=== PATIENT | female | born 1940 | race African-American/Black ===

== ENCOUNTER 2016-11-30 23:53 | Inpatient (IN) | payer BC ==
[2016-12-01 00:34] VITALS: BMI 31.8
--- NOTE | 2016-12-01 01:20 | PDOC ---
History of Present Illness - General History Source: Patient, Family (Daughter), Old Records Exam Limitations: No Limitations - History of Present Illness Initial Comments: 12/01/16 01:38 The patient is a 76 year old female, with a significant past medical history of hypertension, hyperlipidemia, diabetes, rheumatoid arthritis and kidney CA s/p left nephrectomy, who presents to the emergency department with left knee pain just prior to presentation. The patient states that she was on her way out of the bathroom tonight when her left knee buckled. She called out to her daughter who was able to help her into a chair. The patients daughter is at the bedside. The patients daughter reports that her mother was wearing knee braces recently to stabilize her knees as her knee replacements needed to be redone but her mother did not want to go through another surgery. The patient denies any falls or trauma. The patient denies any numbness or tingling in the lower extremities. The patient denies any other injury. Allergies: Lisinopril; Meperidine HCl Past Surgical History: Left Nephrectomy (04/07/15) secondary to kidney cancer; Total Hysterectomy; Bilateral Knee Replacement (1992) Social History: Non-smoker. Denies alcohol or drug use. <Pili Celis - Last Filed: 12/01/16 01:47> <Vivi Law - Last Filed: 12/05/16 16:22> - General Chief Complaint: Pain, Acute Stated Complaint: KNEE PAIN Time Seen by Provider: 12/01/16 00:40 Past History <Pili Celis - Last Filed: 12/01/16 01:47> - Past Medical History Cancer: Yes (L KIDNEY) HTN: Yes - Surgical History Abdominal Surgery: Yes (L NEPHRECTOMY) - Psycho/Social/Smoking Cessation Hx Suicidal Ideation: No Smoking History: Never smoked Have you smoked in the past 12 months: No Information on smoking cessation initiated: No Hx Alcohol Use: No Drug/Substance Use Hx: No Substance Use Type: None <Vivi Law - Last Filed: 12/05/16 16:22> - Past Medical History Allergies/Adverse Reactions: Allergies Allergy/AdvReac Type Severity Reaction Status Date / Time lisinopril [From Prinivil] Allergy Vomiting Verified 12/01/16 00:07 meperidine HCl [From Demerol] Allergy Vomiting Verified 12/01/16 00:07 Home Medications: Ambulatory Orders Aspirin [ASA -] 81 mg PO HS 08/09/15 Atorvastatin Ca [Lipitor] 40 mg PO HS 08/09/15 Certolizumab Pegol [Cimzia] 400 mg SQ MONTHLY 08/09/15 Metoprolol Succinate [Toprol XL -] 100 mg PO DAILY 08/09/15 Nateglinide [Starlix (Nf) -] 120 mg PO ASDIR 08/09/15 Prednisone [Deltasone -] 5 mg PO DAILY 08/09/15 Ranitidine HCl [Zantac] 150 mg PO DAILY 08/09/15 Sitagliptin Phosphate [Januvia] 100 mg PO DAILY 08/09/15 Valsartan [Diovan] 80 mg PO HS 08/09/15 Amlodipine Besylate 10 mg PO DAILY 12/01/16 Review of Systems - Review of Systems Able to Perform ROS?: Yes Comments:: 12/01/16 01:39 CONSTITUTIONAL: Absent: fever, no chills, no fatigue EYES: Absent: visual changes ENT: Absent: ear pain, no sore throat CARDIOVASCULAR: Absent: chest pain, no palpitations RESPIRATORY: Absent: cough, no SOB GI: Absent: abdominal pain, no nausea, no vomiting, no constipation, no diarrhea GENITOURINARY: Absent: dysuria, no frequency, no hematuria MUSCULOSKELETAL: Present: +Left knee pain Absent: back pain, no myalgia SKIN: Absent: rash NEURO: Absent: headache <TarltonPili cox - Last Filed: 12/01/16 01:47> *Physical Exam - Vital Signs Last Vital Signs Temp Pulse Resp BP Pulse Ox 97.4 F L 80 14 119/72 99 12/01/16 00:08 12/01/16 00:08 12/01/16 00:08 12/01/16 00:08 12/01/16 00:08 - Physical Exam Comments: 12/01/16 01:47 GENERAL: Obese. Well-appearing, well-nourished. No apparent distress. HEENT: Normocephalic, atraumatic. PERRL, EOM intact. CARDIOVASCULAR: Normal S1, S2. Regular rate and rhythm. PULMONARY: Clear to auscultation bilaterally. ABDOMEN: Soft, non-tender. Protuberant abdomen. EXTREMITIES: Significant deformities of the digits related to rheumatoid arthritis. Obvious deformity of the left knee. 2+ dorsalis pedis pulses intact bilaterally. Bipedal edema. SKIN: Warm, dry. No rash. NEUROLOGICAL: Awake, alert and appropriate. Sensation is intact. 2+ proprioception intact. No focal neurological deficits. <Pili Celis - Last Filed: 12/01/16 01:47> - Vital Signs Last Vital Signs Temp Pulse Resp BP Pulse Ox 97.4 F L 80 14 119/72 99 12/01/16 00:08 12/01/16 00:08 12/01/16 00:08 12/01/16 00:08 12/01/16 00:08 <Vivi Law - Last Filed: 12/05/16 16:22> ED Treatment Course - LABORATORY CBC & Chemistry Diagram: 12/04/16 07:45 12/04/16 07:45 - RADIOLOGY Radiology Studies Ordered: Category Date Time Status FEMUR-LEFT [RAD] Stat Radiology 12/01/16 00:47 Taken KNEE 3 POS-LEFT [RAD] Stat Radiology 12/01/16 00:47 Taken LEG TIB/FIB-LEFT [RAD] Stat Radiology 12/01/16 00:47 Taken <Vivi Law - Last Filed: 12/05/16 16:22> *DC/Admit/Observation/Transfer - Attestations Scribe Attestion: 12/01/16 01:30 Documentation prepared by Pili Celis, acting as medical stenographer for Vivi Law MD. <Pili Celis - Last Filed: 12/01/16 01:47> <Vivi Law - Last Filed: 12/05/16 16:22> Diagnosis at time of Disposition: Fracture of distal end of left femur - Discharge Dispostion Disposition: TRANSFER ACUTE CARE/OTHER HOSP Condition at time of disposition: Improved - Referrals
[2016-12-01 02:27] LABS: BASOPHIL 0.3 % (0-2.0); EOSINOPHIL 0.9 % (0-4.5); MCH 31.6 pg (25.7-33.7); MCHC 33.9 g/dl (32.0-36.0); MEAN CELL VOLUME 93.4 fl (80-96); MEAN PLT VOLUME 7.9 fl (7.5-11.1); NEUTROPHILS 77.1 % (42.8-82.8); PLATELET COUNT 242 K/MM3 (134-434); RDW 13.5 % (11.6-15.6); WHITE BLOOD COUNT 10.3 K/mm3 (4.0-10.0)
[2016-12-01 02:45] LABS: INR 1.07 (0.82-1.09); PROTHROMBIN TIME (PATIENT) 11.8 SEC (9.98-11.88)
[2016-12-01 02:54] LABS: ALBUMIN 3.2 g/dl (3.4-5.0); ANION GAP 7 (8-16); BILIRUBIN,TOTAL 0.3 mg/dL (0.2-1.0); CALCIUM 7.5 mg/dL (8.5-10.1); CO2 29 mmol/L (21-32); CREATININE 1.8 mg/dL (0.55-1.02); GLUCOSE,RANDOM 97 mg/dL (74-106); SGOT/AST 22 U/L (15-37); SGPT/ALT 22 U/L (12-78); TOT PROT 7.4 g/dl (6.4-8.2)
[2016-12-01 02:55] LABS: ALK PHOS 50 U/L (45-117)
--- NOTE | 2016-12-01 04:13 | PDOC ---
*Physical Exam - Vital Signs Last Vital Signs Temp Pulse Resp BP Pulse Ox 97.4 F L 80 14 119/72 99 12/01/16 00:08 12/01/16 00:08 12/01/16 00:08 12/01/16 00:08 12/01/16 00:08 ED Treatment Course - LABORATORY CBC & Chemistry Diagram: 12/01/16 02:20 12/01/16 02:20 - ADDITIONAL ORDERS Additional order review: Laboratory Results 12/01/16 12/01/16 02:20 02:20 INR 1.07 Sodium 136 Potassium 4.8 D Chloride 100 Carbon Dioxide 29 Anion Gap 7 L BUN 27 H Creatinine 1.8 H Creat Clearance w eGFR 27.43 Random Glucose 97 Calcium 7.5 L Total Bilirubin 0.3 D AST 22 ALT 22 Alkaline Phosphatase 50 Total Protein 7.4 Albumin 3.2 L 12/01/16 02:20 RBC 3.31 L MCV 93.4 MCHC 33.9 RDW 13.5 MPV 7.9 D Neutrophils % 77.1 D Lymphocytes % 15.8 D Monocytes % 5.9 Eosinophils % 0.9 Basophils % 0.3 - Medications Given in the ED: ED Medications Discontinued Medications Generic Name Dose Route Start Last Admin Trade Name Freq PRN Reason Stop Dose Admin Oxycodone/Acetaminophen 1 combo 12/01/16 02:50 12/01/16 03:09 Percocet 5/325 - PO 12/01/16 02:51 1 combo ONCE ONE Administration *DC/Admit/Observation/Transfer Diagnosis at time of Disposition: Fracture of distal end of left femur Qualifiers: Encounter type: initial encounter Fracture type: closed - Discharge Dispostion Condition at time of disposition: Stable Admit: Yes - Referrals Referrals: STAFF,NOT ON [Primary Care Provider] - - Patient Instructions - Post Discharge Activity
--- NOTE | 2016-12-01 04:40 | PN ---
Teaching Attending Note Name of Resident: Oracio Mistry ATTENDING PHYSICIAN STATEMENT I saw and evaluated the patient. I reviewed the resident's note and discussed the case with the resident. I agree with the resident's findings and plan as documented. SUBJECTIVE: 76 yo F with pmhx of HTN, HLD, DM, RA, Renal Ca s/p L. nephrectomy, who presents with knee pain. States she was on her way to go to the bathroom. She felt her L. Knee give out. States she didn't fall, but sat on a chair. Notes pain in L. Knee. States she is also on chronic steriods due to her RA. OBJECTIVE: Physical: VS: Vital Signs Period Temp Pulse Resp BP Sys/Olson Pulse Ox Last 24 Hr 97.4 F 80 14 119/72 99 GEN: NAD, resting in bed HEENT: NCAT, PERRL, Throat without erythema or exudates CARD: RRR S1, S2 RESP: CTAB ABD: BS X4, - C/C/E EXT: L. knee bent and swollen, pt. unable to straighten, pulses intact bilaterally. CBCD WBC 10.3 K/mm3 (4.0-10.0) H D 12/01/16 02:20 RBC 3.31 M/mm3 (3.60-5.2) L 12/01/16 02:20 Hgb 10.5 GM/dL (10.7-15.3) L 12/01/16 02:20 Hct 30.9 % (32.4-45.2) L 12/01/16 02:20 MCV 93.4 fl (80-96) 12/01/16 02:20 MCHC 33.9 g/dl (32.0-36.0) 12/01/16 02:20 RDW 13.5 % (11.6-15.6) 12/01/16 02:20 Plt Count 242 K/MM3 (134-434) 12/01/16 02:20 MPV 7.9 fl (7.5-11.1) D 12/01/16 02:20 CMP Sodium 136 mmol/L (136-145) 12/01/16 02:20 Potassium 4.8 mmol/L (3.5-5.1) D 12/01/16 02:20 Chloride 100 mmol/L (98-107) 12/01/16 02:20 Carbon Dioxide 29 mmol/L (21-32) 12/01/16 02:20 Anion Gap 7 (8-16) L 12/01/16 02:20 BUN 27 mg/dL (7-18) H 12/01/16 02:20 Creatinine 1.8 mg/dL (0.55-1.02) H 12/01/16 02:20 Creat Clearance w eGFR 27.43 (>60) 12/01/16 02:20 Random Glucose 97 mg/dL (74-106) 12/01/16 02:20 Calcium 7.5 mg/dL (8.5-10.1) L 12/01/16 02:20 Total Bilirubin 0.3 mg/dL (0.2-1.0) D 12/01/16 02:20 AST 22 U/L (15-37) 12/01/16 02:20 ALT 22 U/L (12-78) 12/01/16 02:20 Alkaline Phosphatase 50 U/L (45-117) 12/01/16 02:20 Total Protein 7.4 g/dl (6.4-8.2) 12/01/16 02:20 Albumin 3.2 g/dl (3.4-5.0) L 12/01/16 02:20 Xray: L. Distal femoral fx, with extension to joint replacement Hepatitis Profile WBC 10.3 K/mm3 (4.0-10.0) H D 12/01/16 02:20 RBC 3.31 M/mm3 (3.60-5.2) L 12/01/16 02:20 Hgb 10.5 GM/dL (10.7-15.3) L 12/01/16 02:20 Hct 30.9 % (32.4-45.2) L 12/01/16 02:20 MCV 93.4 fl (80-96) 12/01/16 02:20 Neutrophils % 77.1 % (42.8-82.8) D 12/01/16 02:20 Lymphocytes % 15.8 % (8-40) D 12/01/16 02:20 Monocytes % 5.9 % (3.8-10.2) 12/01/16 02:20 Basophils % 0.3 % (0-2.0) 12/01/16 02:20 Home Medications Medication Instructions Recorded Aspirin [ASA -] 81 mg PO HS 08/09/15 Atorvastatin Ca [Lipitor] 40 mg PO HS 08/09/15 Certolizumab Pegol [Cimzia] 400 mg SQ MONTHLY 08/09/15 Metoprolol Succinate [Toprol Xl -] 100 mg PO DAILY 08/09/15 Nateglinide [Starlix (Nf)] 120 mg PO ASDIR 08/09/15 Prednisone [Deltasone -] 5 mg PO DAILY 08/09/15 Ranitidine HCl [Zantac] 150 mg PO DAILY 08/09/15 Sitagliptin Phosphate [Januvia] 100 mg PO DAILY 08/09/15 Valsartan [Diovan] 80 mg PO HS 08/09/15 Amlodipine Besylate 10 mg PO DAILY 12/01/16 ASSESSMENT AND PLAN: 76 F with pmhf NIDDM, HTN, RA on Cimzia (chronic sterioda), who presents s/p Knee buckeling found to have L. Distal femoral fracture 1.) L. Distal Femoral Fx - Ortho consult - Coags - Repeat CBC - NPO - TYpe and Screem 2.) NIDDM - FS - RAISS - Hold PO meds 3.) HLD - C/W Statin 4.) HTN - C/W Home meds 5.) RA - On CImzia oupt. - C/W Prednisone 6.) DVT Ppx - Mod Risk- AC per Ortho
[2016-12-01] MEDS ORDERED: HYDROmorphone HCL CARPU-JECT 1 MG/1 ML DISP.SYRIN IVPUSH PRN (05:17)
--- NOTE | 2016-12-01 05:44 | HP ---
CHIEF COMPLAINT: Left Knee Pain PCP: Dr. Jeffry Bernal in [place] [phone] HISTORY OF PRESENT ILLNESS: 76 year old F with pmh of HTN, HLD, DM, RA, Kidney CA s/p nephrectomy in 04/2015 presenting to the ED with left knee pain. Patient states her knee buckled as she was leaving the bathroom. Her daughter helped her into a chair. She states the knee pain began suddenly after it buckled and was an 8/10, radiating down her leg. Patient has a hx of bilateral knee replacement >20 yrs ago. Patient was re evaluated 4 years ago and was recommended by her orthopedist to have her knee replacement redone. Patient did not want to undergo a procedure at the time , so she was recommended to wear knee braces. Patient denies fever, chills, SOB, chest pain, numbness, tingling ER course was notable for: (1) CBC- wbc 10.3, BMP- Cr-1.8 (2) Femur X-ray- Left-- distal femur fracture Recent Travel: denies PAST MEDICAL HISTORY: As stated above PAST SURGICAL HISTORY: B/l knee replacement, total hysterectomy, and nephrectomy Social History: Smoking:denies Alcohol:denies Drugs: denies Family History: Allergies lisinopril [From Prinivil] Allergy (Verified 12/01/16 00:07) Vomiting meperidine HCl [From Demerol] Allergy (Verified 12/01/16 00:07) Vomiting HOME MEDICATIONS: Home Medications Medication Instructions Recorded Aspirin [ASA -] 81 mg PO HS 08/09/15 Atorvastatin Ca [Lipitor] 40 mg PO HS 08/09/15 Certolizumab Pegol [Cimzia] 400 mg SQ MONTHLY 08/09/15 Metoprolol Succinate [Toprol Xl -] 100 mg PO DAILY 08/09/15 Nateglinide [Starlix (Nf)] 120 mg PO ASDIR 08/09/15 Prednisone [Deltasone -] 5 mg PO DAILY 08/09/15 Ranitidine HCl [Zantac] 150 mg PO DAILY 08/09/15 Sitagliptin Phosphate [Januvia] 100 mg PO DAILY 08/09/15 Valsartan [Diovan] 80 mg PO HS 08/09/15 Amlodipine Besylate 10 mg PO DAILY 08/30/17 REVIEW OF SYSTEMS CONSTITUTIONAL: Absent: fever, chills, diaphoresis, generalized weakness, malaise, loss of appetite, weight change HEENT: Absent: rhinorrhea, nasal congestion, throat pain, throat swelling, difficulty swallowing, mouth swelling, ear pain, eye pain, visual changes CARDIOVASCULAR: Absent: chest pain, syncope, palpitations, irregular heart rate, lightheadedness , peripheral edema RESPIRATORY: Absent: cough, shortness of breath, dyspnea with exertion, orthopnea, wheezing, stridor, hemoptysis GASTROINTESTINAL: Absent: abdominal pain, abdominal distension, nausea, vomiting, diarrhea, constipation, melena, hematochezia GENITOURINARY: Absent: dysuria, frequency, urgency, hesitancy, hematuria, flank pain, genital pain MUSCULOSKELETAL: Absent: myalgia, arthralgia, joint swelling, back pain, neck pain, +knee pain SKIN: Absent: rash, itching, pallor HEMATOLOGIC/IMMUNOLOGIC: Absent: easy bleeding, easy bruising, lymphadenopathy, frequent infections ENDOCRINE: Absent: unexplained weight gain, unexplained weight loss, heat intolerance, cold intolerance NEUROLOGIC: Absent: headache, focal weakness or paresthesias, dizziness, unsteady gait, seizure, mental status changes, bladder or bowel incontinence PSYCHIATRIC: Absent: anxiety, depression, suicidal or homicidal ideation, hallucinations. PHYSICAL EXAMINATION GENERAL: Awake, alert, and fully oriented, in no acute distress. +OBESE, +SHOALWATER HEAD: Normal with no signs of trauma. EYES: Pupils equal, round and reactive to light, extraocular movements intact, sclera anicteric, conjunctiva clear. No lid lag. EARS, NOSE, THROAT: Ears normal, nares patent, oropharynx clear without exudates. Moist mucous membranes. NECK: Normal range of motion, supple without lymphadenopathy, JVD, or masses. LUNGS: Breath sounds equal, clear to auscultation bilaterally. No wheezes, and no crackles. No accessory muscle use. HEART: Regular rate and rhythm, normal S1 and S2 without murmur, rub or gallop. ABDOMEN: Soft, nontender, not distended, normoactive bowel sounds, no guarding, no rebound, no masses. No hepatomegaly or splenomegaly. MUSCULOSKELETAL: +ULNAR DEVIATION B/L, SIGNIFICANT DEFORMITIES RELATED TO RA, + LEFT KNEE DEFORMITY UPPER EXTREMITIES: 2+ RADIAL pulses, warm, well-perfused. No cyanosis. No clubbing. No peripheral edema. LOWER EXTREMITIES: 2+ DP pulses, warm, well-perfused. No calf tenderness. + BIPEDAL EDEMA NEUROLOGICAL: Cranial nerves II-XII intact. Normal speech. Normal gait. PSYCHIATRIC: Cooperative. Good eye contact. Appropriate mood and affect. SKIN: Warm, dry, normal turgor, no rashes or lesions noted, normal capillary refill. ASSESSMENT/PLAN: 76 year old F with pmh of HTN, HLD, DM, RA, Kidney CA s/p nephrectomy in 04/2015 presenting to the ED with left knee pain admitted for distal femur fracture #Left Distal Femur Fracture -Orthopedic consult, Dr. Gonzales -Type and Screen -PT/INR, PTT -AM CBC -NPO -Pain control with 0.5 mg dilaudid q4h prn -Hold aspirin 81 mg #Diabetes Mellitus, Type 2 -BGM ACHS -ISS ACHS -Hold home medications (Januvia and Nateglinide) #HLD -Continue lipitor 40 mg po hs #HTN -Continue Toporol xl 100 mg po daily -Continue Amlodipine 10 mg po daily -Continue Diovan 80 mg po hs #Rheumatoid Arthritis -Continue Prednisone 5 mg po daily -Patient takes Cimzia 400 mg sq 1x/monthly #FEN/GI -IVF @ 75 cc/hr -wnl -NPO #Ppx -DVT- Early ambulation -GI- Zantac 150 mg po daily Dispo: pending ortho recommendations Visit type - Emergency Visit Emergency Visit: Yes ED Registration Date: 12/01/16 Care time: The patient presented to the Emergency Department on the above date and was hospitalized for further evaluation of their emergent condition. - New Patient This patient is new to me today: Yes Date on this admission: 12/02/16 - Critical Care Critical Care patient: No
[2016-12-01] MEDS: SODIUM CHLORIDE 0.45% 1,000 ML IV SCH (06:00)
[2016-12-01] MEDS: INSULIN SLIDING SCALE (NOVOLOG) 1 VIAL SQ SCH ×4 (07:37→21:25)
[2016-12-01] MEDS: HYDROmorphone HCL CARPU-JECT 1 MG/1 ML DISP.SYRIN IVPB PRN ×3 (10:17→20:19)
[2016-12-01] MEDS: METOPROLOL SUCCINATE 100 MG TAB.SR.24H (FP) PO SCH ×2 (10:18→13:10)
[2016-12-01] MEDS: amLODIPine BESYLATE 10 MG TABLET (FP) PO SCH ×2 (10:18→13:11)
[2016-12-01] MEDS: RANITIDINE HCL 150 MG TABLET (FP) PO SCH ×2 (10:19→13:10)
[2016-12-01] MEDS: predniSONE 5 MG TABLET (UD) PO SCH (10:20)
--- NOTE | 2016-12-01 11:05 | PN ---
Physical Exam: SUBJECTIVE: Patient seen and examined. Patient states her pain is controlled on the medications given to her in the ED. She only has pain when moving the affected limb. Pending ortho consult. OBJECTIVE: Vital Signs Period Temp Pulse Resp BP Sys/Olson Pulse Ox Last 24 Hr 98 F-98.8 F 72-75 18-20 124-128/65-68 97-98 GENERAL: The patient is awake, alert, and fully oriented, in no acute distress. HEAD: Normal with no signs of trauma. NECK: Trachea midline, full range of motion, supple. LUNGS: Breath sounds equal, clear to auscultation bilaterally, no wheezes, no crackles, no accessory muscle use. HEART: Regular rate and rhythm, S1, S2 without murmur, rub or gallop. ABDOMEN: Soft, nontender, nondistended, normoactive bowel sounds, no guarding, no rebound. EXTREMITIES: 2+ pulses, warm, well-perfused. 2+ pitting edema over both lower extremities. Knee replacement scars on both knees. Right knee is warm and swollen. Exquisite tenderness upon extension of right knee. Left lower extremity WNL NEUROLOGICAL: Cranial nerves II through X grossly intact. Normal speech, gait not observed. PSYCH: Normal mood, normal affect. SKIN: Warm, dry, normal turgor, no rashes or lesions noted Laboratory Results - last 24 hr 12/01/16 07:36 POC Glucometer [id number] Active Medications Generic Name Dose Route Start Last Admin Trade Name Freq PRN Reason Stop Dose Admin Amlodipine Besylate 10 mg 12/01/16 10:00 Norvasc - PO DAILY [facility] Atorvastatin Calcium 40 mg 12/01/16 22:00 Lipitor - PO HS CINDY Hydromorphone HCl 0.5 mg 12/01/16 09:53 12/01/16 10:17 Dilaudid Injection - IVPB 0.5 mg Q4H PRN Administration PAIN Sodium Chloride 1,000 mls @ 75 mls/hr 12/01/16 05:30 12/01/16 06:00 1/2 Normal Saline IV 75 mls/hr ASDIR CINDY Administration Insulin Aspart 1 vial 12/01/16 07:00 12/01/16 07:37 Novolog Vial Sliding Scale - SQ Not Given ACHS [facility] Protocol Metoprolol Succinate 100 mg 12/01/16 10:00 Toprol Xl - PO DAILY CINDY Pneumococcal 13-Valent Conj Vacc 0.5 ml 12/01/16 12:00 Prevnar 13 Syringe - IM 12/01/16 12:01 .ONCE ONE Prednisone 5 mg 12/01/16 10:00 12/01/16 10:20 Deltasone - PO Not Given DAILY [facility] Ranitidine HCl 150 mg 12/01/16 10:00 Zantac - PO DAILY [facility] Valsartan 80 mg 12/01/16 22:00 Diovan - PO HS [facility] ASSESSMENT/PLAN: 76 year old F with pmh of HTN, HLD, DM, RA, Kidney CA s/p nephrectomy in 04/2015 presenting to the ED with left knee pain admitted for distal femur fracture #Left Distal Femur Fracture -Orthopedic consult, Dr. Gonzales -Type and Screen -PT/INR, PTT -AM CBC -NPO -Pain control with 0.5 mg dilaudid IVPB q4h prn -Hold aspirin 81 mg #Diabetes Mellitus, Type 2 -BGM ACHS -ISS ACHS -Hold home medications (Januvia and Nateglinide) #HLD -Continue lipitor 40 mg po hs #HTN -Continue Toporol xl 100 mg po daily -Continue Amlodipine 10 mg po daily -Continue Diovan 80 mg po hs #Rheumatoid Arthritis -Continue Prednisone 5 mg po daily -Patient takes Cimzia 400 mg sq 1x/monthly #FEN/GI -IVF @ 75 cc/hr; If patient does not urinate, consider increasing rate to 100ml/ hr -wnl -NPO #Ppx -DVT- Early ambulation -GI- Zantac 150 mg po daily Dispo: pending ortho recommendations Problem List - Problems (1) Fracture of distal end of left femur Code(s): S72.402A - UNSP FRACTURE OF LOWER END OF LEFT FEMUR, INIT FOR CLOS FX Qualifiers: Encounter type: initial encounter Fracture type: closed (2) HTN, goal below 150/90 Code(s): I10 - ESSENTIAL (PRIMARY) HYPERTENSION Visit type - Emergency Visit Emergency Visit: Yes ED Registration Date: 12/01/16 Care time: The patient presented to the Emergency Department on the above date and was hospitalized for further evaluation of their emergent condition. - New Patient This patient is new to me today: Yes Date on this admission: 12/01/16 - Critical Care Critical Care patient: No
[2016-12-01 11:18] LABS: BASOPHIL 0.2 % (0-2.0); EOSINOPHIL 1.6 % (0-4.5); MCHC 33.1 g/dl (32.0-36.0); MEAN CELL VOLUME 93.6 fl (80-96); MEAN PLT VOLUME 8.4 fl (7.5-11.1); NEUTROPHILS 69.5 % (42.8-82.8); PLATELET COUNT 200 K/MM3 (134-434); RDW 13.8 % (11.6-15.6); WHITE BLOOD COUNT 7.9 K/mm3 (4.0-10.0)
[2016-12-01 11:32] LABS: INR 1.13 (0.82-1.09); PROTHROMBIN TIME (PATIENT) 12.5 SEC (9.98-11.88)
[2016-12-01 11:35] LABS: ACTIVATED PTT 26.8 SECONDS (26.9-34.4)
--- NOTE | 2016-12-01 11:39 | EKG ---
Test Reason : Blood Pressure : / mmHG Vent. Rate : 085 BPM Atrial Rate : 085 BPM P-R Int : 180 ms QRS Dur : 086 ms QT Int : 380 ms P-R-T Axes : 042 -43 018 degrees QTc Int : 452 ms NORMAL SINUS RHYTHM LEFT AXIS DEVIATION MINIMAL VOLTAGE CRITERIA FOR LVH, MAY BE NORMAL VARIANT ABNORMAL ECG WHEN COMPARED WITH ECG OF 09-AUG-2015 18:47, NO SIGNIFICANT CHANGE WAS FOUND Confirmed by MARINO HAN, JEREMI ([id number]) on 12/01/2016 11:38:43 AM Referred By: Confirmed By:JEREMI PICHARDO MD
[2016-12-01] MEDS ORDERED: PNEUMOC 13-VAL CONJ-DIP CRM/PF 0.5 ML DISP.SYRIN IM ONE (12:00)
--- NOTE | 2016-12-01 12:21 | PN ---
Teaching Attending Note Name of Resident: Sanjay Ortega ATTENDING PHYSICIAN STATEMENT I saw and evaluated the patient. I reviewed the resident's note and discussed the case with the resident. I agree with the resident's findings and plan as documented. SUBJECTIVE: Patient complains of pain in left leg. OBJECTIVE: Vital Signs Period Temp Pulse Resp BP Sys/Olson Pulse Ox Last 24 Hr 97.4 F-98.8 F 72-80 14-20 119-128/65-72 97-99 HEART: S1S2, RRR LUNGS: Clear ABDOMEN: Soft, non-tender, non-distended, normal BS EXTREMITIES: No edema ASSESSMENT AND PLAN: This is a 76 year old woman with a history of HTN, type 2 DM, hyperlipidemia, RA , kidney cancer, nephrectomy who presented to the ER with left knee pain. 1. Distal left femur fracture - Awaiting orthopedic surgery consult - Pain control 2. Type 2 diabetes mellitus - Hold Januvia, Starlix - Fingersticks with Novolog sliding scale 3. Hyperlipidemia - Continue Lipitor 4. HTN - Continue Toprol XL, Diovan, Norvasc 5. Rheumatoid arthritis - Continue Prednisone, Cimzia 6. CKD, probable stage 4 7. History of kidney cancer, nephrectomy
[2016-12-01] MEDS ORDERED: BENZOCAINE/MENTH/CETYLPYRD CL 1 EACH LOZENGE MM PRN (13:22)
[2016-12-01] MEDS ORDERED: SODIUM CHLORIDE 100 ML IVPB ONE (14:02)
[2016-12-01] MEDS ORDERED: PANTOPRAZOLE SODIUM 40 MG VIAL ONE (14:02)
[2016-12-01] MEDS: PANTOPRAZOLE SODIUM 40 MG in SODIUM CHLORIDE 100 ML IVPB SCH (14:16)
[2016-12-01] MEDS: NYSTATIN 500,000 UNITS/5 ML SUSPENSION PO SCH (17:23)
[2016-12-01] MEDS: ATORVASTATIN CA 40 MG TABLET (FP) PO SCH (21:24)
[2016-12-01] MEDS: VALSARTAN 80 MG TABLET (UD) PO SCH (21:24)
[2016-12-02] MEDS: NYSTATIN 500,000 UNITS/5 ML SUSPENSION PO SCH ×5 (00:25→23:19)
[2016-12-02] MEDS: HYDROmorphone HCL CARPU-JECT 1 MG/1 ML DISP.SYRIN IVPB PRN ×3 (05:26→17:19)
[2016-12-02] MEDS: SODIUM CHLORIDE 0.45% 1,000 ML IV SCH (05:45)
[2016-12-02 06:59] LABS: MCHC 33.2 g/dl (32.0-36.0); MEAN CELL VOLUME 93.4 fl (80-96); MEAN PLT VOLUME 8.2 fl (7.5-11.1); PLATELET COUNT 179 K/MM3 (134-434); RDW 13.5 % (11.6-15.6); WHITE BLOOD COUNT 10.4 K/mm3 (4.0-10.0)
[2016-12-02] MEDS: INSULIN SLIDING SCALE (NOVOLOG) 1 VIAL SQ SCH ×4 (07:08→23:17)
[2016-12-02 07:12] LABS: ANION GAP 8 (8-16); CO2 25 mmol/L (21-32); CREATININE 1.5 mg/dL (0.55-1.02); GLUCOSE,RANDOM 95 mg/dL (74-106)
[2016-12-02 07:23] LABS: CALCIUM 6.6 mg/dL (8.5-10.1)
[2016-12-02] MEDS ORDERED: SODIUM CHLORIDE 0.45% 1,000 ML IV SCH (08:05)
[2016-12-02] MEDS: SODIUM CHLORIDE 1,000 ML IV SCH (08:35)
[2016-12-02] MEDS ORDERED: PANTOPRAZOLE SODIUM 40 MG VIAL ONE (10:31)
[2016-12-02 10:32] LABS: ALBUMIN 2.8 g/dl (3.4-5.0)
[2016-12-02] MEDS ORDERED: SODIUM CHLORIDE 100 ML IVPB ONE (10:32)
[2016-12-02] MEDS: amLODIPine BESYLATE 10 MG TABLET (FP) PO SCH (10:55)
[2016-12-02] MEDS: RANITIDINE HCL 150 MG TABLET (FP) PO SCH (10:55)
[2016-12-02] MEDS: METOPROLOL SUCCINATE 100 MG TAB.SR.24H (FP) PO SCH (10:55)
[2016-12-02] MEDS: predniSONE 5 MG TABLET (UD) PO SCH (10:55)
[2016-12-02] MEDS: PANTOPRAZOLE SODIUM 40 MG in SODIUM CHLORIDE 100 ML IVPB SCH (11:51)
[2016-12-02] MEDS ORDERED: ACETAMINOPHEN 325 MG TABLET (FP) PO ONE (12:12)
[2016-12-02] MEDS: ACETAMINOPHEN 325 MG TABLET (FP) PO PRN ×2 (13:40→23:20)
--- NOTE | 2016-12-02 15:05 | PN ---
Teaching Attending Note Name of Resident: Sanjay Ortega ATTENDING PHYSICIAN STATEMENT I saw and evaluated the patient. I reviewed the resident's note and discussed the case with the resident. I agree with the resident's findings and plan as documented. SUBJECTIVE: Patient has cough with yellow sputum. OBJECTIVE: Vital Signs Period Temp Pulse Resp BP Sys/Olson Pulse Ox Last 24 Hr 98.6 F-102.5 F 87-112 18-26 106-139/54-71 98 HEART: S1S2, tachycardic LUNGS: Scattered rhonchi ABDOMEN: Soft, non-tender, non-distended, normal BS EXTREMITIES: No edema ASSESSMENT AND PLAN: This is a 76 year old woman with a history of HTN, type 2 DM, hyperlipidemia, RA , kidney cancer, nephrectomy who presented to the ER with left knee pain. 1. SIRS, possible sepsis secondary to pneumonia - Chest x-ray 2. Distal left femur fracture - Awaiting orthopedic surgery consult - Pain control 3. Type 2 diabetes mellitus - Januvia, Starlix held - Continue Novolog sliding scale 4. Hyperlipidemia - Continue Lipitor 5. HTN - Continue Toprol XL, Diovan, Norvasc 6. Rheumatoid arthritis - Continue Prednisone, Cimzia 7. CKD, probable stage 4 8. History of kidney cancer, nephrectomy
[2016-12-02 15:54] LABS: URINE APPEARANCE CLEAR; URINE BILIRUBIN NEGATIVE (NEGATIVE); URINE BLOOD 1+ (NEGATIVE); URINE COLOR YELLOW; URINE GLUCOSE (UA) NEGATIVE (NEGATIVE); URINE KETONE 1+ (NEGATIVE); URINE LEUK ESTERASE NEGATIVE (NEGATIVE); URINE NITRITE NEGATIVE (NEGATIVE); URINE PROTEIN NEGATIVE (NEGATIVE); URINE UROBILINOGEN NEGATIVE mg/dL (0.2-1.0)
--- NOTE | 2016-12-02 16:14 | PN ---
Physical Exam: SUBJECTIVE: Patient seen and examined. No events overnight, no new complaints. Patient states that her pain is controlled on her current medications. OBJECTIVE: Vital Signs Period Temp Pulse Resp BP Sys/Olson Pulse Ox Last 24 Hr 98.6 F-102.5 F 87-112 18-26 106-139/54-71 98 GENERAL: The patient is awake, alert, and fully oriented, in no acute distress. HEAD: Normal with no signs of trauma. NECK: Trachea midline, full range of motion, supple. LUNGS: Breath sounds equal, clear to auscultation bilaterally, no wheezes, no crackles, no accessory muscle use. HEART: Regular rate and rhythm, S1, S2 without murmur, rub or gallop. ABDOMEN: Soft, nontender, nondistended, normoactive bowel sounds, no guarding, no rebound. EXTREMITIES: 2+ pulses, warm, well-perfused, 2+ pedal edema b/l. Left knee swollen. No tenderness to palpation. no change from yesterday. Fingers medially deviated 2/2 preexisting RA. Both ankles with eversion deformities 2/2 RA NEUROLOGICAL: Cranial nerves II through X grossly intact. Normal speech, gait not observed. PSYCH: Normal mood, normal affect. SKIN: Warm, dry, normal turgor, no rashes or lesions noted Laboratory Results - last 24 hr 12/01/16 12/01/16 12/02/16 17:17 21:24 05:55 WBC 10.4 H D RBC 2.82 L Hgb 8.7 L Hct 26.4 L MCV 93.4 MCH 31.0 MCHC 33.2 RDW 13.5 Plt Count 179 MPV 8.2 ESR Sodium Potassium Chloride Carbon Dioxide Anion Gap BUN Creatinine POC Glucometer 116 111 Random Glucose Calcium C-Reactive Protein Albumin 12/02/16 12/02/16 12/02/16 05:55 05:55 07:08 WBC RBC Hgb Hct MCV MCH MCHC RDW Plt Count MPV ESR Sodium 133 L Potassium 4.0 Chloride 100 Carbon Dioxide 25 Anion Gap 8 BUN 21 H D Creatinine 1.5 H POC Glucometer 104 Random Glucose 95 Calcium 6.6 L* C-Reactive Protein Albumin 2.8 L Cancelled 12/02/16 12/02/16 12/02/16 11:47 13:55 13:55 WBC RBC Hgb Hct MCV MCH MCHC RDW Plt Count MPV ESR 82 H Sodium Potassium Chloride Carbon Dioxide Anion Gap BUN Creatinine POC Glucometer 112 Random Glucose Calcium C-Reactive Protein 12.8 H Albumin Active Medications Generic Name Dose Route Start Last Admin Trade Name Freq PRN Reason Stop Dose Admin Acetaminophen 650 mg 12/02/16 13:07 12/02/16 13:40 Tylenol - PO 650 mg Q6H PRN Administration FEVER OR PAIN Amlodipine Besylate 10 mg 12/01/16 10:00 12/02/16 10:55 Norvasc - PO 10 mg DAILY CINDY Administration Atorvastatin Calcium 40 mg 12/01/16 22:00 12/01/16 21:24 Lipitor - PO 40 mg HS CINDY Administration Benzocaine/Menthol 1 each 12/01/16 13:22 Cepacol Lozenge - MM PRN PRN SORE THROAT Calcium Carbonate 650 mg 12/02/16 16:00 Calcium Carbonate - PO DAILY CINDY Heparin Sodium (Porcine) 5,000 unit 12/02/16 22:00 Heparin - SQ TID CINDY Hydromorphone HCl 1 mg 12/02/16 12:13 Dilaudid Injection - IVPB Q3H PRN PAIN Sodium Chloride 1,000 mls @ 100 mls/hr 12/02/16 08:15 12/02/16 08:35 Normal Saline - IV 100 mls/hr ASDIR CINDY Administration Insulin Aspart 1 vial 12/01/16 07:00 12/02/16 11:54 Novolog Vial Sliding Scale - SQ Not Given ACHS [facility] Protocol Metoprolol Succinate 100 mg 12/01/16 10:00 12/02/16 10:55 Toprol Xl - PO 100 mg DAILY CINDY Administration Nystatin 500,000 units 12/01/16 18:00 12/02/16 12:03 Nystatin Oral Suspension - PO 500,000 units Q6HPO CINDY Administration Prednisone 5 mg 12/01/16 10:00 12/02/16 10:55 Deltasone - PO 5 mg DAILY CINDY Administration Ranitidine HCl 150 mg 12/01/16 13:29 12/02/16 10:55 Zantac - PO 150 mg DAILY CINDY Administration Valsartan 80 mg 12/01/16 22:00 12/01/16 21:24 Diovan - PO 80 mg HS CINDY Administration ASSESSMENT/PLAN: 76 year old F with pmh of HTN, HLD, DM, RA, Kidney CA s/p nephrectomy in 04/2015 presenting to the ED with left knee pain admitted for distal femur fracture #Left Distal Femur Fracture -Orthopedic consult, Dr. Gonzales: Patient requires transfer to Tertiary care center for further management. -Pain control with 1 mg dilaudid IVPB q3h prn -Hold aspirin 81 mg #Fever likely 2/2 atalectasis vs PNA -starting empiric ceftriaxone and azithromycin -CXR sows atalectasis on the left and opacity on the right not present on admission -incentive spirometry -tylenol 625PO Q6H -f/u urine cx, UA -f/u blood cx -rpt cxr in AM #Diabetes Mellitus, Type 2 -BGM ACHS -ISS ACHS -Hold home medications (Januvia and Nateglinide) #HLD -Continue lipitor 40 mg po hs #HTN -Continue Toporol xl 100 mg po daily -Continue Amlodipine 10 mg po daily -Continue Diovan 80 mg po hs #Rheumatoid Arthritis -Continue Prednisone 5 mg po daily -Patient takes Cimzia 400 mg sq 1x/monthly #FEN/GI -NS @ 100 -calcium 7.2 today, repleted -diabetic diet #Ppx -DVT- Hep SQ 5Ku TID -GI- Zantac 150 mg po daily; protonix 40mg PO Dispo: pending transfer to [facility] service. Spoke with resident; they will take her tomorrow if afebrile. Problem List - Problems (1) Fracture of distal end of left femur Code(s): S72.402A - UNSP FRACTURE OF LOWER END OF LEFT FEMUR, INIT FOR CLOS FX Qualifiers: Encounter type: initial encounter Fracture type: closed (2) HTN, goal below 150/90 Code(s): I10 - ESSENTIAL (PRIMARY) HYPERTENSION Visit type - Emergency Visit Emergency Visit: Yes ED Registration Date: 12/01/16 Care time: The patient presented to the Emergency Department on the above date and was hospitalized for further evaluation of their emergent condition. - New Patient This patient is new to me today: No - Critical Care Critical Care patient: No
[2016-12-02] MEDS ORDERED: AZITHROMYCIN IVPB 500 MG in DEXTROSE 5%-WATER - 250 ML IVPB SCH (16:15)
[2016-12-02 16:35] LABS: URINE BACTERIA RARE /hpf (NONE SEEN); URINE MUCUS RARE; URINE RBC <1 /hpf (0-3); URINE WBC <1 /hpf (3-5)
[2016-12-02] MEDS ORDERED: DEXTROSE 5%-WATER - 50 ML IVPB ONE (17:10)
[2016-12-02] MEDS ORDERED: cefTRIAXone SODIUM 1 GM VIAL ONE (17:10)
[2016-12-02] MEDS: CALCIUM CARBONATE 650 MG TABLET PO SCH (17:20)
[2016-12-02] MEDS: CEFTRIAXONE 1 GM in DEXTROSE 5%-WATER - 50 ML IVPB SCH (18:08)
[2016-12-02] MEDS: AZITHROMYCIN IVPB 500 MG/250 ML D5W PRE-DOCKED IVPB SCH (18:47)
[2016-12-02] MEDS: VALSARTAN 80 MG TABLET (UD) PO SCH (23:17)
[2016-12-02] MEDS: HEPARIN NA (PORCINE) 5,000 UNITS/ML 1ML VIAL SQ SCH (23:17)
[2016-12-02] MEDS: ATORVASTATIN CA 40 MG TABLET (FP) PO SCH (23:17)
[2016-12-03] MEDS: SODIUM CHLORIDE 1,000 ML IV SCH ×3 (01:23→14:22)
[2016-12-03] MEDS: NYSTATIN 500,000 UNITS/5 ML SUSPENSION PO SCH ×4 (06:19→23:10)
[2016-12-03] MEDS: HEPARIN NA (PORCINE) 5,000 UNITS/ML 1ML VIAL SQ SCH ×3 (06:19→21:49)
[2016-12-03] MEDS: HYDROmorphone HCL CARPU-JECT 1 MG/1 ML DISP.SYRIN IVPB PRN ×3 (06:22→16:36)
[2016-12-03] MEDS: INSULIN SLIDING SCALE (NOVOLOG) 1 VIAL SQ SCH ×5 (06:28→21:45)
[2016-12-03 08:19] LABS: BASOPHIL 0.2 % (0-2.0); EOSINOPHIL 0.7 % (0-4.5); MCH 31.1 pg (25.7-33.7); MCHC 33.4 g/dl (32.0-36.0); MEAN CELL VOLUME 93.1 fl (80-96); MEAN PLT VOLUME 7.7 fl (7.5-11.1); NEUTROPHILS 82.3 % (42.8-82.8); PLATELET COUNT 180 K/MM3 (134-434); RDW 13.1 % (11.6-15.6)
[2016-12-03 08:44] LABS: ALBUMIN 2.2 g/dl (3.4-5.0); ALK PHOS 50 U/L (45-117); ANION GAP 7 (8-16); BILIRUBIN,TOTAL 0.5 mg/dL (0.2-1.0); CO2 24 mmol/L (21-32); CREATININE 1.7 mg/dL (0.55-1.02); GLUCOSE,RANDOM 130 mg/dL (74-106); SGOT/AST 25 U/L (15-37); SGPT/ALT 16 U/L (12-78); TOT PROT 5.7 g/dl (6.4-8.2)
[2016-12-03] MEDS ORDERED: cefTRIAXone SODIUM 1 GM VIAL ONE (10:06)
[2016-12-03] MEDS ORDERED: DEXTROSE 5%-WATER - 50 ML IVPB ONE (10:06)
[2016-12-03] MEDS: amLODIPine BESYLATE 10 MG TABLET (FP) PO SCH (10:15)
[2016-12-03] MEDS: predniSONE 5 MG TABLET (UD) PO SCH (10:15)
[2016-12-03] MEDS: METOPROLOL SUCCINATE 100 MG TAB.SR.24H (FP) PO SCH (10:15)
[2016-12-03] MEDS: CALCIUM CARBONATE 650 MG TABLET PO SCH (10:15)
[2016-12-03] MEDS: CEFTRIAXONE 1 GM in DEXTROSE 5%-WATER - 50 ML IVPB SCH (10:16)
[2016-12-03] MEDS: RANITIDINE HCL 150 MG TABLET (FP) PO SCH (10:16)
[2016-12-03 10:18] LABS: CALCIUM 6.5 mg/dL (8.5-10.1)
[2016-12-03] MEDS: AZITHROMYCIN IVPB 500 MG/250 ML D5W PRE-DOCKED IVPB SCH (11:30)
[2016-12-03] MEDS: CALCIUM (OYSTER SHELL) 500 MG TABLET (FP) PO SCH ×2 (14:22→21:49)
[2016-12-03] MEDS: ACETAMINOPHEN 325 MG TABLET (FP) PO PRN (17:47)
[2016-12-03] MEDS ORDERED: INSULIN (NOVOLOG) ASPART 100 UNITS/ML 10ML VIAL ONE (17:51)
--- NOTE | 2016-12-03 18:01 | PN ---
Teaching Attending Note Name of Resident: Sanjay Ortega ATTENDING PHYSICIAN STATEMENT I saw and evaluated the patient. I reviewed the resident's note and discussed the case with the resident. I agree with the resident's findings and plan as documented. SUBJECTIVE: Patient feels better. OBJECTIVE: Vital Signs Period Temp Pulse Resp BP Sys/Olson Pulse Ox Last 24 Hr 98.6 F-102.1 F 92-104 18-24 107-140/61-73 97-98 HEART: S1S2, RRR LUNGS: Clear ABDOMEN: Soft, non-tender, non-distended, normal BS EXTREMITIES: No edema Current Medications Generic Name Dose Route Start Last Admin Trade Name Freq PRN Reason Stop Dose Admin Acetaminophen 650 mg 12/02/16 13:07 12/03/16 17:47 Tylenol - PO 650 mg Q6H PRN Administration FEVER OR PAIN Amlodipine Besylate 10 mg 12/01/16 10:00 12/03/16 10:15 Norvasc - PO 10 mg DAILY CINDY Administration Atorvastatin Calcium 40 mg 12/01/16 22:00 12/02/16 23:17 Lipitor - PO 40 mg HS CINDY Administration Benzocaine/Menthol 1 each 12/01/16 13:22 Cepacol Lozenge - MM PRN PRN SORE THROAT Calcium Carbonate 500 mg 12/03/16 14:00 12/03/16 14:22 Os-Husam 500mg - PO 500 mg TID CINDY Administration Heparin Sodium (Porcine) 5,000 unit 12/02/16 22:00 12/03/16 14:21 Heparin - SQ 5,000 unit TID CINDY Administration Hydromorphone HCl 1 mg 12/02/16 12:13 12/03/16 16:36 Dilaudid Injection - IVPB 1 mg Q3H PRN Administration PAIN Sodium Chloride 1,000 mls @ 100 mls/hr 12/02/16 08:15 12/03/16 14:22 Normal Saline - IV 100 mls/hr ASDIR CINDY Administration Ceftriaxone Sodium 1 gm/ 50 mls @ 100 mls/hr 12/02/16 16:15 12/03/16 10:16 Dextrose IVPB 100 mls/hr DAILY CINDY Administration Azithromycin 500 mg/ Sodium 250 mls @ 250 mls/hr 12/04/16 10:00 Chloride IVPB 12/09/16 10:59 DAILY CINDY Insulin Aspart 1 vial 12/01/16 07:00 12/03/16 17:47 Novolog Vial Sliding Scale - SQ 2 units ACHS CINDY Administration Protocol Metoprolol Succinate 100 mg 12/01/16 10:00 12/03/16 10:15 Toprol Xl - PO 100 mg DAILY CINDY Administration Nystatin 500,000 units 12/01/16 18:00 12/03/16 17:47 Nystatin Oral Suspension - PO 500,000 units Q6HPO CINDY Administration Prednisone 5 mg 12/01/16 10:00 12/03/16 10:15 Deltasone - PO 5 mg DAILY CINDY Administration Ranitidine HCl 150 mg 12/01/16 13:29 12/03/16 10:16 Zantac - PO 150 mg DAILY CINDY Administration Valsartan 80 mg 12/01/16 22:00 12/02/16 23:17 Diovan - PO 80 mg HS CINDY Administration ASSESSMENT AND PLAN: This is a 76 year old woman with a history of HTN, type 2 DM, hyperlipidemia, RA , kidney cancer, nephrectomy who presented to the ER with left knee pain. 1. Sepsis secondary to pneumonia - Rocephin, Zithromax started 2. Distal left femur fracture - Ortho recommends transfer to tertiary care center 3. Type 2 diabetes mellitus - Januvia, Starlix held - Continue Novolog sliding scale 4. Hyperlipidemia - Continue Lipitor 5. HTN - Continue Toprol XL, Diovan, Norvasc 6. Rheumatoid arthritis - Continue Prednisone, Cimzia 7. CKD, probable stage 4 8. History of kidney cancer, nephrectomy 9. Oral candidiasis - Continue Nystatin
--- NOTE | 2016-12-03 19:08 | PN ---
Physical Exam: SUBJECTIVE: Patient seen and examined at bedside. No new complaints. Spiked a fever to 102.1 overnight. Cxr today improved. Pain controlled. OBJECTIVE: Vital Signs Period Temp Pulse Resp BP Sys/Olson Pulse Ox Last 24 Hr 98.6 F-102.1 F 94-104 18-24 107-140/61-73 97-98 GENERAL: The patient is awake, alert, and fully oriented, in no acute distress. HEAD: Normal with no signs of trauma. EYES: extraocular movements intact, sclera anicteric, conjunctiva clear. No ptosis. NECK: Trachea midline, full range of motion, supple. LUNGS: Breath sounds equal, clear to auscultation bilaterally, no wheezes, no crackles, no accessory muscle use. HEART: Regular rate and rhythm, S1, S2 without murmur, rub or gallop. ABDOMEN: Soft, nontender, nondistended, normoactive bowel sounds, no guarding, no rebound. EXTREMITIES: 2+ pulses, warm, well-perfused, no edema. NEUROLOGICAL: Cranial nerves II through X grossly intact. Normal speech, gait not observed. PSYCH: Normal mood, normal affect. SKIN: Warm, dry, normal turgor, no rashes or lesions noted Laboratory Results - last 24 hr 12/02/16 12/02/16 12/03/16 14:40 23:15 06:00 WBC 12.0 H RBC 2.55 L Hgb 7.9 L Hct 23.8 L MCV 93.1 MCH 31.1 MCHC 33.4 RDW 13.1 Plt Count 180 MPV 7.7 Neutrophils % 82.3 Lymphocytes % 9.5 D Monocytes % 7.3 Eosinophils % 0.7 Basophils % 0.2 Sodium Potassium Chloride Carbon Dioxide Anion Gap BUN Creatinine Creat Clearance w eGFR POC Glucometer 179 Random Glucose Lactic Acid Calcium Total Bilirubin AST ALT Alkaline Phosphatase Total Protein Albumin Urine Color Yellow Urine Appearance Clear Urine pH 5.0 Ur Specific [employer] 1.010 Urine Protein Negative Urine Glucose (UA) Negative Urine Ketones 1+ H Urine Blood 1+ H Urine Nitrite Negative Urine Bilirubin Negative Urine Urobilinogen Negative Ur Leukocyte Esterase Negative Urine RBC <1 Urine WBC <1 Urine Bacteria Rare Urine Mucus Rare 12/03/16 12/03/16 12/03/16 06:00 06:00 06:24 WBC RBC Hgb Hct MCV MCH MCHC RDW Plt Count MPV Neutrophils % Lymphocytes % Monocytes % Eosinophils % Basophils % Sodium 136 Potassium 4.1 Chloride 105 Carbon Dioxide 24 Anion Gap 7 L BUN 19 H Creatinine 1.7 H Creat Clearance w eGFR 29.30 POC Glucometer 130 Random Glucose 130 H D Lactic Acid 0.7 Calcium 6.5 L* Total Bilirubin 0.5 D AST 25 ALT 16 D Alkaline Phosphatase 50 Total Protein 5.7 L D Albumin 2.2 L D Urine Color Urine Appearance Urine pH Ur Specific [employer] Urine Protein Urine Glucose (UA) Urine Ketones Urine Blood Urine Nitrite Urine Bilirubin Urine Urobilinogen Ur Leukocyte Esterase Urine RBC Urine WBC Urine Bacteria Urine Mucus 12/03/16 12/03/16 11:32 16:44 WBC RBC Hgb Hct MCV MCH MCHC RDW Plt Count MPV Neutrophils % Lymphocytes % Monocytes % Eosinophils % Basophils % Sodium Potassium Chloride Carbon Dioxide Anion Gap BUN Creatinine Creat Clearance w eGFR POC Glucometer 173 209 Random Glucose Lactic Acid Calcium Total Bilirubin AST ALT Alkaline Phosphatase Total Protein Albumin Urine Color Urine Appearance Urine pH Ur Specific [employer] Urine Protein Urine Glucose (UA) Urine Ketones Urine Blood Urine Nitrite Urine Bilirubin Urine Urobilinogen Ur Leukocyte Esterase Urine RBC Urine WBC Urine Bacteria Urine Mucus Active Medications Generic Name Dose Route Start Last Admin Trade Name Freq PRN Reason Stop Dose Admin Acetaminophen 650 mg 12/02/16 13:07 12/03/16 17:47 Tylenol - PO 650 mg Q6H PRN Administration FEVER OR PAIN Amlodipine Besylate 10 mg 12/01/16 10:00 12/03/16 10:15 Norvasc - PO 10 mg DAILY CINDY Administration Atorvastatin Calcium 40 mg 12/01/16 22:00 12/02/16 23:17 Lipitor - PO 40 mg HS CINDY Administration Benzocaine/Menthol 1 each 12/01/16 13:22 Cepacol Lozenge - MM PRN PRN SORE THROAT Calcium Carbonate 500 mg 12/03/16 14:00 12/03/16 14:22 Os-Husam 500mg - PO 500 mg TID CINDY Administration Heparin Sodium (Porcine) 5,000 unit 12/02/16 22:00 12/03/16 14:21 Heparin - SQ 5,000 unit TID CINDY Administration Hydromorphone HCl 1 mg 12/02/16 12:13 12/03/16 16:36 Dilaudid Injection - IVPB 1 mg Q3H PRN Administration PAIN Sodium Chloride 1,000 mls @ 100 mls/hr 12/02/16 08:15 12/03/16 14:22 Normal Saline - IV 100 mls/hr ASDIR CINDY Administration Ceftriaxone Sodium 1 gm/ 50 mls @ 100 mls/hr 12/02/16 16:15 12/03/16 10:16 Dextrose IVPB 100 mls/hr DAILY CINDY Administration Azithromycin 500 mg/ Sodium 250 mls @ 250 mls/hr 12/04/16 10:00 Chloride IVPB 12/09/16 10:59 DAILY CINDY Insulin Aspart 1 vial 12/01/16 07:00 12/03/16 17:47 Novolog Vial Sliding Scale - SQ 2 units ACHS CINDY Administration Protocol Metoprolol Succinate 100 mg 12/01/16 10:00 12/03/16 10:15 Toprol Xl - PO 100 mg DAILY CINDY Administration Nystatin 500,000 units 12/01/16 18:00 12/03/16 17:47 Nystatin Oral Suspension - PO 500,000 units Q6HPO CINDY Administration Prednisone 5 mg 12/01/16 10:00 12/03/16 10:15 Deltasone - PO 5 mg DAILY CINDY Administration Ranitidine HCl 150 mg 12/01/16 13:29 12/03/16 10:16 Zantac - PO 150 mg DAILY CINDY Administration Valsartan 80 mg 12/01/16 22:00 12/02/16 23:17 Diovan - PO 80 mg HS CINDY Administration ASSESSMENT/PLAN: 76 year old F with pmh of HTN, HLD, DM, RA, Kidney CA s/p nephrectomy in 04/2015 presenting to the ED with left knee pain admitted for distal femur fracture #Left Distal Femur Fracture -Patient requires transfer to Tertiary care center for further management. -[facility] will accept patient once there is a bed -Pain control with 1 mg dilaudid IVPB q3h prn -Hold aspirin 81 mg #Fever likely 2/2 atalectasis vs PNA -starting empiric ceftriaxone and azithromycin -CXR improved but patient still spiking fevers this PM -incentive spirometry -tylenol 625 PO Q6H for fevers -f/u urine cx, UA -f/u blood cx #anemia likely 2/2 IVF versus occult bleed -IVF decreased to 75 -FOBT done, f/u results #Diabetes Mellitus, Type 2 -BGM ACHS -ISS ACHS -Hold home medications (Januvia and Nateglinide) #HLD -Continue lipitor 40 mg po hs #HTN -Continue Toporol xl 100 mg po daily -Continue Amlodipine 10 mg po daily -Continue Diovan 80 mg po hs #Rheumatoid Arthritis -Continue Prednisone 5 mg po daily -Patient takes Cimzia 400 mg sq 1x/monthly #FEN/GI -NS @ 75 -corrected calcium 7.9 today, calcium 500 TID -diabetic diet #Ppx -DVT- Hep SQ 5Ku TID -GI- Zantac 150 mg po daily; protonix 40mg PO Dispo: pending transfer to [facility] otheropedic service. Awaiting call back from [facility] to coordinate transfer. Problem List - Problems (1) Fracture of distal end of left femur Code(s): S72.402A - UNSP FRACTURE OF LOWER END OF LEFT FEMUR, INIT FOR CLOS FX Qualifiers: Encounter type: initial encounter Fracture type: closed (2) HTN, goal below 150/90 Code(s): I10 - ESSENTIAL (PRIMARY) HYPERTENSION Visit type - Emergency Visit Emergency Visit: Yes ED Registration Date: 12/01/16 Care time: The patient presented to the Emergency Department on the above date and was hospitalized for further evaluation of their emergent condition. - New Patient This patient is new to me today: No - Critical Care Critical Care patient: No
[2016-12-03] MEDS: ATORVASTATIN CA 40 MG TABLET (FP) PO SCH (21:49)
[2016-12-03] MEDS: VALSARTAN 80 MG TABLET (UD) PO SCH (21:49)
[2016-12-04] MEDS: ACETAMINOPHEN 325 MG TABLET (FP) PO PRN (05:21)
[2016-12-04] MEDS: CALCIUM (OYSTER SHELL) 500 MG TABLET (FP) PO SCH (05:30)
[2016-12-04] MEDS: NYSTATIN 500,000 UNITS/5 ML SUSPENSION PO SCH ×2 (05:30→11:52)
[2016-12-04] MEDS: HYDROmorphone HCL CARPU-JECT 1 MG/1 ML DISP.SYRIN IVPB PRN ×2 (05:31→12:08)
[2016-12-04] MEDS: HEPARIN NA (PORCINE) 5,000 UNITS/ML 1ML VIAL SQ SCH (05:31)
[2016-12-04] MEDS: INSULIN SLIDING SCALE (NOVOLOG) 1 VIAL SQ SCH ×2 (06:13→11:56)
[2016-12-04 08:29] LABS: BASOPHIL 0.5 % (0-2.0); EOSINOPHIL 1.7 % (0-4.5); MCH 31.6 pg (25.7-33.7); MCHC 33.7 g/dl (32.0-36.0); MEAN CELL VOLUME 93.8 fl (80-96); MEAN PLT VOLUME 7.9 fl (7.5-11.1); NEUTROPHILS 73.1 % (42.8-82.8); PLATELET COUNT 167 K/MM3 (134-434); RDW 13.4 % (11.6-15.6)
[2016-12-04] MEDS ORDERED: ALBUTEROL SO4 0.083% IH SOL 2.5 MG/3 ML VIAL.NEB. NEB PRN (09:15)
[2016-12-04 09:25] LABS: ALBUMIN 1.9 g/dl (3.4-5.0); ALK PHOS 55 U/L (45-117); ANION GAP 9 (8-16); BILIRUBIN,TOTAL 0.6 mg/dL (0.2-1.0); CO2 24 mmol/L (21-32); CREATININE 1.7 mg/dL (0.55-1.02); GLUCOSE,RANDOM 103 mg/dL (74-106); SGOT/AST 22 U/L (15-37); SGPT/ALT 15 U/L (12-78); TOT PROT 5.2 g/dl (6.4-8.2)
[2016-12-04 09:43] VITALS: TEMP 98.2
[2016-12-04 09:52] VITALS: PULSE 95
[2016-12-04 09:54] LABS: CALCIUM 6.2 mg/dL (8.5-10.1)
[2016-12-04] MEDS ORDERED: CALCIUM 500MG/VIT-D 200 UNITS COMBO TABLET (FP) PO SCH (10:00)
[2016-12-04] MEDS ORDERED: AZITHROMYCIN IVPB 500 MG in SODIUM CHLORIDE 250 ML IVPB SCH (10:00)
[2016-12-04] MEDS ORDERED: cefTRIAXone SODIUM 1 GM VIAL ONE (10:57)
[2016-12-04] MEDS ORDERED: DEXTROSE 5%-WATER - 50 ML IVPB ONE (10:58)
[2016-12-04 11:01] VITALS: BP 110/56
[2016-12-04] MEDS: CEFTRIAXONE 1 GM in DEXTROSE 5%-WATER - 50 ML IVPB SCH (11:10)
[2016-12-04] MEDS: RANITIDINE HCL 150 MG TABLET (FP) PO SCH (11:11)
[2016-12-04] MEDS: predniSONE 5 MG TABLET (UD) PO SCH (11:11)
[2016-12-04] MEDS: METOPROLOL SUCCINATE 100 MG TAB.SR.24H (FP) PO SCH ×2 (11:11→11:25)
[2016-12-04] MEDS: amLODIPine BESYLATE 10 MG TABLET (FP) PO SCH (11:12)
--- NOTE | 2016-12-04 12:07 | PN ---
Physical Exam: SUBJECTIVE: Patient seen and examined. She has pain in her left knee. Cough is better. OBJECTIVE: Vital Signs Period Temp Pulse Resp BP Sys/Olson Pulse Ox Last 24 Hr 98.2 F-101.2 F 85-97 18-22 92-143/52-69 98 GENERAL: The patient is awake, alert, and fully oriented, in no acute distress. LUNGS: Few wheezes bilaterally HEART: Regular rate and rhythm, S1, S2 without murmur, rub or gallop. ABDOMEN: Obese, soft, nontender, nondistended, normoactive bowel sounds, no guarding, no rebound, no hepatosplenomegaly, no masses. EXTREMITIES: 2+ pulses, warm, well-perfused, no edema. Laboratory Results - last 24 hr 12/03/16 12/03/16 12/03/16 11:32 16:44 18:45 WBC RBC Hgb Hct MCV MCH MCHC RDW Plt Count MPV Neutrophils % Lymphocytes % Monocytes % Eosinophils % Basophils % Sodium Potassium Chloride Carbon Dioxide Anion Gap BUN Creatinine Creat Clearance w eGFR POC Glucometer 173 209 Random Glucose Calcium Total Bilirubin AST ALT Alkaline Phosphatase Total Protein Albumin Stool Occult Blood Negative 12/03/16 12/04/16 12/04/16 21:44 06:12 07:45 WBC 9.0 RBC 2.32 L Hgb 7.3 L Hct 21.7 L MCV 93.8 MCH 31.6 MCHC 33.7 RDW 13.4 Plt Count 167 MPV 7.9 Neutrophils % 73.1 Lymphocytes % 16.3 D Monocytes % 8.4 Eosinophils % 1.7 D Basophils % 0.5 Sodium Potassium Chloride Carbon Dioxide Anion Gap BUN Creatinine Creat Clearance w eGFR POC Glucometer 117 118 Random Glucose Calcium Total Bilirubin AST ALT Alkaline Phosphatase Total Protein Albumin Stool Occult Blood 12/04/16 07:45 WBC RBC Hgb Hct MCV MCH MCHC RDW Plt Count MPV Neutrophils % Lymphocytes % Monocytes % Eosinophils % Basophils % Sodium 140 Potassium 4.2 Chloride 107 Carbon Dioxide 24 Anion Gap 9 BUN 18 Creatinine 1.7 H Creat Clearance w eGFR 29.30 POC Glucometer Random Glucose 103 D Calcium 6.2 L* Total Bilirubin 0.6 AST 22 ALT 15 Alkaline Phosphatase 55 Total Protein 5.2 L Albumin 1.9 L Stool Occult Blood Active Medications Generic Name Dose Route Start Last Admin Trade Name Freq PRN Reason Stop Dose Admin Acetaminophen 650 mg 12/02/16 13:07 12/04/16 05:21 Tylenol - PO 650 mg Q6H PRN Administration FEVER OR PAIN Albuterol Sulfate 1 amp 12/04/16 09:15 12/04/16 09:44 Ventolin 0.083% Nebulizer Soln - NEB 1 amp Q6H PRN Administration SHORT OF BREATH/WHEEZING Amlodipine Besylate 10 mg 12/01/16 10:00 12/04/16 11:12 Norvasc - PO Not Given DAILY CINDY Atorvastatin Calcium 40 mg 12/01/16 22:00 12/03/16 21:49 Lipitor - PO 40 mg HS CINDY Administration Benzocaine/Menthol 1 each 12/01/16 13:22 Cepacol Lozenge - MM PRN PRN SORE THROAT Calcium Carbonate/Cholecalciferol 2 tab 12/04/16 10:00 12/04/16 11:12 Os-Husam 500+D - PO 2 tab DAILY CINDY Administration Heparin Sodium (Porcine) 5,000 unit 12/02/16 22:00 12/04/16 05:31 Heparin - SQ 5,000 unit TID CINDY Administration Hydromorphone HCl 1 mg 12/02/16 12:13 12/04/16 05:31 Dilaudid Injection - IVPB 1 mg Q3H PRN Administration PAIN Sodium Chloride 1,000 mls @ 100 mls/hr 12/02/16 08:15 12/03/16 14:22 Normal Saline - IV 100 mls/hr ASDIR CINDY Administration Ceftriaxone Sodium 1 gm/ 50 mls @ 100 mls/hr 12/02/16 16:15 12/04/16 11:10 Dextrose IVPB 100 mls/hr DAILY CINDY Administration Azithromycin 500 mg/ Sodium 250 mls @ 250 mls/hr 12/04/16 10:00 12/04/16 11:26 Chloride IVPB 12/09/16 10:59 250 mls/hr DAILY CINDY Administration Insulin Aspart 1 vial 12/01/16 07:00 12/04/16 11:56 Novolog Vial Sliding Scale - SQ Not Given ACHS [facility] Protocol Metoprolol Succinate 100 mg 12/01/16 10:00 12/04/16 11:25 Toprol Xl - PO 100 mg DAILY CINDY Administration Nystatin 500,000 units 12/01/16 18:00 12/04/16 11:52 Nystatin Oral Suspension - PO 500,000 units Q6HPO CINDY Administration Prednisone 5 mg 12/01/16 10:00 12/04/16 11:11 Deltasone - PO 5 mg DAILY CINDY Administration Ranitidine HCl 150 mg 12/01/16 13:29 12/04/16 11:11 Zantac - PO 150 mg DAILY CINDY Administration Valsartan 80 mg 12/01/16 22:00 12/03/16 21:49 Diovan - PO 80 mg HS CINDY Administration ASSESSMENT/PLAN: This is a 76 year old woman with a history of HTN, type 2 DM, hyperlipidemia, RA , kidney cancer, nephrectomy who presented to the ER with left knee pain. 1. Sepsis secondary to pneumonia - Temp 101.2 last evening, 100.7 this morning - Blood cultures negative after 24 hrs - Sputum culture pending - Continue Rocephin, Zithromax (day 3) - Start albuterol nebs as needed 2. Distal left femur fracture - Awaiting transfer to [facility] 3. Type 2 diabetes mellitus - Januvia, Starlix held - Continue Novolog sliding scale 4. Hyperlipidemia - Continue Lipitor 5. HTN - Continue Toprol XL, Diovan, Norvasc 6. Rheumatoid arthritis - Continue Prednisone - On Cimzia at home 7. Stage 4 CKD - Creatinine stable 8. History of kidney cancer, nephrectomy 9. Oral candidiasis - Continue Nystatin 10. Hypocalcemia - Corrected calcium is 7.9 - Continue oral calcium supplementation Visit type - Emergency Visit Emergency Visit: Yes ED Registration Date: 12/01/16 Care time: The patient presented to the Emergency Department on the above date and was hospitalized for further evaluation of their emergent condition. - New Patient This patient is new to me today: No - Critical Care Critical Care patient: No - Discharge Referral Referred to [facility] Med P.C.: No
--- NOTE | 2016-12-05 19:33 | DS ---
Physical Exam: SUBJECTIVE: Patient seen and examined OBJECTIVE: PHYSICAL EXAM GENERAL: The patient is awake, alert, and fully oriented, in no acute distress LUNGS: B/L mild wheezes. HEART: Regular rate and rhythm, S1, S2 without murmur, rub or gallop. ABDOMEN: Soft, obese, nontender, nondistended, normoactive bowel sounds, no guarding, no rebound, no hepatosplenomegaly, no masses. EXTREMITIES: Pain in left leg at thigh and knee. 2+ pulses, warm, well-perfused , no edema. NEUROLOGICAL: Normal speech, gait not observed. LABS HOSPITAL COURSE: Date of Admission:12/01/16 Date of Discharge: 12/05/16 76 y/o F w/PMH of HTN, HLD, DM, RA (on prednisone 5 mg po qd), kidney ca s/p nephrectomy in 04/2015 presented to ER w/L knee pain after feeling her left knee buckle as she tried to stand. Pt did not fall. Pt came to ER immediately afterwards and was found to have distal femur fracture with possible patellar fracture on LE xrays. Pt had b/l knee replacements 20 years ago and was to get them both replaced 4 years ago but did not want to undergo the surgery. Pt's XRs were seen by ortho (Dr. Alexander) who stated that she would benefit from going to tertiary care center for the surgery due to multiple acute orthopedic complications at this time including knee revision. Pt was to be transferred [facility] but hospital course was complicated when she spiked a fever of 102.1 on day 2 of admission and CXR revealed a possible RUL pna. Pt was treated with ceftriaxone and azithromycin. WBC peaked at 12 (on day 3 of admission which came down to WBC of 9 on day 4) and fevers trended down overall after abx were started. Last CXR showed no signs of infiltrates. Pt was transferred to [facility] on day 4 of admission for further orthopedic and medical management. Minutes to complete discharge: 40 Discharge Summary Reason For Visit: FRACTURE OF DISTAL END OF LEFT FEMUR Condition: Improved - Instructions Diet, Activity, Other Instructions: You are being transferred to another facility to better manage your femoral fracture. Referrals: STAFF,NOT ON [Primary Care Provider] - Disposition: TRANSFER ACUTE CARE/OTHER HOSP - Home Medications Comprehensive Discharge Medication List: Ambulatory Orders Aspirin [ASA -] 81 mg PO HS 08/09/15 Atorvastatin Ca [Lipitor] 40 mg PO HS 08/09/15 Certolizumab Pegol [Cimzia] 400 mg SQ MONTHLY 08/09/15 Metoprolol Succinate [Toprol XL -] 100 mg PO DAILY 08/09/15 Nateglinide [Starlix (Nf) -] 120 mg PO ASDIR 08/09/15 Prednisone [Deltasone -] 5 mg PO DAILY 08/09/15 Ranitidine HCl [Zantac] 150 mg PO DAILY 08/09/15 Sitagliptin Phosphate [Januvia] 100 mg PO DAILY 08/09/15 Valsartan [Diovan] 80 mg PO HS 08/09/15 Amlodipine Besylate 10 mg PO DAILY 12/01/16 This patient is new to me today: No Emergency Visit: Yes ED Registration Date: 12/01/16 Care time: The patient presented to the Emergency Department on the above date and was hospitalized for further evaluation of their emergent condition. Critical Care patient: No - Discharge Referral Referred to [facility] Med P.C.: No
== END 2016-12-04 13:29 | disposition short-term general hospital (02) | DRG 542 ==
LOC: JER 23:53 → JERBED 12-01 04:13 → J5S 12-01 08:36
PROVIDERS: ADMIT Internal Medicine; ATTEND Internal Medicine
DX: M84.452A Pathological fracture, left femur, initial encounter for fracture (principal); A41.9 Sepsis, unspecified organism; J18.9 Pneumonia, unspecified organism; N18.4 Chronic kidney disease, stage 4 (severe); J98.11 Atelectasis; B37.0 Candidal stomatitis; M84.48XA Pathological fracture, other site, initial encounter for fracture; E78.5 Hyperlipidemia, unspecified; I12.9 Hypertensive chronic kidney disease with stage 1 through stage 4 chronic kidney disease, or unspecified chronic kidney disease; E11.22 Type 2 diabetes mellitus with diabetic chronic kidney disease; M06.80 Other specified rheumatoid arthritis, unspecified site; R50.9 Fever, unspecified; E83.51 Hypocalcemia; Z85.528 Personal history of other malignant neoplasm of kidney; Z90.5 Acquired absence of kidney; Z96.653 Presence of artificial knee joint, bilateral; Z90.710 Acquired absence of both cervix and uterus; W18.39XA Other fall on same level, initial encounter; Y92.098 Other place in other non-institutional residence as the place of occurrence of the external cause; Z79.52 Long term (current) use of systemic steroids
CPT/HCPCS: 36415; 71010-TC; 73552-TC-LT; 73562-TC-LT; 73590-TC-LT; 80048; 80053; 81003; 81015; 82040; 82272; 83605; 85025; 85027; 85610; 85651; 85730; 86140; 86850; 86900; 86901; 87040; 87070; 87086; 87205; 93005; 93010; 94010; 94640; 99285-25; J1644

== ENCOUNTER 2017-09-16 21:11 | Inpatient (IN) | payer BC, OTHER ==
[2017-09-16 21:41] VITALS: BMI 31.7
[2017-09-16] MEDS ORDERED: DIPHTH,PERTUSS(ACELL),TET 0.5 ML DISP.SYRIN IM ONE (22:30)
--- NOTE | 2017-09-16 22:44 | PDOC ---
History of Present Illness - History of Present Illness Initial Comments: 09/16/17 22:27 76 year old F with pmh of HTN, HLD, DM, RA, Kidney CA s/p nephrectomy in 04/2015 who p/w left sided lateral leg wound. Patient reports hitting her right leg on the corner of a table two weeks ago, with a resultant left leg abrasion and minimal blood loss. Wound, has progressively progressed in size, and become darker, and fluid filled. Daughter reports clear, blood tinged drainage at home today, which prompted ED visit. Nml ambulation with cane, and denies LOC, head/ neck/back trauma. Daughter reports daily at home dressing changes, and topical bacitracin with no improvmenet in symptoms. Has not received medical evaluation for wound. Denies F/C, N/V, CP, SOB, abdominal pain, diarrhea, constipation, urinary complaints, weakness, lightheadedness, sensory changes. PMHx: as noted above ROS: as noted above SHx: Denies tobacco, IVDA. Social Etoh. Does not recall last tetanus, Allergies: NKDA <Caesar Mack - Last Filed: 09/17/17 00:44> <Noemi Oconnor - Last Filed: 09/17/17 01:12> - General Chief Complaint: Wound Stated Complaint: LEG WOUND Time Seen by Provider: 09/16/17 21:39 Past History - Past Medical History Anemia: Yes Asthma: No Cancer: Yes (L KIDNEY) Cardiac Disorders: No CVA: No COPD: No CHF: No Dementia: No Diabetes: Yes GI Disorders: Yes (gerd) Disorders: Yes (h/o fibroids) HTN: Yes Hypercholesterolemia: Yes Liver Disease: No Seizures: No Thyroid Disease: No - Surgical History Abdominal Surgery: Yes (L NEPHRECTOMY) Orthopedic Surgery: Yes (b/l knee replacement 1992) - Suicide/Smoking/Psychosocial Hx Smoking History: Never smoked Have you smoked in the past 12 months: No If you are a former smoker, when did you quit?: 0 Information on smoking cessation initiated: No Hx Alcohol Use: No Drug/Substance Use Hx: No Substance Use Type: None Hx Substance Use Treatment: No <Caesar Mack - Last Filed: 09/17/17 00:44> <Noemi Oconnor - Last Filed: 06/16/18 01:12> - Past Medical History Allergies/Adverse Reactions: Allergies Allergy/AdvReac Type Severity Reaction Status Date / Time lisinopril [From Prinivil] Allergy Vomiting Verified 09/16/17 21:26 meperidine HCl [From Demerol] Allergy Vomiting Verified 09/16/17 21:26 Home Medications: Ambulatory Orders Aspirin [ASA -] 81 mg PO HS 08/09/15 Atorvastatin Ca [Lipitor] 40 mg PO HS 08/09/15 Certolizumab Pegol [Cimzia] 400 mg SQ MONTHLY 08/09/15 Metoprolol Succinate [Toprol XL -] 100 mg PO DAILY 08/09/15 Nateglinide [Starlix (Nf) -] 120 mg PO ASDIR 08/09/15 Ranitidine HCl [Zantac] 150 mg PO DAILY 08/09/15 Sitagliptin Phosphate [Januvia] 100 mg PO DAILY 08/09/15 Valsartan [Diovan] 80 mg PO HS 08/09/15 predniSONE [Deltasone -] 5 mg PO DAILY 08/09/15 Amlodipine Besylate 10 mg PO DAILY 12/01/16 Review of Systems - Review of Systems Comments:: 09/16/17 22:43 GENERAL/CONSTITUTIONAL: No fever or chills. No weakness. HEAD, EYES, EARS, NOSE AND THROAT: No change in vision. No ear pain or discharge. No sore throat. CARDIOVASCULAR: No chest pain or shortness of breath RESPIRATORY: No cough, wheezing, or hemoptysis. GASTROINTESTINAL: No nausea, vomiting, diarrhea or constipation. GENITOURINARY: No dysuria, frequency, or change in urination. MUSCULOSKELETAL: No joint or muscle swelling or pain. No neck or back pain. SKIN: + Right leg wound . NEUROLOGIC: No headache, vertigo, loss of consciousness, or change in strength/ sensation. ENDOCRINE: No increased thirst. No abnormal weight change HEMATOLOGIC/LYMPHATIC: No anemia, easy bleeding, or history of blood clots. ALLERGIC/IMMUNOLOGIC: No hives or skin allergy. <Caesar Mack - Last Filed: 09/17/17 00:44> *Physical Exam - Vital Signs Last Vital Signs Temp Pulse Resp BP Pulse Ox 98.3 F 87 19 109/78 98 09/16/17 21:21 09/16/17 21:21 09/16/17 21:21 09/16/17 21:21 09/16/17 21:21 - Physical Exam Comments: 09/16/17 22:44 GENERAL: Awake, alert, and fully oriented, in no acute distress HEAD: No signs of trauma, normocephalic, atraumatic EYES: PERRLA, EOMI, sclera anicteric, conjunctiva clear ENT: Auricles normal inspection, hearing grossly normal, nares patent, oropharynx clear without exudates. Moist mucosa NECK: Normal ROM, supple, no lymphadenopathy, JVD, or masses LUNGS: No distress, speaks full sentences, clear to auscultation bilaterally HEART: Regular rate and rhythm, normal S1 and S2, no murmurs, rubs or gallops, peripheral pulses normal and equal bilaterally. ABDOMEN: Soft, nontender, normoactive bowel sounds. No guarding, no rebound. No masses EXTREMITIES/RLE : Normal inspection, Normal range of motion, no edema. No clubbing or cyanosis. LLE: Lateral R leg, 10 x 12 cm area of black eschar/unstagable wound/ulcer , with erythematous ulcer bed at margins and area of ulceration deep to eschar. Absent drainage or discharge. DP and PT pulses intact and symmetric. Absent drainage or discharge. SKIN: Warm, Dry, normal turgor, no rashes or lesions noted <Caesar Mack - Last Filed: 09/17/17 00:44> - Vital Signs Last Vital Signs Temp Pulse Resp BP Pulse Ox 98.3 F 87 19 109/78 98 09/16/17 21:21 09/16/17 21:21 09/16/17 21:21 09/16/17 21:21 09/16/17 21:21 <Noemi Oconnor - Last Filed: 09/17/17 01:12> Procedures - Laceration/Wound Repair Left Lateral Leg Wound's Depth, Shape: superficial, linear (Partial washout to evaluate for depth , and intact fascia and soft muscle compartment visualzied. wound packed and left open per surgery reccomendation. ) <Caesar Mack - Last Filed: 09/17/17 00:44> Heart Score/ECG Review - ECG Intrepretation Rhythm: PVC(s) - [place]: Left [place] Deviation - ECG Impressions Ischemic Changes: No <Noemi Oconnor - Last Filed: 09/17/17 01:12> ED Treatment Course - LABORATORY CBC & Chemistry Diagram: 09/16/17 23:07 09/16/17 23:59 <Caesar Mack - Last Filed: 09/17/17 00:44> - LABORATORY CBC & Chemistry Diagram: 09/16/17 23:07 09/16/17 23:59 - ADDITIONAL ORDERS Additional order review: Laboratory Results 09/16/17 09/16/17 09/16/17 23:59 23:41 23:37 PT with INR 12.10 INR 1.07 Sodium 138 Cancelled Potassium 4.9 Cancelled Chloride 103 Cancelled Carbon Dioxide 30 Cancelled Anion Gap 5 L Cancelled BUN 34 H Cancelled Creatinine 1.9 H Cancelled Creat Clearance w eGFR 25.70 Cancelled Random Glucose 75 Cancelled Calcium 8.7 Cancelled Total Bilirubin 0.2 D Cancelled AST 22 Cancelled ALT 17 Cancelled Alkaline Phosphatase 47 Cancelled Total Protein 7.5 Cancelled Albumin 3.0 L Cancelled 09/16/17 23:07 PT with INR INR Sodium Cancelled Potassium Cancelled Chloride Cancelled Carbon Dioxide Cancelled Anion Gap Cancelled BUN Cancelled Creatinine Cancelled Creat Clearance w eGFR Cancelled Random Glucose Cancelled Calcium Cancelled Total Bilirubin Cancelled AST Cancelled ALT Cancelled Alkaline Phosphatase Cancelled Total Protein Cancelled Albumin Cancelled 09/16/17 23:07 RBC 2.85 L D MCV 94.5 MCHC 33.9 RDW 15.5 D MPV 7.5 Neutrophils % 67.8 Lymphocytes % 19.0 Monocytes % 11.4 H Eosinophils % 1.1 Basophils % 0.7 - Medications Given in the ED: ED Medications Discontinued Medications Generic Name Dose Route Start Last Admin Trade Name Freq PRN Reason Stop Dose Admin Diphtheria/Tetanus/Acell Pertussis 0.5 ml 09/16/17 22:30 09/16/17 23:16 Boostrix - IM 09/16/17 22:31 0.5 ml .ONCE ONE Administration Piperacillin Sod/Tazobactam 100 mls @ 200 mls/hr 09/16/17 23:45 09/17/17 00: 06 Sod 4.5 gm/ Dextrose IVPB 09/17/17 00:14 200 mls/hr ONCE ONE Administration Protocol <Noemi Oconnor - Last Filed: 09/17/17 01:12> Medical Decision Making - Medical Decision Making 09/16/17 22:53 76 year old F with pmh of HTN, HLD, DM, RA, Kidney CA s/p nephrectomy in 04/2015 who p/w right sided lateral leg wound. VSS, AF. RLE neurovasculalry intact. Physical exam notable for lateral R leg, 10 x 12 cm area of black eschar/ unestagable wound vs. ulcer , with erythematous margins and area of laceration deep to eschar. Patient with 0/4 SIRS criteria, absent systemic s/s of disseminated infection, or evidence of end organ dysfunction. Patient likely with poor wound healing response d/t underlying DM. Suspected large hematoma, with deep tissue involvement. ED Course: CBC, CMP Tdap RLE RAD 09/16/17 23:26 Dr. Reyes Mckeon Per Dr. Mckeon surgery online producer if bone exposed consult ortho. Scoop out all blood clot. Patient for possible wound vac. packing it with saline damped gauze, and Curlex wrap. Elevate leg. Hold ASA 81 mg. Check her sugar. Dr. Mckeon to see patient in AM. 09/16/17 23:46 Vanc, Zosyn started 09/17/17 00:46 BUN/Cr: 34/1.9 Wound debrided, and partial washout performed with intact fascia. Packed with sterile saline damped gauze, and xeroform placed on skin with gauze and curlex dressing. Patient signed out to night team. Imaging pending. Plan to admit to med/surg. <Caesar Mack - Last Filed: 09/17/17 00:44> *DC/Admit/Observation/Transfer <Caesar Mack - Last Filed: 09/17/17 00:44> - Discharge Dispostion Decision to Admit order: Yes <Noemi Oconnor - Last Filed: 09/17/17 01:12> Diagnosis at time of Disposition: Wound of skin - Discharge Dispostion Condition at time of disposition: Fair
[2017-09-16 23:20] LABS: BASO % 0.7 % (0-2.0); EOS % 1.1 % (0-4.5); HEMOGLOBIN 9.2 GM/dL (10.7-15.3); MCH 32.1 pg (25.7-33.7); MCHC 33.9 g/dl (32.0-36.0); MEAN CELL VOLUME 94.5 fl (80-96); MEAN PLT VOLUME 7.5 fl (7.5-11.1); MONO % 11.4 % (3.8-10.2); NEUT % 67.8 % (42.8-82.8); PLATELET COUNT 419 K/MM3 (134-434); RBC 2.85 M/mm3 (3.60-5.2); RDW 15.5 % (11.6-15.6); WHITE BLOOD COUNT 8.1 K/mm3 (4.0-10.0)
[2017-09-16] MEDS ORDERED: VANCOMYCIN 1,000 MG in DEXTROSE 5%-WATER - 250 ML IVPB ONE (23:45)
[2017-09-16] MEDS ORDERED: PIPERACILLIN/TAZOB 4.5 GM 4.5 GM in DEXTROSE 5%-WATER 100 ML IVPB ONE (23:45)
[2017-09-16 23:59] LABS: INR 1.07 (0.82-1.09); PROTHROMBIN TIME (PATIENT) 12.1 SEC (9.7-13.0)
[2017-09-17] MEDS ORDERED: PIPERACILLIN/TAZOB 4.5 GM 4.5 GM/100 ML BAG IVPB ONE (00:07)
[2017-09-17] MEDS ORDERED: BACITRACIN 0.9 GM PACKET ONE (00:21)
[2017-09-17 00:28] LABS: ALK PHOS 47 U/L (45-117); ANION GAP 5 (8-16); BILIRUBIN,TOTAL 0.2 mg/dL (0.2-1.0); BLOOD UREA NITROGEN 34 mg/dL (7-18); CALCIUM 8.7 mg/dL (8.5-10.1); CHLORIDE 103 mmol/L (98-107); CO2 30 mmol/L (21-32); CREATININE 1.9 mg/dL (0.55-1.02); GLUCOSE,RANDOM 75 mg/dL (74-106); POTASSIUM 4.9 mmol/L (3.5-5.1); SGOT/AST 22 U/L (15-37); SGPT/ALT 17 U/L (12-78); SODIUM 138 mmol/L (136-145); TOT PROT 7.5 g/dl (6.4-8.2)
--- NOTE | 2017-09-17 00:28 | PDOC ---
Attending Attestation - Resident Resident Name: Caesar Mack - ED Attending Attestation I have performed the following: I have examined & evaluated the patient, The case was reviewed & discussed with the resident, I agree w/resident's findings & plan, Exceptions are as noted - Medical Decision Making 09/17/17 00:25 77yoF hx of DM, RA on steroids presetns w/ RLE wound x 2 weeks. Has very large hematoma to R mathew wiithout e/o compartment syndrome. + large tear in tissue w/ large collection of clots underneath, washout left most clots in place and revealed apparently intact muscle fascia, muscle compartments soft. - d/w surgery, will admit for wound management by surgery - labs - xrays - ct leg - vanco/zosyn - wet-to-dry dressing as directed by surgery - admit. <Noemi Oconnor - Last Filed: 09/17/17 00:25> - HPI HPI: 09/17/17 00:31 The patient is a 76 year old female with a significant PMH of hypertension, hyperlipidemia, DM, rheumatoid arthritis, and kidney ca who presents to the emergency department with left sided lateral leg wound. The patient reports hitting her right leg on the corner of a table two weeks ago, with a resultant left leg abrasion and minimal blood loss. She states that her wound has since progressed in size and has become darker and filled with fluid. That patients daughter reports that the patient has been consistent with at home dressing ahange and topical cream with no improvement of wound site. The patient denies any other symptoms. She denies any chest pain, shortness of breath, headache and dizziness.She denies any fever, chills, nausea, vomit, diarrhea, constipation or urinary symptoms. The patient denies any other complaints. - Physicial Exam PE: 09/17/17 00:31 as per resident note. Documentation prepared by Merle Lieberman, acting as nurses medical assistants phlebotomists for Noemi Oconnor MD. <Merle Lieberman - Last Filed: 09/17/17 00:32>
[2017-09-17] MEDS ORDERED: LACTATED RINGERS SOLUTION 1,000 ML IV SCH (01:45)
[2017-09-17] MEDS ORDERED: VANCOMYCIN 1 GRAM (PRE-DOCKED) 1,000 MG/250 ML BAG IVPB ONE (02:08)
--- NOTE | 2017-09-17 02:58 | HP ---
CHIEF COMPLAINT:" I have a leg wound" PCP: none HISTORY OF PRESENT ILLNESS: This is a 76 year old F with pmh of HTN, HLD, DM, RA, Kidney CA s/p nephrectomy in 04/2015 who presents with RLE wound. Patient hit RLE on furniture 2 w ago and the anterior mathew wound never healed and progressively became indurated and necrotic. She denies pain at the wound site but does report occasional chills w/ o fever. She has never had a soft tissue infection before. She denies cp, abd pain, n/v, sob, cough, h/a. Daughter at bedside ER course was notable for: (1) labs (2)RLE ct, [place] (3)grisel ruiz Recent Travel:denies PAST MEDICAL HISTORY: as above PAST SURGICAL HISTORY: as above Social History: lives with daughter Smoking: denies Alcohol:denies Drugs: denies Family History: noncontributory Allergies lisinopril [From Prinivil] Allergy (Verified 09/16/17 21:26) Vomiting meperidine HCl [From Demerol] Allergy (Verified 09/16/17 21:26) Vomiting morphine Allergy (Severe, Uncoded 09/17/17 02:53) HOME MEDICATIONS: Home Medications Medication Instructions Recorded Aspirin [ASA -] 81 mg PO HS 08/09/15 Atorvastatin Ca [Lipitor] 40 mg PO HS 08/09/15 Certolizumab Pegol [Cimzia] 400 mg SQ MONTHLY 08/09/15 Metoprolol Succinate [Toprol XL -] 100 mg PO DAILY 08/09/15 Nateglinide [Starlix (Nf) -] 120 mg PO ASDIR 08/09/15 Ranitidine HCl [Zantac] 150 mg PO DAILY 08/09/15 Sitagliptin Phosphate [Januvia] 100 mg PO DAILY 08/09/15 Valsartan [Diovan] 80 mg PO HS 08/09/15 predniSONE [Deltasone -] 5 mg PO DAILY 08/09/15 Amlodipine Besylate 10 mg PO DAILY 12/01/16 REVIEW OF SYSTEMS CONSTITUTIONAL: Absent: fever, chills, diaphoresis, generalized weakness HEENT: Absent: rhinorrhea, nasal congestion, throat pain CARDIOVASCULAR: Absent: chest pain, syncope, palpitations RESPIRATORY: Absent: cough, shortness of breath GASTROINTESTINAL: Absent: abdominal pain, abdominal distension, nausea, vomiting, diarrhea GENITOURINARY: Absent: dysuria MUSCULOSKELETAL: Absent: back pain, neck pain SKIN: Absent: rash, itching, pallor HEMATOLOGIC/IMMUNOLOGIC: Absent: easy bleeding, easy bruising ENDOCRINE: Absent: unexplained weight gain, unexplained weight loss NEUROLOGIC: Absent: headache, focal weakness or paresthesias PSYCHIATRIC: Absent: anxiety, depression PHYSICAL EXAMINATION Vital Signs - 24 hr 09/16/17 21:21 Temperature 98.3 F Pulse Rate 87 Respiratory 19 Rate Blood Pressure 109/78 O2 Sat by Pulse 98 Oximetry (%) GENERAL: Awake, alert, and fully oriented, in no acute distress. HEAD: Normal with no signs of trauma. EYES: Pupils equal, round and reactive to light, extraocular movements intact, sclera anicteric, conjunctiva clear. EARS, NOSE, THROAT: Moist mucous membranes. NECK: supple LUNGS: Breath sounds equal, clear to auscultation bilaterally. HEART: Regular rate and rhythm, normal S1 and S2 ABDOMEN: Soft, nontender, not distended, normoactive bowel sounds, no guarding, no rebound, no masses. MUSCULOSKELETAL: No CVA tenderness. UPPER EXTREMITIES: 2+ pulses, warm, well-perfused. No peripheral edema. LOWER EXTREMITIES: 2+ pulses, warm, well-perfused. No calf tenderness. RLE anterior mathew lecrotic indurated wound with packing. No ingional adenopathy NEUROLOGICAL: Cranial nerves II-XII grossly intact. Normal speech. PSYCHIATRIC: Cooperative. Good eye contact. Appropriate mood and affect. SKIN: Warm, dry Laboratory Results - last 24 hr 09/16/17 09/16/17 09/16/17 23:07 23:07 23:18 WBC 8.1 RBC 2.85 L D Hgb 9.2 L D Hct 27.0 L D MCV 94.5 MCH 32.1 MCHC 33.9 RDW 15.5 D Plt Count 419 D MPV 7.5 Absolute Neuts (auto) 5.5 Neutrophils % 67.8 Lymphocytes % 19.0 Monocytes % 11.4 H Eosinophils % 1.1 Basophils % 0.7 Nucleated RBC % 0 ESR 114 H PT with INR INR Sodium Cancelled Potassium Cancelled Chloride Cancelled Carbon Dioxide Cancelled Anion Gap Cancelled BUN Cancelled Creatinine Cancelled Creat Clearance w eGFR Cancelled Random Glucose Cancelled Calcium Cancelled Total Bilirubin Cancelled AST Cancelled ALT Cancelled Alkaline Phosphatase Cancelled Total Protein Cancelled Albumin Cancelled 09/16/17 09/16/17 09/16/17 23:37 23:41 23:59 WBC RBC Hgb Hct MCV MCH MCHC RDW Plt Count MPV Absolute Neuts (auto) Neutrophils % Lymphocytes % Monocytes % Eosinophils % Basophils % Nucleated RBC % ESR PT with INR 12.10 INR 1.07 Sodium Cancelled 138 Potassium Cancelled 4.9 Chloride Cancelled 103 Carbon Dioxide Cancelled 30 Anion Gap Cancelled 5 L BUN Cancelled 34 H Creatinine Cancelled 1.9 H Creat Clearance w eGFR Cancelled 25.70 Random Glucose Cancelled 75 Calcium Cancelled 8.7 Total Bilirubin Cancelled 0.2 D AST Cancelled 22 ALT Cancelled 17 Alkaline Phosphatase Cancelled 47 Total Protein Cancelled 7.5 Albumin Cancelled 3.0 L ASSESSMENT/PLAN: This is a 76 year old F with pmh of HTN, HLD, DM, RA, Kidney CA s/p nephrectomy in 04/2015 who presents with RLE wound. RLE mathew necrotic wound in immunocompromised patient -hold asa for Morning OR debridement with Dr Mckeon -given vanc, zosyn in ed, next zosyn dose 2.5 renally adjusted. Does need pseudomonas but may not need MRSA coverage -ID, Gen surg consults RA -continue prednisone 5 d -tylenol PRN for pain -patient is on monthly certolizumab HTN -norvasc 10d, toprol xl 100 d, diovan 80 d HLD -lipitpr 40 HS NIDDM -ISS, BGM s/p nephrectomy -creat 1.9 from last known 1.7, GFR 25 from 27 -may be slightly elevated due to infection vs RA treatment (although certolizumab not considered nephrotoxoc) -will trend, gently IVF hydration FEN LR @ 75 (better outcomes for renal patients with balanced crystalloid (SALT-ED trial) lytes stable (watch Cl levels) NPO adm m/s Problem List - Problem (1) HTN (hypertension) Code(s): I10 - ESSENTIAL (PRIMARY) HYPERTENSION (2) HLD (hyperlipidemia) Code(s): E78.5 - HYPERLIPIDEMIA, UNSPECIFIED (3) Rheumatoid arthritis Code(s): M06.9 - RHEUMATOID ARTHRITIS, UNSPECIFIED (4) NIDDY (non-insulin dependent diabetes mellitus in young) Code(s): E13.9 - OTHER SPECIFIED DIABETES MELLITUS WITHOUT COMPLICATIONS (5) Wound of skin Code(s): R23.8 - OTHER SKIN CHANGES Visit type - Emergency Visit Emergency Visit: Yes ED Registration Date: 09/17/17 Care time: The patient presented to the Emergency Department on the above date and was hospitalized for further evaluation of their emergent condition. - New Patient This patient is new to me today: Yes Date on this admission: 09/17/17 - Critical Care Critical Care patient: No
[2017-09-17] MEDS: ACETAMINOPHEN 325 MG TABLET (FP) PO PRN ×3 (03:20→17:10)
[2017-09-17] MEDS ORDERED: PIPERACILLIN/TAZOB 2.25 GM 2.25 GM in DEXTROSE 5%-WATER - 50 ML IVPB ONE (06:00)
[2017-09-17] MEDS ORDERED: DEXTROSE 5%-WATER - 50 ML IVPB ONE ×4 (06:05→21:06)
[2017-09-17] MEDS ORDERED: PIPERACILLIN/TAZOBACTAM 2.25 GM VIAL IVPB ONE (06:05)
[2017-09-17] MEDS ORDERED: ACETAMINOPHEN 1000 MG/100 ML VIAL (NON FORMULARY) IVPB ONE (06:15)
[2017-09-17] MEDS: INSULIN SLIDING SCALE (NOVOLOG) 1 VIAL SQ SCH ×3 (06:19→17:33)
--- NOTE | 2017-09-17 06:40 | PN ---
Teaching Attending Note Name of Resident: Gabrielle Angel ATTENDING PHYSICIAN STATEMENT I saw and evaluated the patient. I reviewed the resident's note and discussed the case with the resident. I agree with the resident's findings and plan as documented. SUBJECTIVE: 76F with DM2, RA, s/p nephrectomy for Renal Ca, chrnic steroid user p/w draining Rt lower leg wound OBJECTIVE: RLE: large area necrotic wound with packing. ASSESSMENT AND PLAN: Right Lower leg necrotic wound Surgical eval for debridement continue antibiotics ID eval RA continue steroids
[2017-09-17 07:37] LABS: BASO % 0.3 % (0-2.0); EOS % 1.2 % (0-4.5); HEMATOCRIT 22.8 % (32.4-45.2); HEMOGLOBIN 7.7 GM/dL (10.7-15.3); MCH 32.1 pg (25.7-33.7); MCHC 33.7 g/dl (32.0-36.0); MEAN PLT VOLUME 7.1 fl (7.5-11.1); MONO % 9.4 % (3.8-10.2); NEUT % 69.1 % (42.8-82.8); PLATELET COUNT 301 K/MM3 (134-434); RDW 15.4 % (11.6-15.6); WHITE BLOOD COUNT 9.2 K/mm3 (4.0-10.0)
[2017-09-17 07:51] LABS: INR 1.1 (0.82-1.09); PROTHROMBIN TIME (PATIENT) 12.4 SEC (9.7-13.0)
[2017-09-17 08:06] LABS: ALBUMIN 2.6 g/dl (3.4-5.0); ANION GAP 4 (8-16); BLOOD UREA NITROGEN 30 mg/dL (7-18); CALCIUM 8.4 mg/dL (8.5-10.1); CHLORIDE 102 mmol/L (98-107); CO2 31 mmol/L (21-32); GLUCOSE,RANDOM 91 mg/dL (74-106); MAGNESIUM 2.1 mg/dL (1.8-2.4); POTASSIUM 4.1 mmol/L (3.5-5.1); SODIUM 137 mmol/L (136-145)
[2017-09-17 08:09] LABS: ALK PHOS 39 U/L (45-117); BILIRUBIN,TOTAL 0.3 mg/dL (0.2-1.0); CREATININE 1.9 mg/dL (0.55-1.02); PHOSPHOROUS 3.2 mg/dL (2.5-4.9); SGOT/AST 15 U/L (15-37); SGPT/ALT 14 U/L (12-78); TOT PROT 6.7 g/dl (6.4-8.2)
[2017-09-17] MEDS ORDERED: PT OWN MED DRAWER 7, Y5N ONE (10:43)
[2017-09-17] MEDS: RANITIDINE HCL 150 MG TABLET (FP) PO SCH (10:52)
[2017-09-17] MEDS: predniSONE 5 MG TABLET (UD) PO SCH (10:53)
[2017-09-17] MEDS: amLODIPine BESYLATE 10 MG TABLET (FP) PO SCH (10:53)
--- NOTE | 2017-09-17 12:37 | CONSULT ---
Consult Consult Specialty:: General Surgery Referred by:: Caesar Mack Reason for Consultation:: right leg wound/hematoma - History of Present Illness Chief Complaint: right lateral leg wound with bloody drainage History of Present Illness: 77yo F with HTN, HLD, DM2, GERD, RA on chronic steroids and biologic, s/p hysterectomy, L nephrectomy for cancer, bilateral knee replacements with bilateral redo's, was admitted last night through ER after presenting with a large right lateral lower leg wound with some bloody drainage. Two weeks ago today, she had an argument with daughter at home and accidentally kicked the corner of a wooden table, sustaining a small wound to her right lateral lower leg. It did not bleed much, per pt, and she did not seek medical attention. She was able to continue walking on it (with her walker), and over the last 2 weeks has treated it with cold packs, elevation, bacitracin and neosporin ointments and kept it clean. This last week, she noted some intermittent chills but no fevers. The wound kept getting bigger and darker, and this last week, started having some bloody drainage from the edge. Her daughter brought her to ER, where she was afebrile, with normal wbc and glucose. XR showed old, healed fracture of distal fibula with callus present (per brief discussion with ortho, could not be as recent as 2 weeks), negative DVT, and CT shows presence of extensive hematoma in subcutaneous tissues. ER evacuated a small amount of clot from the anterior edge and packed with some saline-damp gauze, covered with ABD and Kerlix. She has been given tetanus shot and antibiotics. Surgery is asked to evaluate for wound management. It does not hurt much. She is seen and examined in her bed with daughter at bedside. - History Source History Provided By: Patient Limitations to Obtaining History: No Limitations - Past Medical History Cardio/Vascular: Yes: HTN, Hyperlipdemia Gastrointestinal: Yes: GERD Renal/: Yes: Renal Inusuff, Cancer (left kidney s/p nephrectomy 04/19) Reproductive: Yes: Fibroids Heme/Onc: Yes: Anemia Musculoskeletal: Yes: Osteoarthritis Rheumatology: Yes: Rheumatoid Arthritis ENT: Yes: Other (tinnitus and hearing loss R ear) Endocrine: Yes: Diabetes Mellitus - Past Surgical History Past Surgical History: Yes: Hysterectomy, Joint Replacement (bilateral knees and bilateral redo replacements), Nephrectomy (left for cancer) Additional Surgical History: lipoma off back - Alcohol/Substance Use Hx Alcohol Use: Yes (wine occasionally) History of Substance Use: reports: None - Smoking History Smoking history: Never smoked Have you smoked in the past 12 months: No - Social History Usual Living Arrangement: With Child Home Medications - Allergies Allergies/Adverse Reactions: Allergies Allergy/AdvReac Type Severity Reaction Status Date / Time lisinopril [From Prinivil] Allergy Vomiting Verified 09/16/17 21:26 meperidine HCl [From Demerol] Allergy Vomiting Verified 09/16/17 21:26 morphine Allergy Severe Uncoded 09/17/17 02:53 - Home Medications Home Medications: Ambulatory Orders Aspirin [ASA -] 81 mg PO HS 08/09/15 Atorvastatin Ca [Lipitor] 40 mg PO HS 08/09/15 Certolizumab Pegol [Cimzia] 400 mg SQ MONTHLY 08/09/15 Metoprolol Succinate [Toprol XL -] 100 mg PO DAILY 08/09/15 Nateglinide [Starlix (Nf) -] 120 mg PO ASDIR 08/09/15 Ranitidine HCl [Zantac] 150 mg PO DAILY 08/09/15 Sitagliptin Phosphate [Januvia] 100 mg PO DAILY 08/09/15 Valsartan [Diovan] 80 mg PO HS 08/09/15 predniSONE [Deltasone -] 5 mg PO DAILY 08/09/15 Amlodipine Besylate 10 mg PO DAILY 12/01/16 Family Disease History - Family Disease History Family History: Unremarkable (noncontributory) Review of Systems - Review of Systems Constitutional: reports: Chills. denies: Fever Eyes: reports: Other (uses reading glasses). denies: Recent Change in Vision HENT: reports: Hearing Loss (right side), Ringing in Ears (right side). denies : Difficult Swallowing, Throat Pain Neck: denies: Swollen Glands, Tenderness Cardiovascular: denies: Chest Pain, Palpitations Respiratory: denies: Cough, SOB Gastrointestinal: denies: Abdominal Pain, Constipation, Diarrhea, Nausea, Vomiting Genitourinary: denies: Burning, Dysuria Musculoskeletal: reports: Extremity Pain (right leg with hpi, some), Other ( uses walker for ambulation). denies: Back Pain, Joint Pain Integumentary: reports: Change in Color (right leg, blackened skin), Wound ( right lower leg) Neurological: denies: Dizziness, Headache Physical Exam Vital Signs: Vital Signs Temperature 98.7 F 09/17/17 09:00 Pulse Rate 75 09/17/17 09:00 Respiratory Rate 16 09/17/17 09:00 Blood Pressure 132/66 09/17/17 09:00 O2 Sat by Pulse Oximetry (%) 95 09/17/17 00:57 Constitutional: Yes: No Distress, Calm, Obese Eyes: Yes: Conjunctiva Clear, EOM Intact HENT: Yes: Atraumatic, Normocephalic Neck: Yes: Supple, Trachea Midline Cardiovascular: Yes: Regular Rate and Rhythm. No: Murmur Respiratory: Yes: Regular, CTA Bilaterally Gastrointestinal: Yes: Normal Bowel Sounds, Soft, Abdomen, Obese, Other (healed lower midline and left paramedian scars). No: Tenderness ...Rectal Exam: Yes: Deferred Renal/: No: CVA Tenderness - Left, CVA Tenderness - Right Musculoskeletal: No: Joint Stiffness, Joint Swelling Extremities: Yes: Other (well-healed bilateral knee scars; tender over upper fibula only, not tibia, not really at/around wound except for superior aspect). No: Cool, Cyanosis Edema: Yes Edema: LLE: 1+, RLE: 1+ Peripheral Pulses WNL: Yes Integumentary: Yes: Other (right lateral lower leg with large area of black, leathery eschar overlying hematoma, open a little at anteromedial edge with gauze packing; superior aspect with some reddened/raw, abraded skin, also overlying hematoma/clot extending superiorly under this area). No: Rash Wound/Incision: Yes: Dressing Dry and Intact, Dressing Removed (seen with Dr. Altamirano of ID), Unapproximated, Other (eschar removed with scissors ( selective debridement) and underlying clot mostly evacuated down to clean- appearing wound base, red tissue without active bleeding, open defect measures ~ 16 x 13 x 2cm, elliptical, no purulence or s/s infection; some clot remains under superior tissues and possibly along edges laterally and inferiorly - packed with saline-damp Kerlix, covered with ABD and Kerlix wrap to hold) Neurological: Yes: Alert, Oriented Psychiatric: Yes: Alert, Oriented Labs: CBC, BMP 09/17/17 06:15 09/17/17 06:15 CMP Sodium 137 mmol/L (136-145) 09/17/17 06:15 Potassium 4.1 mmol/L (3.5-5.1) 09/17/17 06:15 Chloride 102 mmol/L (98-107) 09/17/17 06:15 Carbon Dioxide 31 mmol/L (21-32) 09/17/17 06:15 Anion Gap 4 (8-16) L 09/17/17 06:15 BUN 30 mg/dL (7-18) H 09/17/17 06:15 Creatinine 1.9 mg/dL (0.55-1.02) H 09/17/17 06:15 Creat Clearance w eGFR 25.70 (>60) 09/17/17 06:15 POC Glucometer 109 UNITS (80-120) 09/17/17 11:48 Random Glucose 91 mg/dL (74-106) 09/17/17 06:15 Calcium 8.4 mg/dL (8.5-10.1) L 09/17/17 06:15 Phosphorus 3.2 mg/dL (2.5-4.9) 09/17/17 06:15 Magnesium 2.1 mg/dL (1.8-2.4) 09/17/17 06:15 Total Bilirubin 0.3 mg/dL (0.2-1.0) D 09/17/17 06:15 AST 15 U/L (15-37) 09/17/17 06:15 ALT 14 U/L (12-78) 09/17/17 06:15 Alkaline Phosphatase 39 U/L (45-117) L 09/17/17 06:15 Total Protein 6.7 g/dl (6.4-8.2) 09/17/17 06:15 Albumin 2.6 g/dl (3.4-5.0) L 09/17/17 06:15 INR, PTT INR 1.10 (0.82-1.09) 09/17/17 06:15 Imaging - Results X-ray: Report Reviewed, Image Reviewed (images personally reviewed - large soft tissue injury right lateral calf with underlying healed fibular fracture ( callus present - per ortho, could not be 2 wks old)) Cat Scan: Image Reviewed (images personally reviewed, report pending, large hematoma in right lateral lower leg with callus on underlying fibula, presence of knee replacement) Ultrasound: Report Reviewed (no DVT left leg, no Carter's cyst) Problem List - Problems (1) Traumatic hematoma of right lower leg Assessment/Plan: s/p traumatic wound to right lateral lower leg 2 wks ago in patient on baby aspirin daily, now with large hematoma much of clot evacuated and wound dressed will reevaluate and continue to evacuate clot as able over next 1-2 days anticipate VAC dressing soon and need for VNS on discharge may need to complete local debridement in OR depending on wound appearance by Tuesday hold aspirin for now pain meds prn consider tramadol breakthrough, if tylenol is not enough avoid NSAIDs, given renal and bleeding issues cover with antibiotics - ID following Code(s): S80.11XA - CONTUSION OF RIGHT LOWER LEG, INITIAL ENCOUNTER Qualifiers: Encounter type: sequela Qualified Code(s): S80.11XS - Contusion of right lower leg, sequela (2) S/p total knee replacement, bilateral Code(s): Z96.653 - PRESENCE OF ARTIFICIAL KNEE JOINT, BILATERAL (3) Rheumatoid arthritis Assessment/Plan: on chronic low-dose prednisone and biologic agent monthly consider vitamin A supplementation (50K units daily) Code(s): M06.9 - RHEUMATOID ARTHRITIS, UNSPECIFIED Qualifiers: Rheumatoid arthritis location: multiple sites Rheumatoid factor presence: unspecified presence Qualified Code(s): M06.9 - Rheumatoid arthritis, unspecified (4) Diabetes mellitus type 2 in obese Assessment/Plan: ok for diet this weekend maintain glucose control consider checking A1C Code(s): E11.69 - TYPE 2 DIABETES MELLITUS WITH OTHER SPECIFIED COMPLICATION; E66.9 - OBESITY, UNSPECIFIED (5) HLD (hyperlipidemia) Code(s): E78.5 - HYPERLIPIDEMIA, UNSPECIFIED Qualifiers: Hyperlipidemia type: unspecified Qualified Code(s): E78.5 - Hyperlipidemia , unspecified (6) HTN (hypertension) Assessment/Plan: continue home meds Code(s): I10 - ESSENTIAL (PRIMARY) HYPERTENSION Qualifiers: Hypertension type: essential hypertension Qualified Code(s): I10 - Essential (primary) hypertension (7) H/O malignant neoplasm of kidney Code(s): Z85.528 - PERSONAL HISTORY OF OTHER MALIGNANT NEOPLASM OF KIDNEY
--- NOTE | 2017-09-17 13:07 | PN ---
Progress Note (short form) - Note Progress Note: ID consult dictated 77 year old female with RA - on cimzia and prednisone, history on NIDDM, bilateral TKRs with redos bilaterally banged her right leg on a table 2 weeks ago now admitted with large hematoma at the site no fevers or chills didnot seek medical eval until yesterday has been using topical bacitracin cultures sent vanco/zosyn given in ED no pus from wound hematoma in patient with RA and DM no signs of infection at this time there is a question of whether there was a recent fracture of the leg no recent admissions no history of MRSA will treat with ancef while awaiting workup Problem List - Problems (1) Hematoma Code(s): T14.8XXA - OTHER INJURY OF UNSPECIFIED BODY REGION, INITIAL ENCOUNTER (2) Rheumatoid arthritis Code(s): M06.9 - RHEUMATOID ARTHRITIS, UNSPECIFIED Qualifiers: Rheumatoid arthritis location: multiple sites Rheumatoid factor presence: unspecified presence Qualified Code(s): M06.9 - Rheumatoid arthritis, unspecified (3) Diabetes mellitus type 2 in obese Code(s): E11.69 - TYPE 2 DIABETES MELLITUS WITH OTHER SPECIFIED COMPLICATION; E66.9 - OBESITY, UNSPECIFIED
[2017-09-17 14:07] LABS: HEMATOCRIT 24.2 % (32.4-45.2); MCH 31.7 pg (25.7-33.7); MCHC 33.3 g/dl (32.0-36.0); MEAN CELL VOLUME 95.2 fl (80-96); MEAN PLT VOLUME 7.2 fl (7.5-11.1); PLATELET COUNT 329 K/MM3 (134-434); RBC 2.54 M/mm3 (3.60-5.2); RDW 15.8 % (11.6-15.6); WHITE BLOOD COUNT 8.9 K/mm3 (4.0-10.0)
[2017-09-17] MEDS ORDERED: ceFAZolin SODIUM 1 GM VIAL ONE ×3 (14:12→21:05)
[2017-09-17] MEDS: CEFAZOLIN 1 GM in DEXTROSE 5%-WATER - 50 ML IVPB SCH ×2 (14:36→17:21)
[2017-09-17] MEDS ORDERED: INSULIN (NOVOLOG) ASPART 100 UNITS/ML 10ML VIAL ONE (17:32)
--- NOTE | 2017-09-17 17:48 | EKG ---
Test Reason : Blood Pressure : / mmHG Vent. Rate : 077 BPM Atrial Rate : 077 BPM P-R Int : 190 ms QRS Dur : 086 ms QT Int : 386 ms P-R-T Axes : 043 -44 013 degrees QTc Int : 436 ms SINUS RHYTHM WITH OCCASIONAL PREMATURE VENTRICULAR COMPLEXES LEFT AXIS DEVIATION MINIMAL VOLTAGE CRITERIA FOR LVH, MAY BE NORMAL VARIANT ABNORMAL ECG WHEN COMPARED WITH ECG OF 01-DEC-2016 01:57, PREMATURE VENTRICULAR COMPLEXES ARE NOW PRESENT Confirmed by MARINO HAN, JEREMI ([id number]) on 09/17/2017 5:48:11 PM Referred By: Confirmed By:JEREMI PICHARDO MD
[2017-09-17] MEDS ORDERED: traMADol HCL 50 MG TABLET PO ONE (18:07)
[2017-09-17] MEDS: ATORVASTATIN CA 40 MG TABLET (FP) PO SCH (22:17)
[2017-09-17] MEDS: VALSARTAN 80 MG TABLET (UD) PO SCH (22:18)
[2017-09-18] MEDS: CEFAZOLIN 1 GM in DEXTROSE 5%-WATER - 50 ML IVPB SCH ×3 (02:17→17:31)
[2017-09-18] MEDS: INSULIN SLIDING SCALE (NOVOLOG) 1 VIAL SQ SCH ×3 (06:11→17:30)
[2017-09-18] MEDS ORDERED: INSULIN (NOVOLOG) ASPART 100 UNITS/ML 10ML VIAL ONE ×2 (06:39→17:12)
[2017-09-18 08:15] LABS: BASO % 0.6 % (0-2.0); EOS % 2.2 % (0-4.5); HEMATOCRIT 23.8 % (32.4-45.2); HEMOGLOBIN 8.1 GM/dL (10.7-15.3); LYMPH % 25.4 % (8-40); MCH 32.4 pg (25.7-33.7); MEAN CELL VOLUME 95.4 fl (80-96); MEAN PLT VOLUME 7.1 fl (7.5-11.1); MONO % 9.2 % (3.8-10.2); NEUT % 62.6 % (42.8-82.8); PLATELET COUNT 309 K/MM3 (134-434); RBC 2.49 M/mm3 (3.60-5.2); RDW 15.7 % (11.6-15.6); WHITE BLOOD COUNT 6.6 K/mm3 (4.0-10.0)
[2017-09-18 08:39] LABS: CHLORIDE 105 mmol/L (98-107); SODIUM 141 mmol/L (136-145)
[2017-09-18 08:50] LABS: ANION GAP 4 (8-16); BLOOD UREA NITROGEN 26 mg/dL (7-18); CALCIUM 8.6 mg/dL (8.5-10.1); CO2 32 mmol/L (21-32); CREATININE 1.8 mg/dL (0.55-1.02); GLUCOSE,RANDOM 90 mg/dL (74-106)
[2017-09-18] MEDS ORDERED: DEXTROSE 5%-WATER - 50 ML IVPB ONE ×2 (09:07→17:12)
[2017-09-18] MEDS ORDERED: ceFAZolin SODIUM 1 GM VIAL ONE ×2 (09:07→17:12)
[2017-09-18] MEDS: amLODIPine BESYLATE 10 MG TABLET (FP) PO SCH (09:39)
[2017-09-18] MEDS: predniSONE 5 MG TABLET (UD) PO SCH (09:39)
[2017-09-18] MEDS: RANITIDINE HCL 150 MG TABLET (FP) PO SCH (09:39)
[2017-09-18] MEDS: ACETAMINOPHEN 325 MG TABLET (FP) PO PRN ×2 (09:40→17:25)
--- NOTE | 2017-09-18 09:56 | PN ---
Physical Exam: SUBJECTIVE: Patient seen and examined at bedside. No complaint. Pain controlled with PO tylenol. Aware that she can ask for treamadol if pain exceeds her tolerance. OBJECTIVE: Vital Signs Period Temp Pulse Resp BP Sys/Olson Pulse Ox Last 24 Hr 97.8 F-98.3 F 71-82 16-20 113-130/57-70 95-95 GENERAL: AAOx3, in no acute distress. EYES: PERRL, extraocular movements intact, sclera anicteric, conjunctiva clear. LUNGS: CTAB HEART:RRR, S1, S2 without murmur, rub or gallop. ABDOMEN: Soft, nontender, nondistended, normoactive bowel sounds, no guarding, no rebound EXTREMITIES: 2+ pulses, warm, well-perfused, no edema. CBCD WBC 6.6 K/mm3 (4.0-10.0) 09/18/17 07:45 RBC 2.49 M/mm3 (3.60-5.2) L 09/18/17 07:45 Hgb 8.1 GM/dL (10.7-15.3) L 09/18/17 07:45 Hct 23.8 % (32.4-45.2) L 09/18/17 07:45 MCV 95.4 fl (80-96) 09/18/17 07:45 MCHC 34.0 g/dl (32.0-36.0) 09/18/17 07:45 RDW 15.7 % (11.6-15.6) H 09/18/17 07:45 Plt Count 309 K/MM3 (134-434) 09/18/17 07:45 MPV 7.1 fl (7.5-11.1) L 09/18/17 07:45 CMP Sodium 141 mmol/L (136-145) 09/18/17 07:45 Potassium 4.0 mmol/L (3.5-5.1) 09/18/17 07:45 Chloride 105 mmol/L (98-107) 09/18/17 07:45 Carbon Dioxide 32 mmol/L (21-32) 09/18/17 07:45 Anion Gap 4 (8-16) L 09/18/17 07:45 BUN 26 mg/dL (7-18) H 09/18/17 07:45 Creatinine 1.8 mg/dL (0.55-1.02) H 09/18/17 07:45 Creat Clearance w eGFR 27.36 (>60) 09/18/17 07:45 Calcium 8.6 mg/dL (8.5-10.1) 09/18/17 07:45 Total Bilirubin 0.3 mg/dL (0.2-1.0) D 09/17/17 06:15 AST 15 U/L (15-37) 09/17/17 06:15 ALT 14 U/L (12-78) 09/17/17 06:15 Alkaline Phosphatase 39 U/L (45-117) L 09/17/17 06:15 Total Protein 6.7 g/dl (6.4-8.2) 09/17/17 06:15 Albumin 2.6 g/dl (3.4-5.0) L 09/17/17 06:15 ASSESSMENT/PLAN: 76 yo F h/o HTN, HLD, DM, RA, kidney CA s/p nephrectomy admitted for non- healing RLE wound 2/2 trauma. Non-healing traumatic wound - Complicated by large hematoma s/p blood clot evaucation - For OR on Tuesday for further debridement - Cont. Cefzolin day 2 - Would culture pending - Cont to hold asa - Tylenol for pain scale 1-5, tramadol 6-10 - Avoid NSAID HTN - Stable on norvasc, topolol, diovan HLD - Cont. home med Reumatoid arthritis - Cont. predisone DM - BGM and SSI CKD - Likely 2/2 kidney CA - At baseline Anemia - HGB at baseline FEN - Lytes normal - Na+ and DM diet DVT ppx - Early ambulation Dispo - Will need wound vac and VNS on discharge Levy Garcia PGY2 [phone] Visit type - Emergency Visit Emergency Visit: No - New Patient This patient is new to me today: Yes Date on this admission: 09/18/17 - Critical Care Critical Care patient: No
--- NOTE | 2017-09-18 11:52 | CONS ---
DATE OF CONSULTATION: DATE OF DICTATION: 09/18/2017 This is a 77-year-old woman who hit her right lower extremity on the edge of a wooden table 2 weeks ago. She was trying to kick something and she kicked the table instead. She has been getting it cared for at home with some bacitracin locally. She presented to the emergency room with a very large area of hematoma and induration. There were no associated fevers, chills, nausea, vomiting, diarrhea, or dysuria. She received vancomycin and Zosyn in the emergency room on the and I was asked to see her, which I did at the same time the surgeon saw her. Her history, of note, is that she has rheumatoid arthritis and takes 5 mg of prednisone daily as well as monthly Cimzia. Also of note, she has bilateral total knee replacements that were done in the and replaced subsequently. FAMILY HISTORY: Noncontributory. She is allergic to LISINOPRIL and DEMEROL as well as MORPHINE. She has no antibiotic allergies. MEDICATIONS AT HOME: Aspirin; Lipitor; Cimzia; Toprol-XL; Starlix; Zantac; Januvia; Diovan; 5 mg of prednisone; and amlodipine. PAST MEDICAL HISTORY: Notable for hypertension, hyperlipidemia, diabetes, rheumatoid arthritis, kidney cancer. She is status post nephrectomy. SOCIAL HISTORY: She lives with her daughter. There is no history of any cigarette, alcohol, or substance use. The daughter is currently present. REVIEW OF SYSTEMS: There is no change in appetite. No nausea, vomiting, diarrhea, dysuria, fevers, or chills. PHYSICAL EXAMINATION: General: She is a pleasant woman in no acute distress. Vital Signs: She has been afebrile since admission. Musculoskeletal: She has multiple joint changes, consistent with severe rheumatoid arthritis. She as 2 well-healed total knee replacement scars. HEENT: She is normocephalic. Her eyes are anicteric. Neck: Supple. Lungs: Clear to auscultation. Heart: Regular rate and rhythm. Abdomen: Soft, nontender. Extremities: I saw her in conjunction with the surgeon, who opened the dressing and debrided the hematoma. There was underlying clot; 16 x 13 x 2 was the size of the wound. There was no purulence noted and it was packed by the surgeon. LABORATORIES: Notable for a white count of 8.9, hemoglobin 8, platelets were 329. BUN 30 and creatinine 1.9. Cultures from the emergency room were sent of the area as well as blood cultures. She had a duplex of her leg that was negative and she had a tibia/fibula x-ray of the leg that showed a healed fracture deformity of the distal fibula. SUMMARY: This is a 77-year-old woman with what appears to be a hematoma secondary to injury from the leg. She received a tetanus shot in the emergency room, cultures are pending. There are no signs of infections. There is a question of whether there was a recent fracture. Dr. Mckeon spoke with Orthopedics, who felt that if she had callus formation this was definitely an old process. She has had no recent admissions, no history of methicillin-resistant Staphylococcus aureus. I would treat her with Ancef while awaiting cultures and further workup with the thought that, probably, her antibiotics can be discontinued in the next 24 to 48 hours. DIANNA GIVENS M.D. [id number]
--- NOTE | 2017-09-18 11:55 | PN ---
Progress Note, Physician History of Present Illness: Pt with large traumatic hematoma right lateral lower leg. Seen and examined in bed, outer dressing has been changed 1-2 times since yesterday. Pain minimal, got Tylenol this am. Daughter is bringing her walker today. No fevers, wbc still normal. On Ancef per ID. Wound is being dressed with saline-damp Kerlix. - Current Medication List Current Medications: Active Medications Acetaminophen (Tylenol -) 650 mg PO Q4H PRN PRN Reason: PAIN LEVEL 1-5 Last Admin: 09/18/17 09:40 Dose: 650 mg Amlodipine Besylate (Norvasc -) 10 mg PO DAILY [facility] Last Admin: 09/18/17 09:39 Dose: 10 mg Atorvastatin Calcium (Lipitor -) 40 mg PO HS [facility] Last Admin: 09/17/17 22:17 Dose: 40 mg Cefazolin Sodium 1 gm/ (Dextrose) 50 mls @ 100 mls/hr IVPB Q8H-IV [facility] Last Admin: 09/18/17 09:38 Dose: 100 mls/hr Insulin Aspart (Novolog Vial Sliding Scale -) 1 vial SQ TIDAC [facility]; Protocol Last Admin: 09/18/17 06:11 Dose: Not Given Metoprolol Succinate (Toprol Xl -) 100 mg PO DAILY [facility] Last Admin: 09/18/17 09:39 Dose: 100 mg Prednisone (Deltasone -) 5 mg PO DAILY [facility] Last Admin: 09/18/17 09:39 Dose: 5 mg Ranitidine HCl (Zantac -) 150 mg PO DAILY [facility] Last Admin: 09/18/17 09:39 Dose: 150 mg Valsartan (Diovan -) 80 mg PO [facility] Last Admin: 09/17/17 22:18 Dose: 80 mg - Objective Vital Signs: Vital Signs Temperature 98.1 F 09/18/17 05:00 Pulse Rate 79 09/18/17 05:00 Respiratory Rate 18 09/18/17 05:00 Blood Pressure 117/57 09/18/17 05:00 O2 Sat by Pulse Oximetry (%) 95 09/18/17 09:00 Constitutional: Yes: No Distress, Calm, Obese Eyes: Yes: Conjunctiva Clear, EOM Intact HENT: Yes: Atraumatic, Normocephalic Musculoskeletal: No: Joint Stiffness, Joint Swelling Extremities: Yes: Deformity (angulation of fingers/wrists/ankles from RA). No: Cool, Cyanosis Edema: Yes Edema: LLE: 1+, RLE: 1+ Peripheral Pulses WNL: Yes Integumentary: Yes: Other (large open wound right lower lateral leg with some residual hematoma/clot in superior aspect under loose skin). No: Rash Wound/Incision: Yes: Dressing Removed (and replaced - saline-damp Kerlix against all wound surfaces, covered with ABDs and Kerlix wrap to hold), Bleeding (small oozing at one skin edge, stopped with local pressure), Unapproximated (skin edges with some residual black eschar at rim in places, few spots removed with scissors; residual clot extruded from under superior flap of skin, wound base cleansed with gauze as possible; dressing tucked under skin flap superiorly to contact all wound surfaces), Other (most of residual clot came off with dressing, scattered islands of superficial adherent clot on wound base, which is clean and red-based). No: Dressing Dry and Intact (intact with bloody strikethrough ABD's, Kerlix wrap fairly clean), Draining, Reddened Neurological: Yes: Alert, Oriented Labs: CBC, BMP 09/18/17 07:45 09/18/17 07:45 Problem List - Problems (1) Traumatic hematoma of right lower leg Assessment/Plan: s/p traumatic wound to right lateral lower leg 2 wks ago in patient on baby aspirin daily, now with large hematoma almost all of clot now evacuated and wound redressed nurse assisted with dressing change will continue dressings through tomorrow may need to complete local debridement in OR Tuesday depending on wound appearance Tuesday anticipate VAC dressing soon and need for VNS on discharge discussed with Drs. Servin and Adarsh hold aspirin for now pain meds prn consider tramadol breakthrough, if tylenol is not enough - tylenol was sufficient for dressing change today avoid NSAIDs, given renal and bleeding issues cover with antibiotics - ID following Code(s): S80.11XA - CONTUSION OF RIGHT LOWER LEG, INITIAL ENCOUNTER Qualifiers: Encounter type: sequela Qualified Code(s): S80.11XS - Contusion of right lower leg, sequela (2) S/p total knee replacement, bilateral Code(s): Z96.653 - PRESENCE OF ARTIFICIAL KNEE JOINT, BILATERAL (3) Rheumatoid arthritis Assessment/Plan: on chronic low-dose prednisone and biologic agent monthly consider vitamin A supplementation (50K units daily) Code(s): M06.9 - RHEUMATOID ARTHRITIS, UNSPECIFIED Qualifiers: Rheumatoid arthritis location: multiple sites Rheumatoid factor presence: unspecified presence Qualified Code(s): M06.9 - Rheumatoid arthritis, unspecified (4) Diabetes mellitus type 2 in obese Assessment/Plan: ok for diet this weekend maintain glucose control consider checking A1C Code(s): E11.69 - TYPE 2 DIABETES MELLITUS WITH OTHER SPECIFIED COMPLICATION; E66.9 - OBESITY, UNSPECIFIED (5) HLD (hyperlipidemia) Code(s): E78.5 - HYPERLIPIDEMIA, UNSPECIFIED Qualifiers: Hyperlipidemia type: unspecified Qualified Code(s): E78.5 - Hyperlipidemia , unspecified (6) HTN (hypertension) Assessment/Plan: continue home meds Code(s): I10 - ESSENTIAL (PRIMARY) HYPERTENSION Qualifiers: Hypertension type: essential hypertension Qualified Code(s): I10 - Essential (primary) hypertension (7) H/O malignant neoplasm of kidney Code(s): Z85.528 - PERSONAL HISTORY OF OTHER MALIGNANT NEOPLASM OF KIDNEY
--- NOTE | 2017-09-18 13:26 | PN ---
Teaching Attending Note Name of Resident: Levy Garcia ATTENDING PHYSICIAN STATEMENT I saw and evaluated the patient. I reviewed the resident's note and discussed the case with the resident. I agree with the resident's findings and plan as documented. SUBJECTIVE:states she has a constant 2 out of 10 pain in her leg. tylenol does help but does not take the pain away. denies Cp, SOB, fever, chills, N/V/c/D. had colonoscopy 5 years ago had polyps and scheduled for another one in a few weeks. last BM yesterday OBJECTIVE: Last Vital Signs Temp Pulse Resp BP Pulse Ox 98.1 F 79 18 117/57 95 09/18/17 05:00 09/18/17 05:00 09/18/17 05:00 09/18/17 05:00 09/18/17 09:00 General NAD CV S1 S2 RRR no murmur/rub/gallop Lungs CTA B/L no wheezing/rales/rhonchi Abdomen soft NT/Nd obese Extremities RLE wrapped in jerry c/d/i. deformity of the R ankle with non pitting edema. Pulse 2+. LLE no edema ASSESSMENT AND PLAN: 76F with DM2, RA on chronic steroids, RCCC s/p nephrectomy, dyslipidema and HTN presented to the ER with RLE wound after trauma and found to have a large hematoma. 1. RLE hematoma- s/p trauma now with clot evacuated here by surgery. only mild improvement. requesting something more for pain but only reports pain level 2 out of 10. informed can not have NSAIDS due to bleeding risk and due to allergies makes it difficult to prescribe anything stronger. has nausea with demerol and morphine. explained to her can offer tramadol which can cause nausea as well but that its not considered a "true allergy" stated she will "bear with the pain". informed her tylenol is available to her. and that our goal is to make pain bearable and not completely take the pain away. Hgb been stable. will be re-evaluated tomorrow and determine if needs further evacuation. on empiric Cefazolin day 2. hold asa. ID and surgery on board. F/u Cx 2. Acute on CKD- baseline Cr 1.7. likely dehydration. slowly trending down. will cont medications for now. if starts to trend up will consider holding arb. 3. Acute blood loss anemia with iron def anemia- due to hematoma now evacuated. is on iron at home. will re-start. no indication for txn at this time. scheduled colonoscopy this summer. 4. DM- controlled. hold oral agents. cont iss 5. RA- on pred 5mg. continue 6. HTN- controlled. cont home course 7. dyslipidemia- statin 8, DVT ppx- EAM. would hold pharmacolgic anticoagulation in setting of hematoma 9. spoke with daughter present at bedside. all questions answered. verbalized understanding and agreement with plan
[2017-09-18] MEDS ORDERED: PT OWN MED DRAWER 7, Y5N ONE (17:11)
[2017-09-18] MEDS: ATORVASTATIN CA 40 MG TABLET (FP) PO SCH (21:11)
[2017-09-18] MEDS: VALSARTAN 80 MG TABLET (UD) PO SCH (21:11)
[2017-09-19] MEDS ORDERED: ceFAZolin SODIUM 1 GM VIAL ONE ×3 (01:01→18:34)
[2017-09-19] MEDS ORDERED: DEXTROSE 5%-WATER - 50 ML IVPB ONE ×3 (01:01→18:34)
[2017-09-19] MEDS: CEFAZOLIN 1 GM in DEXTROSE 5%-WATER - 50 ML IVPB SCH ×3 (01:19→18:38)
[2017-09-19] MEDS: INSULIN SLIDING SCALE (NOVOLOG) 1 VIAL SQ SCH ×3 (06:03→16:38)
[2017-09-19 07:53] LABS: HEMATOCRIT 25.6 % (32.4-45.2); HEMOGLOBIN 8.6 GM/dL (10.7-15.3); MCH 32.1 pg (25.7-33.7); MCHC 33.5 g/dl (32.0-36.0); MEAN CELL VOLUME 95.9 fl (80-96); MEAN PLT VOLUME 8.1 fl (7.5-11.1); PLATELET COUNT 330 K/MM3 (134-434); RBC 2.67 M/mm3 (3.60-5.2); RDW 15.7 % (11.6-15.6); WHITE BLOOD COUNT 7.9 K/mm3 (4.0-10.0)
[2017-09-19 08:19] LABS: ANION GAP 7 (8-16); BLOOD UREA NITROGEN 26 mg/dL (7-18); CALCIUM 8.7 mg/dL (8.5-10.1); CHLORIDE 105 mmol/L (98-107); CO2 28 mmol/L (21-32); CREATININE 1.5 mg/dL (0.55-1.02); GLUCOSE,RANDOM 88 mg/dL (74-106); SODIUM 140 mmol/L (136-145)
--- NOTE | 2017-09-19 09:00 | PN ---
Progress Note (short form) - Note Progress Note: feels well no fevers Vital Signs Period Temp Pulse Resp BP Sys/Olson Pulse Ox Last 24 Hr 97.7 F-98.3 F 75-85 18-18 116-130/63-71 95-96 cor-rrr lungs clear abd soft,nt ext trace edema dressing intact CBC, BMP 09/19/17 06:20 09/19/17 06:20 Microbiology 09/16/17 23:33 Blood - Peripheral Venous Blood Culture - Preliminary NO GROWTH OBTAINED AFTER 48 HOURS, INCUBATION TO CONTINUE FOR 3 DAYS. 09/16/17 23:33 Blood - Peripheral Venous Blood Culture - Preliminary NO GROWTH OBTAINED AFTER 48 HOURS, INCUBATION TO CONTINUE FOR 3 DAYS. 09/16/17 22:49 Leg - Right Lower Gram Stain - Final 09/16/17 22:49 Leg - Right Lower Wound Culture - Preliminary Lactose Fermenting Neg Bacilli Lactose Fermenting Neg Bacilli#2 Corynebacterium Species a/p hematoma f/u cultures per surgery note wound is clean possible OR debridement in am continue ancef
[2017-09-19] MEDS: amLODIPine BESYLATE 10 MG TABLET (FP) PO SCH (09:43)
[2017-09-19] MEDS: predniSONE 5 MG TABLET (UD) PO SCH (09:43)
[2017-09-19] MEDS: FERROUS SO4 325 MG TABLET (FP) PO SCH ×2 (09:43→16:34)
[2017-09-19] MEDS: RANITIDINE HCL 150 MG TABLET (FP) PO SCH (09:43)
[2017-09-19] MEDS: ACETAMINOPHEN 325 MG TABLET (FP) PO PRN (15:59)
--- NOTE | 2017-09-19 16:54 | PN ---
Teaching Attending Note Name of Resident: Polly Larsen ATTENDING PHYSICIAN STATEMENT I saw and evaluated the patient. I reviewed the resident's note and discussed the case with the resident. I agree with the resident's findings and plan as documented. SUBJECTIVE:asymptomatic. states pain is controlled. denies CP, SOB, fever, chills, N/V/C/D OBJECTIVE: Last Vital Signs Temp Pulse Resp BP Pulse Ox 97.9 F 79 18 124/71 97 09/19/17 09:00 09/19/17 09:00 09/19/17 09:00 09/19/17 09:00 09/19/17 09:00 General NAD CV S1 S2 RRR no murmur/rub/gallop Lungs CTA B/L no wheezing/rales/rhonchi Extremities RLE wrapped in jerry c/d/i. deformity of the R ankle with non pitting edema. Pulse 2+. LLE no edema ASSESSMENT AND PLAN: 76F with DM2, RA on chronic steroids, RCCC s/p nephrectomy, dyslipidema and HTN presented to the ER with RLE wound after trauma and found to have a large hematoma. 1. RLE hematoma- s/p trauma now with clot evacuated here by surgery. possible OR tomorrow for further clot excavation. cont with pain control. on empiric Cefazolin day 3. hold asa. ID and surgery on board. F/u Cx 2. Acute on CKD- baseline Cr 1.7. likely dehydration. slowly trending down. will cont medications for now. 3. Acute blood loss anemia with iron def anemia- due to hematoma now evacuated. iron supplements. no indication for txn at this time. scheduled colonoscopy this summer. 4. DM- controlled. hold oral agents. cont iss 5. RA- on pred 5mg. continue 6. HTN- controlled. cont home course 7. dyslipidemia- statin 8, DVT ppx- EAM. would hold pharmacolgic anticoagulation in setting of hematoma
--- NOTE | 2017-09-19 18:07 | PN ---
Physical Exam: SUBJECTIVE: Patient seen and examined. No fevers overnight. Wound guaze packing dressing done by Dr Mckeon and superficial dressing change by nurse yesterday. Pt not in pain. OBJECTIVE: Vital Signs Period Temp Pulse Resp BP Sys/Olson Pulse Ox Last 24 Hr 97.7 F-98.3 F 78-85 18-18 117-130/65-71 96-97 Vital Signs Temp 98.2 F 09/19/17 18:00 Pulse 79 09/19/17 18:00 Resp 18 09/19/17 18:00 BP 126/73 09/19/17 18:00 Pulse Ox 97 09/19/17 09:00 Intake & Output 09/18/17 09/19/17 09/19/17 23:59 11:59 23:59 Intake Total 550 50 Balance 550 50 Intake: IVPB 100 50 Oral 450 Other: Voiding Method Bedpan Bedpan Bedpan # Unmeasured Voids Void 1 Bowel Movement No GENERAL: The patient is awake, alert, and fully oriented, in no acute painful distress. Sitting up in bed for breakfast LUNGS: Breath sounds equal, clear to auscultation bilaterally, no wheezes, no crackles HEART: Regular rate and rhythm, S1, S2 without murmur. ABDOMEN: Soft, nontender, nondistended, normoactive bowel sounds EXTREMITIES: R medial mathew with 10cm x 5cm packed traumatic ulcer, soaked gauze with serosanguinous fluid. Depth could not be appreciated due to packing NEUROLOGICAL: AAOx3. Normal speech. Able to move all limbs CBC, BMP 09/19/17 06:20 09/19/17 06:20 Laboratory Results - last 24 hr 09/19/17 09/19/17 09/19/17 06:02 06:20 06:20 WBC 7.9 RBC 2.67 L Hgb 8.6 L Hct 25.6 L MCV 95.9 MCH 32.1 MCHC 33.5 RDW 15.7 H Plt Count 330 MPV 8.1 D Sodium 140 Potassium 4.0 Chloride 105 Carbon Dioxide 28 Anion Gap 7 L BUN 26 H Creatinine 1.5 H Creat Clearance w eGFR 33.76 POC Glucometer 106 Random Glucose 88 Calcium 8.7 Magnesium 2.0 09/19/17 09/19/17 11:06 16:36 WBC RBC Hgb Hct MCV MCH MCHC RDW Plt Count MPV Sodium Potassium Chloride Carbon Dioxide Anion Gap BUN Creatinine Creat Clearance w eGFR POC Glucometer 120 155 Random Glucose Calcium Magnesium Active Medications Current Medications Acetaminophen (Tylenol -) 650 mg PO Q4H PRN PRN Reason: PAIN LEVEL 1-5 Last Admin: 09/19/17 15:59 Dose: 650 mg Amlodipine Besylate (Norvasc -) 10 mg PO DAILY [facility] Last Admin: 09/19/17 09:43 Dose: 10 mg Atorvastatin Calcium (Lipitor -) 40 mg PO [facility] Last Admin: 09/18/17 21:11 Dose: 40 mg Ferrous Sulfate (Feosol -) 325 mg PO BIDWM [facility] Last Admin: 09/19/17 16:34 Dose: 325 mg Cefazolin Sodium 1 gm/ (Dextrose) 50 mls @ 100 mls/hr IVPB Q8H-IV [facility] Last Admin: 09/19/17 18:38 Dose: 100 mls/hr Insulin Aspart (Novolog Vial Sliding Scale -) 1 vial SQ TIDAC [facility]; Protocol Last Admin: 09/19/17 16:38 Dose: Not Given Metoprolol Succinate (Toprol Xl -) 100 mg PO DAILY [facility] Last Admin: 09/19/17 09:43 Dose: 100 mg Prednisone (Deltasone -) 5 mg PO DAILY [facility] Last Admin: 09/19/17 09:43 Dose: 5 mg Ranitidine HCl (Zantac -) 150 mg PO DAILY [facility] Last Admin: 09/19/17 09:43 Dose: 150 mg Valsartan (Diovan -) 80 mg PO [facility] Last Admin: 09/18/17 21:11 Dose: 80 mg Microbiology 09/16/17 22:49 Leg - Right Lower Gram Stain - Final 09/16/17 22:49 Leg - Right Lower Wound Culture - Preliminary Enterobacter Cloacae Klebsiella Pneumoniae Corynebacterium Species Pending Organism 09/16/17 23:33 Blood - Peripheral Venous Blood Culture - Preliminary NO GROWTH OBTAINED AFTER 48 HOURS, INCUBATION TO CONTINUE FOR 3 DAYS. 09/16/17 23:33 Blood - Peripheral Venous Blood Culture - Preliminary NO GROWTH OBTAINED AFTER 48 HOURS, INCUBATION TO CONTINUE FOR 3 DAYS. ASSESSMENT/PLAN: 76 yo F h/o HTN, HLD, DM, RA, kidney CA s/p nephrectomy admitted for non- healing RLE wound 2/2 trauma. Non-healing traumatic wound - with large hematoma now s/p blood clot evacuation - For OR on Tuesday for further debridement - Cont. Cefzolin day 3 - Would culture as above - Cont to hold asa - Tylenol for pain scale 1-5, tramadol 6-10 - Avoid NSAID HTN - Stable on norvasc, topolol, diovan HLD - Cont. home med Reumatoid arthritis - Cont. predisone DM - BGM and SSI CKD - Likely 2/2 kidney CA - At baseline Anemia - Iron def at baseline -cont iron supplement FEN - Lytes normal - Na+ and DM diet - NPO after midnight DVT ppx - Early ambulation Dispo - Will need wound vac and VNS on discharge For OR tomorrow Visit type - Emergency Visit Emergency Visit: Yes ED Registration Date: 09/17/17 Care time: The patient presented to the Emergency Department on the above date and was hospitalized for further evaluation of their emergent condition. - New Patient This patient is new to me today: Yes Date on this admission: 09/19/17 - Critical Care Critical Care patient: No - Discharge Referral Referred to [facility] Med P.C.: No
--- NOTE | 2017-09-19 18:37 | PN ---
Progress Note, Physician History of Present Illness: Pt with large traumatic hematoma right lateral lower leg. Seen and examined in bed, outer dressing with serosang strikethrough but intact. Pain minimal. Pt has been OOB with walker today. On Ancef per ID. Wound is being dressed with saline-damp Kerlix. - Current Medication List Current Medications: Active Medications Acetaminophen (Tylenol -) 650 mg PO Q4H PRN PRN Reason: PAIN LEVEL 1-5 Last Admin: 09/19/17 15:59 Dose: 650 mg Amlodipine Besylate (Norvasc -) 10 mg PO DAILY [facility] Last Admin: 09/19/17 09:43 Dose: 10 mg Atorvastatin Calcium (Lipitor -) 40 mg PO HS [facility] Last Admin: 09/18/17 21:11 Dose: 40 mg Ferrous Sulfate (Feosol -) 325 mg PO BIDWM [facility] Last Admin: 09/19/17 16:34 Dose: 325 mg Cefazolin Sodium 1 gm/ (Dextrose) 50 mls @ 100 mls/hr IVPB Q8H-IV [facility] Last Admin: 09/19/17 09:43 Dose: 100 mls/hr Insulin Aspart (Novolog Vial Sliding Scale -) 1 vial SQ TIDAC [facility]; Protocol Last Admin: 09/19/17 16:38 Dose: Not Given Metoprolol Succinate (Toprol Xl -) 100 mg PO DAILY [facility] Last Admin: 09/19/17 09:43 Dose: 100 mg Prednisone (Deltasone -) 5 mg PO DAILY [facility] Last Admin: 09/19/17 09:43 Dose: 5 mg Ranitidine HCl (Zantac -) 150 mg PO DAILY [facility] Last Admin: 09/19/17 09:43 Dose: 150 mg Valsartan (Diovan -) 80 mg PO HS [facility] Last Admin: 09/18/17 21:11 Dose: 80 mg - Objective Vital Signs: Vital Signs Temperature 97.9 F 09/19/17 09:00 Pulse Rate 79 09/19/17 09:00 Respiratory Rate 18 09/19/17 09:00 Blood Pressure 124/71 09/19/17 09:00 O2 Sat by Pulse Oximetry (%) 97 09/19/17 09:00 Constitutional: Yes: No Distress, Calm, Obese Eyes: Yes: Conjunctiva Clear, EOM Intact HENT: Yes: Atraumatic, Normocephalic Extremities: Yes: Deformity (rheumatoid deformities), Other (RLL wound). No: Cool, Cyanosis Integumentary: Yes: Other (RLL wound dressed). No: Erythema, Rash Wound/Incision: Yes: Dressing Dry and Intact (with strikethrough), Dressing Removed (and changed with nurse, daughter at bedside), Draining (serous to serosang on dressings), Bleeding (minimal oozing from small raw skin surface superiorly only), Unapproximated (granulating, dark red wound bed, few areas of black/necrotic skin at outer rim, close to skin level posterolaterally, superiorly has area of undermining with overlying flap of thin, raw skin; overall clean and with no obvious residual clot remaining) Neurological: Yes: Alert, Oriented Labs: CBC, BMP 09/19/17 06:20 09/19/17 06:20 Microbiology 09/16/17 22:49 Gram Stain - Final Leg - Right Lower Wound Culture - Preliminary Enterobacter Cloacae Klebsiella Pneumoniae Corynebacterium Species Pending Organism 09/16/17 23:33 Blood Culture - Preliminary Blood - Peripheral Venous NO GROWTH OBTAINED AFTER 48 HOURS, INCUBATION TO CONTINUE FOR 3 DAYS. 09/16/17 23:33 Blood Culture - Preliminary Blood - Peripheral Venous NO GROWTH OBTAINED AFTER 48 HOURS, INCUBATION TO CONTINUE FOR 3 DAYS. wound culture was from ER, prior to clot evacuation and likely contaminated from wound/skin edges Problem List - Problems (1) Traumatic hematoma of right lower leg Assessment/Plan: s/p traumatic wound to right lateral lower leg 2 wks ago in patient on baby aspirin daily, now with large hematoma all of clot now evacuated and wound redressed nurse assisted with dressing change will complete local debridement in OR Tuesday and apply VAC dressing will need VNS on discharge to continue MWF VAC changes will complete forms tomorrow once final measurements available Discussed with patient risks, benefits and alternatives of right lower leg wound debridement and VAC application, including but not limited to bleeding, infection, and need for further procedures; alternatives include antibiotics, delayed or no surgery - risks of this include delayed wound healing, increased tissue loss, need for later procedures. Patient desires to proceed with operation - will take to OR for above tomorrow. Informed consent signed for same. NPO after midnight, but will be able to eat again postop. Also discussed possibility that skin graft may be considered at some point in future, depending on how wound closure progresses. May request rheumatology input as relates to wound healing and whether medication adjustments might be entertained to maximize wound healing potential. holding aspirin for now pain meds prn consider tramadol breakthrough, if tylenol is not enough avoid NSAIDs, given renal and bleeding issues continue antibiotics - ID following culture was from prior to clot evacuation - wound appears clean at this time Ancef is likely reasonable coverage given knee hardware and immunocompromise Code(s): S80.11XA - CONTUSION OF RIGHT LOWER LEG, INITIAL ENCOUNTER Qualifiers: Encounter type: sequela Qualified Code(s): S80.11XS - Contusion of right lower leg, sequela (2) S/p total knee replacement, bilateral Code(s): Z96.653 - PRESENCE OF ARTIFICIAL KNEE JOINT, BILATERAL (3) Rheumatoid arthritis Code(s): M06.9 - RHEUMATOID ARTHRITIS, UNSPECIFIED Qualifiers: Rheumatoid arthritis location: multiple sites Rheumatoid factor presence: unspecified presence Qualified Code(s): M06.9 - Rheumatoid arthritis, unspecified (4) Diabetes mellitus type 2 in obese Code(s): E11.69 - TYPE 2 DIABETES MELLITUS WITH OTHER SPECIFIED COMPLICATION; E66.9 - OBESITY, UNSPECIFIED (5) HLD (hyperlipidemia) Code(s): E78.5 - HYPERLIPIDEMIA, UNSPECIFIED Qualifiers: Hyperlipidemia type: unspecified Qualified Code(s): E78.5 - Hyperlipidemia , unspecified (6) HTN (hypertension) Code(s): I10 - ESSENTIAL (PRIMARY) HYPERTENSION Qualifiers: Hypertension type: essential hypertension Qualified Code(s): I10 - Essential (primary) hypertension (7) H/O malignant neoplasm of kidney Code(s): Z85.528 - PERSONAL HISTORY OF OTHER MALIGNANT NEOPLASM OF KIDNEY
[2017-09-19] MEDS: VALSARTAN 80 MG TABLET (UD) PO SCH (23:27)
[2017-09-19] MEDS: ATORVASTATIN CA 40 MG TABLET (FP) PO SCH (23:27)
[2017-09-20] MEDS ORDERED: ceFAZolin SODIUM 1 GM VIAL ONE ×3 (00:54→15:39)
[2017-09-20] MEDS ORDERED: DEXTROSE 5%-WATER - 50 ML IVPB ONE ×2 (00:54→08:46)
[2017-09-20] MEDS: CEFAZOLIN 1 GM in DEXTROSE 5%-WATER - 50 ML IVPB SCH ×3 (03:00→18:22)
[2017-09-20] MEDS: INSULIN SLIDING SCALE (NOVOLOG) 1 VIAL SQ SCH ×3 (06:43→17:33)
[2017-09-20 07:33] LABS: BASO % 0.7 % (0-2.0); EOS % 2.1 % (0-4.5); HEMATOCRIT 24.3 % (32.4-45.2); HEMOGLOBIN 8.2 GM/dL (10.7-15.3); LYMPH % 32.4 % (8-40); MCHC 33.6 g/dl (32.0-36.0); MEAN CELL VOLUME 95.3 fl (80-96); MEAN PLT VOLUME 7.5 fl (7.5-11.1); MONO % 12.3 % (3.8-10.2); NEUT % 52.5 % (42.8-82.8); PLATELET COUNT 283 K/MM3 (134-434); RBC 2.55 M/mm3 (3.60-5.2); RDW 15.2 % (11.6-15.6); WHITE BLOOD COUNT 4.8 K/mm3 (4.0-10.0)
[2017-09-20 08:16] LABS: ALBUMIN 2.6 g/dl (3.4-5.0); ALK PHOS 39 U/L (45-117); ANION GAP 6 (8-16); BILIRUBIN,TOTAL 0.3 mg/dL (0.2-1.0); BLOOD UREA NITROGEN 26 mg/dL (7-18); CALCIUM 8.4 mg/dL (8.5-10.1); CHLORIDE 106 mmol/L (98-107); CO2 29 mmol/L (21-32); CREATININE 1.5 mg/dL (0.55-1.02); GLUCOSE,RANDOM 86 mg/dL (74-106); PHOSPHOROUS 3.3 mg/dL (2.5-4.9); POTASSIUM 3.9 mmol/L (3.5-5.1); SGOT/AST 16 U/L (15-37); SGPT/ALT 10 U/L (12-78); SODIUM 141 mmol/L (136-145); TOT PROT 6.8 g/dl (6.4-8.2)
[2017-09-20] MEDS: amLODIPine BESYLATE 10 MG TABLET (FP) PO SCH (10:09)
[2017-09-20] MEDS: predniSONE 5 MG TABLET (UD) PO SCH (10:09)
[2017-09-20] MEDS: FERROUS SO4 325 MG TABLET (FP) PO SCH ×2 (10:09→17:33)
[2017-09-20] MEDS: RANITIDINE HCL 150 MG TABLET (FP) PO SCH (10:10)
[2017-09-20] MEDS ORDERED: PROPOFOL 20 ML ONE ×2 (14:37→15:59)
--- NOTE | 2017-09-20 15:15 | PN ---
Teaching Attending Note Name of Resident: Polly Larsen ATTENDING PHYSICIAN STATEMENT I saw and evaluated the patient. I reviewed the resident's note and discussed the case with the resident. I agree with the resident's findings and plan as documented with exceptions below. SUBJECTIVE: patient seen and examined, denies leg pain currently, no dizziness or new complaints. OBJECTIVE: Vital Signs Period Temp Pulse Resp BP Sys/Olson Pulse Ox Last 24 Hr 98 F-98.5 F 77-83 18-18 112-142/61-81 95 Intake & Output 09/17/17 09/18/17 09/19/17 09/20/17 23:59 23:59 23:59 23:59 Intake Total 1275 800 50 50 Output Total 400 Balance 1275 800 -350 50 Weight 215 lb General: sitting in bed in no acute distress Extremities: RLE wound dressing open, elongated wound with packing involving almost whole length of right leg along lateral surface, no surrounding erythema/ warmth or discharge, packing present, positive DP pulses Home Medication List Medication Instructions Recorded Confirmed Type Aspirin [ASA -] 81 mg PO HS 08/09/15 09/17/17 History Atorvastatin Ca [Lipitor] 40 mg PO HS 08/09/15 09/17/17 History Certolizumab Pegol [Cimzia] 400 mg SQ MONTHLY 08/09/15 09/16/17 History Metoprolol Succinate [Toprol XL -] 100 mg PO DAILY 08/09/15 09/17/17 History Nateglinide [Starlix (Nf) -] 120 mg PO ASDIR 08/09/15 09/16/17 History Ranitidine HCl [Zantac] 150 mg PO DAILY 08/09/15 09/17/17 History Sitagliptin Phosphate [Januvia] 100 mg PO DAILY 08/09/15 09/17/17 History Valsartan [Diovan] 80 mg PO HS 08/09/15 09/17/17 History predniSONE [Deltasone -] 5 mg PO DAILY 08/09/15 09/17/17 History Amlodipine Besylate 10 mg PO DAILY 12/01/16 09/17/17 History Active Medications Generic Name Dose Route Start Last Admin Trade Name Freq PRN Reason Stop Dose Admin Acetaminophen 650 mg 09/17/17 01:35 09/19/17 15:59 Tylenol - PO 650 mg Q4H PRN Administration PAIN LEVEL 1-5 Amlodipine Besylate 10 mg 09/17/17 10:00 09/20/17 10:09 Norvasc - PO 10 mg DAILY CINDY Administration Atorvastatin Calcium 40 mg 09/17/17 22:00 09/19/17 23:27 Lipitor - PO 40 mg HS CINDY Administration Ferrous Sulfate 325 mg 09/19/17 08:00 09/20/17 10:09 Feosol - PO Not Given BIDWM [facility] Cefazolin Sodium 1 gm/ 50 mls @ 100 mls/hr 09/17/17 13:15 09/20/17 09:44 Dextrose IVPB 100 mls/hr Q8H-IV CINDY Administration Insulin Aspart 1 vial 09/17/17 07:00 09/20/17 11:31 Novolog Vial Sliding Scale - SQ Not Given TIDAC [facility] Protocol Metoprolol Succinate 100 mg 09/17/17 10:00 09/20/17 10:09 Toprol Xl - PO 100 mg DAILY CINDY Administration Prednisone 5 mg 09/17/17 10:00 09/20/17 10:09 Deltasone - PO Not Given DAILY [facility] Ranitidine HCl 150 mg 09/17/17 10:00 09/20/17 10:10 Zantac - PO Not Given DAILY [facility] Valsartan 80 mg 09/17/17 22:00 09/19/17 23:27 Diovan - PO 80 mg HS CINDY Administration Laboratory Results - last 24 hr 09/19/17 09/20/17 09/20/17 16:36 06:00 06:00 WBC 4.8 D RBC 2.55 L Hgb 8.2 L Hct 24.3 L MCV 95.3 MCH 32.0 MCHC 33.6 RDW 15.2 Plt Count 283 MPV 7.5 Absolute Neuts (auto) 2.5 Neutrophils % 52.5 Lymphocytes % 32.4 D Monocytes % 12.3 H Eosinophils % 2.1 Basophils % 0.7 Nucleated RBC % 0 Sodium 141 Potassium 3.9 Chloride 106 Carbon Dioxide 29 Anion Gap 6 L BUN 26 H Creatinine 1.5 H Creat Clearance w eGFR 33.76 POC Glucometer 155 Random Glucose 86 Calcium 8.4 L Phosphorus 3.3 Magnesium 2.0 Total Bilirubin 0.3 AST 16 ALT 10 L Alkaline Phosphatase 39 L Total Protein 6.8 Albumin 2.6 L 09/20/17 09/20/17 06:42 11:54 WBC RBC Hgb Hct MCV MCH MCHC RDW Plt Count MPV Absolute Neuts (auto) Neutrophils % Lymphocytes % Monocytes % Eosinophils % Basophils % Nucleated RBC % Sodium Potassium Chloride Carbon Dioxide Anion Gap BUN Creatinine Creat Clearance w eGFR POC Glucometer 98 98 Random Glucose Calcium Phosphorus Magnesium Total Bilirubin AST ALT Alkaline Phosphatase Total Protein Albumin ASSESSMENT AND PLAN: 76F with DM2, RA on chronic steroids, RCCC s/p nephrectomy, dyslipidema and HTN presented to the ER with RLE wound after trauma and found to have a large hematoma. -RLE hematoma s/p trauma -BRENNEN on CKD stage III (baseline Cr 1.7) -Acute blood loss anemia with iron deficiency -NIDDM -RA -HTN -HLD plan: Surgery input noted. s/p bedside clot evaluation. For OR debridement and wound vac today. PT eval and anticipate VNS in 24 hours if no new concerns. Cefazolin day 4, discuss with based on wound concerns. Wound cx noted. ID input noted. Cr around baseline. Fe suppl, colonoscopy scheduled this summer. Statin Amlodipine/metoprolol/valsartan. Continue prednisone. DVTPPX with SCDs dispo planning home with VNS in 24 hours if no new concerns. plan discussed with patient in detail, all questions answered.
[2017-09-20] MEDS ORDERED: LIDOCAINE HCL 1%, 10 MG/ML (20ML VIAL) ONE (15:40)
[2017-09-20] MEDS ORDERED: BUPIVACAINE HCL/PF 0.5% (5MG/ML) 10 ML VIAL ONE (15:40)
[2017-09-20] MEDS ORDERED: ceFAZolin SODIUM 1 GM VIAL IVPB ONE (15:40)
[2017-09-20] MEDS ORDERED: BUPIVACAINE HCL/PF (5 MG/ML) 30 ML VIAL IJ ONE (16:33)
[2017-09-20] MEDS ORDERED: LIDOCAINE HCL 1%, 10 MG/ML (20ML VIAL) INF ONE ×2 (16:33)
[2017-09-20] MEDS ORDERED: BENZOIN/ALOE VERA/STORAX/TOLU 58 ML BOTTLE ONE (16:41)
[2017-09-20] MEDS ORDERED: ONDANSETRON 4 MG/2 ML VIAL IVPUSH PRN (17:07)
--- NOTE | 2017-09-20 17:22 | OP ---
Operative Note - Note: Operative Date: 09/20/17 Pre-Operative Diagnosis: right lower leg traumatic wound Operation: debridement of skin and subcutaneous tissue ~30cm2; application of VAC to right lower leg wound, >50cm2 Findings: clean, granulating wound bed wound measures 18.5 x 12 cm elliptical, 0.5cm depth at superior end undermining present superiorly ranging 2-3.5cm between 11 and 1:00 also inferiorly 1cm at bottom edge only half-thickness black granufoam used for VAC dressing, one large piece and one small additional piece superiorly good seal obtained at -125mm continuous pressure Post-Operative Diagnosis: Same as Pre-op Surgeon: Reyes Mckeon Ic Designer Gate Arrays: Kecia Olson Anesthesiologist/PUNCHER AND FASTENER: John Hilton Anesthesia: General (without artificial airway), Local (20ml 1% lidocaine + 0.5 % marcaine) Specimens Removed: skin and subcu tissue not sent to pathology Estimated Blood Loss (mls): 5 Instrument used (Debridements only): electrocautery and forceps Drains & Tubes with Location: VAC to negative 125mm continuous pressure, right lateral lower leg Fluid Volume Replaced (mls): 600 (crystalloid) Operative Report Dictated: Yes
[2017-09-20] MEDS ORDERED: traMADol HCL 50 MG TABLET PO PRN ×2 (17:35→17:42)
[2017-09-20] MEDS ORDERED: ACETAMINOPHEN 325 MG TABLET (FP) PO PRN (17:38)
[2017-09-20] MEDS ORDERED: CEFAZOLIN 1 GM/D5W 1 GM/50 ML BAG IVPB SCH (18:00)
[2017-09-20] MEDS ORDERED: CEFAZOLIN 1 GM in DEXTROSE 5%-WATER - 50 ML IVPB SCH (18:00)
[2017-09-20] MEDS: ACETAMINOPHEN 325 MG TABLET (FP) PO PRN (19:00)
[2017-09-20 21:08] LABS: HEMATOCRIT 26.5 % (32.4-45.2); HEMOGLOBIN 8.7 GM/dL (10.7-15.3); MCH 31.4 pg (25.7-33.7); MCHC 32.8 g/dl (32.0-36.0); MEAN CELL VOLUME 95.6 fl (80-96); MEAN PLT VOLUME 7.4 fl (7.5-11.1); PLATELET COUNT 333 K/MM3 (134-434); RBC 2.77 M/mm3 (3.60-5.2); RDW 15.3 % (11.6-15.6); WHITE BLOOD COUNT 7.6 K/mm3 (4.0-10.0)
[2017-09-20] MEDS: VALSARTAN 80 MG TABLET (UD) PO SCH (22:43)
[2017-09-20] MEDS: ATORVASTATIN CA 40 MG TABLET (FP) PO SCH (22:43)
--- NOTE | 2017-09-20 23:07 | PN ---
Physical Exam: SUBJECTIVE: Patient seen and examined. Slept all night with no complaint. No fever, no leg pain. Expecting debridement in the OR later in the day. OBJECTIVE: Vital Signs Period Temp Pulse Resp BP Sys/Olson Pulse Ox Last 24 Hr 97.9 F-98.6 F 68-83 12-18 110-142/60-81 94-98 Vital Signs Temp 98.6 F 09/20/17 18:42 Pulse 72 09/20/17 18:42 Resp 18 09/20/17 18:42 BP 127/76 09/20/17 18:42 Pulse Ox 98 09/20/17 18:42 Intake & Output 09/19/17 09/20/17 09/20/17 23:59 11:59 23:59 Intake Total 50 150 Output Total 400 5 200 Balance -400 45 -50 Intake: IV 0 150 IVPB 50 Output: Urine 400 200 Void 400 200 Estimated Blood Loss 5 Other: Voiding Method Bedpan Bedpan Bedpan # Unmeasured Voids Void 2 Bowel Movement No Intake & Output 09/17/17 09/18/17 09/19/17 09/20/17 23:59 23:59 23:59 23:59 Intake Total 1275 800 50 200 Output Total 400 205 Balance 1275 800 -350 -5 Weight 97.522 kg GENERAL: The patient is awake, alert, and fully oriented, in no acute distress. LUNGS: Breath sounds equal, clear to auscultation bilaterally, no wheezes, no crackles HEART: Regular rate and rhythm, S1, S2 ABDOMEN: Soft, nontender, nondistended, normoactive bowel sounds EXTREMITIES: 2+ pulses, warm bilaterally. R leg traumatic wound. Serosanguinous stain on NEUROLOGICAL: AAOx3. Able to move all limbs, normal speech. CBC, BMP 09/20/17 20:30 09/20/17 06:00 Laboratory Results - last 24 hr 09/20/17 09/20/17 09/20/17 06:00 06:00 06:42 WBC 4.8 D RBC 2.55 L Hgb 8.2 L Hct 24.3 L MCV 95.3 MCH 32.0 MCHC 33.6 RDW 15.2 Plt Count 283 MPV 7.5 Absolute Neuts (auto) 2.5 Neutrophils % 52.5 Lymphocytes % 32.4 D Monocytes % 12.3 H Eosinophils % 2.1 Basophils % 0.7 Nucleated RBC % 0 Sodium 141 Potassium 3.9 Chloride 106 Carbon Dioxide 29 Anion Gap 6 L BUN 26 H Creatinine 1.5 H Creat Clearance w eGFR 33.76 POC Glucometer 98 Random Glucose 86 Calcium 8.4 L Phosphorus 3.3 Magnesium 2.0 Total Bilirubin 0.3 AST 16 ALT 10 L Alkaline Phosphatase 39 L Total Protein 6.8 Albumin 2.6 L 09/20/17 09/20/17 11:54 20:30 WBC 7.6 D RBC 2.77 L Hgb 8.7 L Hct 26.5 L MCV 95.6 MCH 31.4 MCHC 32.8 RDW 15.3 Plt Count 333 MPV 7.4 L Absolute Neuts (auto) Neutrophils % Lymphocytes % Monocytes % Eosinophils % Basophils % Nucleated RBC % Sodium Potassium Chloride Carbon Dioxide Anion Gap BUN Creatinine Creat Clearance w eGFR POC Glucometer 98 Random Glucose Calcium Phosphorus Magnesium Total Bilirubin AST ALT Alkaline Phosphatase Total Protein Albumin Current Medications Acetaminophen (Tylenol -) 650 mg PO Q6H PRN PRN Reason: Pain Level 4-10 Last Admin: 09/20/17 19:00 Dose: 650 mg Amlodipine Besylate (Norvasc -) 10 mg PO DAILY [facility] Atorvastatin Calcium (Lipitor -) 40 mg PO [facility] Last Admin: 09/20/17 22:43 Dose: 40 mg Ferrous Sulfate (Feosol -) 325 mg PO BIDWM [facility] Cefazolin Sodium 1 gm/ (Dextrose) 50 mls @ 100 mls/hr IVPB Q8H-IV CINDY Last Admin: 09/20/17 18:22 Dose: Not Given Insulin Aspart (Novolog Vial Sliding Scale -) 1 vial SQ TIDAC [facility]; Protocol Metoprolol Succinate (Toprol Xl -) 100 mg PO DAILY [facility] Prednisone (Deltasone -) 5 mg PO DAILY [facility] Ranitidine HCl (Zantac -) 150 mg PO DAILY [facility] Tramadol HCl (Ultram -) 50 mg PO Q8H PRN PRN Reason: Pain Level 8-10 BREAKTHROUGH Last Admin: 09/20/17 20:04 Dose: 50 mg Valsartan (Diovan -) 80 mg PO HS [facility] Last Admin: 09/20/17 22:43 Dose: 80 mg Ambulatory Orders Aspirin [ASA -] 81 mg PO HS 08/09/15 Atorvastatin Ca [Lipitor] 40 mg PO HS 08/09/15 Certolizumab Pegol [Cimzia] 400 mg SQ MONTHLY 08/09/15 Metoprolol Succinate [Toprol XL -] 100 mg PO DAILY 08/09/15 Nateglinide [Starlix (Nf) -] 120 mg PO ASDIR 08/09/15 Ranitidine HCl [Zantac] 150 mg PO DAILY 08/09/15 Sitagliptin Phosphate [Januvia] 100 mg PO DAILY 08/09/15 Valsartan [Diovan] 80 mg PO HS 08/09/15 predniSONE [Deltasone -] 5 mg PO DAILY 08/09/15 Amlodipine Besylate 10 mg PO DAILY 12/01/16 Microbiology 09/16/17 22:49 Leg - Right Lower Gram Stain - Final 09/16/17 22:49 Leg - Right Lower Wound Culture - Final Enterobacter Cloacae Klebsiella Pneumoniae Corynebacterium Species Staphylococcus Coagulase Neg 09/16/17 23:33 Blood - Peripheral Venous Blood Culture - Preliminary NO GROWTH OBTAINED AFTER 72 HOURS, INCUBATION TO CONTINUE FOR 2 DAYS. 09/16/17 23:33 Blood - Peripheral Venous Blood Culture - Preliminary NO GROWTH OBTAINED AFTER 72 HOURS, INCUBATION TO CONTINUE FOR 2 DAYS. ASSESSMENT/PLAN: 76 yo F h/o HTN, HLD, DM, RA, kidney CA s/p nephrectomy admitted for non- healing RLE wound 2/2 trauma. Non-healing traumatic wound - with large hematoma now s/p blood clot evacuation - OR today for further debridement-wound vac applied, follow recs per surgery - Dr Mckeon - Cont. Cefazolin (started 09/17/17) day 4- ID on board - Wound culture as above - Cont to hold asa - Tylenol for pain scale 1-5, tramadol 6-10 - Avoid NSAID HTN - Stable on norvasc, topolol, diovan HLD - Cont. home med Reumatoid arthritis - Cont. predisone, certolizumab DM - BGM and ISS CKD -S/p nephrectomy - Likely 2/2 kidney CA - At baseline Anemia - Iron def at baseline -cont iron supplement FEN - Lytes normal - Na+ and DM diet - NPO after midnight DVT ppx - Early ambulation Dispo - Will need wound vac and VNS on discharge Visit type - Emergency Visit Emergency Visit: Yes ED Registration Date: 09/17/17 Care time: The patient presented to the Emergency Department on the above date and was hospitalized for further evaluation of their emergent condition. - New Patient This patient is new to me today: No - Critical Care Critical Care patient: No - Discharge Referral Referred to [facility] Med P.C.: No
[2017-09-21] MEDS ORDERED: ceFAZolin SODIUM 1 GM VIAL ONE ×2 (02:55→09:02)
[2017-09-21] MEDS ORDERED: DEXTROSE 5%-WATER - 50 ML IVPB ONE ×2 (02:55→09:02)
[2017-09-21] MEDS: CEFAZOLIN 1 GM in DEXTROSE 5%-WATER - 50 ML IVPB SCH ×2 (03:03→10:48)
[2017-09-21] MEDS: ACETAMINOPHEN 325 MG TABLET (FP) PO PRN (06:34)
[2017-09-21] MEDS: INSULIN SLIDING SCALE (NOVOLOG) 1 VIAL SQ SCH ×3 (06:39→17:11)
[2017-09-21 08:11] LABS: CHLORIDE 105 mmol/L (98-107); POTASSIUM 4.1 mmol/L (3.5-5.1); SODIUM 140 mmol/L (136-145)
--- NOTE | 2017-09-21 08:11 | PN ---
Progress Note (short form) - Note Progress Note: ID Debridement of LE wound yesterday Still on Cefazolin Selected Entries 09/21/17 09/21/17 01:30 06:00 Temperature 99 F 99.9 F H Pulse Rate 84 Respiratory 18 Rate Blood Pressure 130/66 Lung Clear ausc Cor S1 S2 RR no murmur Abd Soft nontender Ext RLE VAC Microbiology 09/16/17 22:49 Leg - Right Lower Gram Stain - Final 09/16/17 22:49 Leg - Right Lower Wound Culture - Final Enterobacter Cloacae Klebsiella Pneumoniae Corynebacterium Species Staphylococcus Coagulase Neg 09/16/17 23:33 Blood - Peripheral Venous Blood Culture - Preliminary NO GROWTH OBTAINED AFTER 96 HOURS, INCUBATION TO CONTINUE FOR 1 DAYS. 09/16/17 23:33 Blood - Peripheral Venous Blood Culture - Preliminary NO GROWTH OBTAINED AFTER 96 HOURS, INCUBATION TO CONTINUE FOR 1 DAYS. Laboratory Tests 09/20/17 09/20/17 06:00 20:30 WBC 7.6 D Hgb 8.7 L Hct 26.5 L Plt Count 333 BUN 26 H Creatinine 1.5 H Assessment Debridement of LE wound Plan Consider change to oral quinolone for few more days Lokesh HAN
[2017-09-21 08:18] LABS: ALBUMIN 2.5 g/dl (3.4-5.0); ALK PHOS 39 U/L (45-117); ANION GAP 7 (8-16); BILIRUBIN,TOTAL 0.3 mg/dL (0.2-1.0); BLOOD UREA NITROGEN 23 mg/dL (7-18); CALCIUM 8.1 mg/dL (8.5-10.1); CO2 28 mmol/L (21-32); CREATININE 1.5 mg/dL (0.55-1.02); GLUCOSE,RANDOM 89 mg/dL (74-106); MAGNESIUM 1.7 mg/dL (1.8-2.4); SGOT/AST 17 U/L (15-37); SGPT/ALT 9 U/L (12-78); TOT PROT 6.5 g/dl (6.4-8.2)
[2017-09-21 08:27] LABS: BASO % 0.5 % (0-2.0); EOS % 1.9 % (0-4.5); HEMATOCRIT 23.7 % (32.4-45.2); LYMPH % 24.2 % (8-40); MCH 32.2 pg (25.7-33.7); MCHC 33.7 g/dl (32.0-36.0); MEAN CELL VOLUME 95.5 fl (80-96); MEAN PLT VOLUME 7.7 fl (7.5-11.1); MONO % 10.5 % (3.8-10.2); NEUT % 62.9 % (42.8-82.8); PLATELET COUNT 281 K/MM3 (134-434); RBC 2.49 M/mm3 (3.60-5.2); RDW 14.9 % (11.6-15.6); WHITE BLOOD COUNT 6.7 K/mm3 (4.0-10.0)
--- NOTE | 2017-09-21 09:43 | PN ---
Progress Note, Physician Chief Complaint: day #1 s/p RLE debridement - Current Medication List Current Medications: Active Medications Acetaminophen (Tylenol -) 650 mg PO Q6H PRN PRN Reason: Pain Level 4-10 Last Admin: 09/21/17 06:34 Dose: 650 mg Amlodipine Besylate (Norvasc -) 10 mg PO DAILY [facility] Atorvastatin Calcium (Lipitor -) 40 mg PO HS [facility] Last Admin: 09/20/17 22:43 Dose: 40 mg Ferrous Sulfate (Feosol -) 325 mg PO BIDWM [facility] Cefazolin Sodium 1 gm/ (Dextrose) 50 mls @ 100 mls/hr IVPB Q8H-IV CINDY Last Admin: 09/21/17 03:03 Dose: 100 mls/hr Insulin Aspart (Novolog Vial Sliding Scale -) 1 vial SQ TIDAC [facility]; Protocol Last Admin: 09/21/17 06:39 Dose: Not Given Metoprolol Succinate (Toprol Xl -) 100 mg PO DAILY [facility] Prednisone (Deltasone -) 5 mg PO DAILY [facility] Ranitidine HCl (Zantac -) 150 mg PO DAILY [facility] Tramadol HCl (Ultram -) 50 mg PO Q8H PRN PRN Reason: Pain Level 8-10 BREAKTHROUGH Last Admin: 09/20/17 20:04 Dose: 50 mg Valsartan (Diovan -) 80 mg PO HS [facility] Last Admin: 09/20/17 22:43 Dose: 80 mg - Objective Vital Signs: Vital Signs Temperature 99.9 F H 09/21/17 06:00 Pulse Rate 84 09/21/17 06:00 Respiratory Rate 18 09/21/17 06:00 Blood Pressure 130/66 09/21/17 06:00 O2 Sat by Pulse Oximetry (%) 96 09/20/17 21:00 Labs: CBC, BMP 09/21/17 06:45 09/21/17 06:45 INR, PTT INR 1.10 (0.82-1.09) 09/17/17 06:15 Assessment/Plan Doing well after GA; no anesthetic issues/complications
[2017-09-21] MEDS: predniSONE 5 MG TABLET (UD) PO SCH (09:47)
[2017-09-21] MEDS: RANITIDINE HCL 150 MG TABLET (FP) PO SCH (09:47)
[2017-09-21] MEDS: FERROUS SO4 325 MG TABLET (FP) PO SCH ×2 (09:47→17:11)
[2017-09-21] MEDS: amLODIPine BESYLATE 10 MG TABLET (FP) PO SCH (10:49)
[2017-09-21] MEDS ORDERED: PT OWN MED DRAWER 7, Y5N ONE (11:31)
[2017-09-21] MEDS ORDERED: levoFLOXacin 750 MG TABLET PO SCH (12:00)
--- NOTE | 2017-09-21 17:18 | PN ---
Physical Exam: SUBJECTIVE: Patient seen and examined. Was in the OR yesterday, got debridement and now on wound vac. No fevers, pain controlled. OBJECTIVE: Vital Signs Period Temp Pulse Resp BP Sys/Olson Pulse Ox Last 24 Hr 98.2 F-99.9 F 68-88 16-18 100-130/51-76 94-98 Vital Signs Temp 98.5 F 09/21/17 20:29 Pulse 90 09/21/17 20:29 Resp 20 09/21/17 20:29 BP 105/59 09/21/17 20:29 Pulse Ox 96 09/21/17 20:29 Intake & Output 09/20/17 09/21/17 09/21/17 23:59 11:59 23:59 Intake Total 150 50 170 Output Total 400 200 Balance -250 50 -30 Intake: IV 150 IVPB 50 50 Oral 120 Output: Urine 400 200 Void 400 200 Other: Voiding Method Bedpan Bedpan Bedpan Bowel Movement No # Bowel Movements 1 GENERAL: The patient is awake, alert, and fully oriented, in no acute distress. LUNGS: Breath sounds equal, clear to auscultation bilaterally HEART: Regular rate and rhythm, S1, S2 ABDOMEN: Soft, nontender, nondistended, normoactive bowel sounds EXTREMITIES: Rt Mathew with wound up to 20cm by about 15cm with wound vac applied. L mathew normal. 2+ pulses bilat. NEUROLOGICAL: AAOx3. Normal speech CBC, BMP 09/21/17 06:45 09/21/17 06:45 Laboratory Results - last 24 hr 09/20/17 09/21/17 09/21/17 20:30 06:33 06:45 WBC 7.6 D RBC 2.77 L Hgb 8.7 L Hct 26.5 L MCV 95.6 MCH 31.4 MCHC 32.8 RDW 15.3 Plt Count 333 MPV 7.4 L Absolute Neuts (auto) Neutrophils % Lymphocytes % Monocytes % Eosinophils % Basophils % Nucleated RBC % Sodium 140 Potassium 4.1 Chloride 105 Carbon Dioxide 28 Anion Gap 7 L BUN 23 H Creatinine 1.5 H Creat Clearance w eGFR 33.76 POC Glucometer 105 Random Glucose 89 Calcium 8.1 L Phosphorus 3.0 Magnesium 1.7 L Total Bilirubin 0.3 AST 17 ALT 9 L Alkaline Phosphatase 39 L Total Protein 6.5 Albumin 2.5 L 09/21/17 09/21/17 09/21/17 06:45 11:35 16:28 WBC 6.7 RBC 2.49 L Hgb 8.0 L Hct 23.7 L MCV 95.5 MCH 32.2 MCHC 33.7 RDW 14.9 Plt Count 281 MPV 7.7 Absolute Neuts (auto) 4.2 Neutrophils % 62.9 Lymphocytes % 24.2 D Monocytes % 10.5 H Eosinophils % 1.9 Basophils % 0.5 Nucleated RBC % 0 Sodium Potassium Chloride Carbon Dioxide Anion Gap BUN Creatinine Creat Clearance w eGFR POC Glucometer 111 192 Random Glucose Calcium Phosphorus Magnesium Total Bilirubin AST ALT Alkaline Phosphatase Total Protein Albumin Active Medications Generic Name Dose Route Start Last Admin Trade Name Freq PRN Reason Stop Dose Admin Acetaminophen 650 mg 09/20/17 17:42 09/21/17 06:34 Tylenol - PO 650 mg Q6H PRN Administration Pain Level 4-10 Amlodipine Besylate 10 mg 09/21/17 10:00 09/21/17 10:49 Norvasc - PO Not Given DAILY [facility] Atorvastatin Calcium 40 mg 09/20/17 22:00 09/20/17 22:43 Lipitor - PO 40 mg HS CINDY Administration Ferrous Sulfate 325 mg 09/21/17 08:00 09/21/17 17:11 Feosol - PO 325 mg BIDWM CINDY Administration Levofloxacin 250 mg in 50 mls @ 50 mls/hr 09/21/17 11:30 09/21/17 11:34 Levaquin 250 Mg Premixed Ivpb - IVPB 50 mls/hr DAILY CINDY Administration Insulin Aspart 1 vial 09/21/17 07:00 09/21/17 17:11 Novolog Vial Sliding Scale - SQ Not Given TIDAC [facility] Protocol Metoprolol Succinate 100 mg 09/21/17 10:00 09/21/17 10:49 Toprol Xl - PO Not Given DAILY [facility] Prednisone 5 mg 09/21/17 10:00 09/21/17 09:47 Deltasone - PO 5 mg DAILY CINDY Administration Ranitidine HCl 150 mg 09/21/17 10:00 09/21/17 09:47 Zantac - PO 150 mg DAILY CINDY Administration Tramadol HCl 50 mg 09/20/17 17:42 09/20/17 20:04 Ultram - PO 50 mg Q8H PRN Administration Pain Level 8-10 BREAKTHROUGH Valsartan 80 mg 09/20/17 22:00 09/20/17 22:43 Diovan - PO 80 mg HS CINDY Administration Microbiology 09/16/17 23:33 Blood - Peripheral Venous Blood Culture - Final NO GROWTH AFTER 5 DAYS INCUBATION 09/16/17 23:33 Blood - Peripheral Venous Blood Culture - Final NO GROWTH AFTER 5 DAYS INCUBATION 09/16/17 22:49 Leg - Right Lower Gram Stain - Final 09/16/17 22:49 Leg - Right Lower Wound Culture - Final Enterobacter Cloacae Klebsiella Pneumoniae Corynebacterium Species Staphylococcus Coagulase Neg ASSESSMENT/PLAN: 76 yo F h/o HTN, HLD, DM, RA, kidney CA s/p nephrectomy admitted for non- healing RLE wound 2/2 trauma. Non-healing traumatic wound - with large hematoma now s/p blood clot evacuation and debridement - Now on wound vac - For dressing change by Dr Mckeon in 72hrs and then dc planning - Cefazolin (started 09/17/17) day 5- ID on board- changed to levaquin - Wound culture and sensitivity resistant to cefazolin, orgs pansensitive to quinolones - Cont to hold asa - Tylenol for pain scale 1-5, tramadol 6-10 - Avoid NSAID HTN - meds held with low BP today - home norvasc, topolol, HLD - Cont. home med Reumatoid arthritis - Cont. predisone, -certolizumab on hold DM - BGM and ISS CKD -S/p nephrectomy - Likely 2/2 kidney CA - At baseline Anemia - Iron def at baseline -cont iron supplement FEN - Lytes normal - Na+ and DM diet - NPO after midnight DVT ppx - Early ambulation Dispo - Will need wound vac and VNS on discharge Visit type - Emergency Visit Emergency Visit: Yes ED Registration Date: 09/17/17 Care time: The patient presented to the Emergency Department on the above date and was hospitalized for further evaluation of their emergent condition. - New Patient This patient is new to me today: No - Critical Care Critical Care patient: No - Discharge Referral Referred to [facility] Med P.C.: No
--- NOTE | 2017-09-21 17:42 | PN ---
Teaching Attending Note Name of Resident: Polly Larsen ATTENDING PHYSICIAN STATEMENT I saw and evaluated the patient. I reviewed the resident's note and discussed the case with the resident. I agree with the resident's findings and plan as documented with exceptions below. SUBJECTIVE: patient seen and examined. no new pain or complaints. OBJECTIVE: Vital Signs Period Temp Pulse Resp BP Sys/Olson Pulse Ox Last 24 Hr 98.2 F-99.9 F 68-88 16-18 100-130/51-76 95-98 Intake & Output 09/18/17 09/19/17 09/20/17 09/21/17 23:59 23:59 23:59 23:59 Intake Total 800 50 200 50 Output Total 400 405 Balance 800 -350 -205 50 General: sitting in bed in no acute distress Extremities: RLE wound vac with no surrounding erythema/swelling or tenderness, positive pulses Home Medications Medication Instructions Recorded Aspirin [ASA -] 81 mg PO HS 08/09/15 Atorvastatin Ca [Lipitor] 40 mg PO HS 08/09/15 Certolizumab Pegol [Cimzia] 400 mg SQ MONTHLY 08/09/15 Metoprolol Succinate [Toprol XL -] 100 mg PO DAILY 08/09/15 Nateglinide [Starlix (Nf) -] 120 mg PO ASDIR 08/09/15 Ranitidine HCl [Zantac] 150 mg PO DAILY 08/09/15 Sitagliptin Phosphate [Januvia] 100 mg PO DAILY 08/09/15 Valsartan [Diovan] 80 mg PO HS 08/09/15 predniSONE [Deltasone -] 5 mg PO DAILY 08/09/15 Amlodipine Besylate 10 mg PO DAILY 12/01/16 Active Medications Acetaminophen (Tylenol -) 650 mg PO Q6H PRN PRN Reason: Pain Level 4-10 Last Admin: 09/21/17 06:34 Dose: 650 mg Amlodipine Besylate (Norvasc -) 10 mg PO DAILY [facility] Last Admin: 09/21/17 10:49 Dose: Not Given Atorvastatin Calcium (Lipitor -) 40 mg PO [facility] Last Admin: 09/20/17 22:43 Dose: 40 mg Ferrous Sulfate (Feosol -) 325 mg PO BIDWM [facility] Last Admin: 09/21/17 17:11 Dose: 325 mg Levofloxacin (Levaquin 250 Mg Premixed Ivpb -) 250 mg in 50 mls @ 50 mls/hr IVPB DAILY [facility] Last Admin: 09/21/17 11:34 Dose: 50 mls/hr Insulin Aspart (Novolog Vial Sliding Scale -) 1 vial SQ TIDAC [facility]; Protocol Last Admin: 09/21/17 17:11 Dose: Not Given Metoprolol Succinate (Toprol Xl -) 100 mg PO DAILY [facility] Last Admin: 09/21/17 10:49 Dose: Not Given Prednisone (Deltasone -) 5 mg PO DAILY [facility] Last Admin: 09/21/17 09:47 Dose: 5 mg Ranitidine HCl (Zantac -) 150 mg PO DAILY [facility] Last Admin: 09/21/17 09:47 Dose: 150 mg Tramadol HCl (Ultram -) 50 mg PO Q8H PRN PRN Reason: Pain Level 8-10 BREAKTHROUGH Last Admin: 09/20/17 20:04 Dose: 50 mg Valsartan (Diovan -) 80 mg PO [facility] Last Admin: 09/20/17 22:43 Dose: 80 mg Laboratory Results - last 24 hr 09/20/17 09/21/17 09/21/17 20:30 06:33 06:45 WBC 7.6 D RBC 2.77 L Hgb 8.7 L Hct 26.5 L MCV 95.6 MCH 31.4 MCHC 32.8 RDW 15.3 Plt Count 333 MPV 7.4 L Absolute Neuts (auto) Neutrophils % Lymphocytes % Monocytes % Eosinophils % Basophils % Nucleated RBC % Sodium 140 Potassium 4.1 Chloride 105 Carbon Dioxide 28 Anion Gap 7 L BUN 23 H Creatinine 1.5 H Creat Clearance w eGFR 33.76 POC Glucometer 105 Random Glucose 89 Calcium 8.1 L Phosphorus 3.0 Magnesium 1.7 L Total Bilirubin 0.3 AST 17 ALT 9 L Alkaline Phosphatase 39 L Total Protein 6.5 Albumin 2.5 L 09/21/17 09/21/17 09/21/17 06:45 11:35 16:28 WBC 6.7 RBC 2.49 L Hgb 8.0 L Hct 23.7 L MCV 95.5 MCH 32.2 MCHC 33.7 RDW 14.9 Plt Count 281 MPV 7.7 Absolute Neuts (auto) 4.2 Neutrophils % 62.9 Lymphocytes % 24.2 D Monocytes % 10.5 H Eosinophils % 1.9 Basophils % 0.5 Nucleated RBC % 0 Sodium Potassium Chloride Carbon Dioxide Anion Gap BUN Creatinine Creat Clearance w eGFR POC Glucometer 111 192 Random Glucose Calcium Phosphorus Magnesium Total Bilirubin AST ALT Alkaline Phosphatase Total Protein Albumin ASSESSMENT AND PLAN: 76F with DM2, RA on chronic steroids, RCCC s/p nephrectomy, dyslipidema and HTN presented to the ER with RLE wound after trauma and found to have a large hematoma. -RLE hematoma s/p trauma s/p bedside clot evaluation and OR debridement with wound vac (09/20) -BRENNEN on CKD stage III (baseline Cr 1.7) -Acute blood loss anemia with iron deficiency -NIDDM -RA -HTN -HLD plan: Doing well, d/c with VNS with wound vac and outpatient follow up. ID input noted. levaquin with PO transition on d/c per ID. Fe suppl, colonoscopy scheduled this summer. Statin Amlodipine/metoprolol/valsartan. Continue prednisone. DVTPPX with SCDs dispo planning home with VNS in 24 hours if no new concerns. plan discussed with patient in detail, all questions answered.
--- NOTE | 2017-09-21 19:26 | PN ---
Progress Note, Physician History of Present Illness: Pt with large traumatic hematoma right lateral lower leg, s/p OR debridement and VAC application. Pain minimal. Pt has been OOB and ambulated. On Ancef per ID. Wound is clean and granulating. VAC intact with 250ml serosang drainage in canister. Daughter at bedside. - Current Medication List Current Medications: Active Medications Acetaminophen (Tylenol -) 650 mg PO Q6H PRN PRN Reason: Pain Level 4-10 Last Admin: 09/21/17 06:34 Dose: 650 mg Amlodipine Besylate (Norvasc -) 10 mg PO DAILY [facility] Last Admin: 09/21/17 10:49 Dose: Not Given Atorvastatin Calcium (Lipitor -) 40 mg PO HS [facility] Last Admin: 09/20/17 22:43 Dose: 40 mg Ferrous Sulfate (Feosol -) 325 mg PO BIDWM [facility] Last Admin: 09/21/17 17:11 Dose: 325 mg Levofloxacin (Levaquin 250 Mg Premixed Ivpb -) 250 mg in 50 mls @ 50 mls/hr IVPB DAILY [facility] Last Admin: 09/21/17 11:34 Dose: 50 mls/hr Insulin Aspart (Novolog Vial Sliding Scale -) 1 vial SQ TIDAC [facility]; Protocol Last Admin: 09/21/17 17:11 Dose: Not Given Metoprolol Succinate (Toprol Xl -) 100 mg PO DAILY [facility] Last Admin: 09/21/17 10:49 Dose: Not Given Prednisone (Deltasone -) 5 mg PO DAILY [facility] Last Admin: 09/21/17 09:47 Dose: 5 mg Ranitidine HCl (Zantac -) 150 mg PO DAILY [facility] Last Admin: 09/21/17 09:47 Dose: 150 mg Tramadol HCl (Ultram -) 50 mg PO Q8H PRN PRN Reason: Pain Level 8-10 BREAKTHROUGH Last Admin: 09/20/17 20:04 Dose: 50 mg Valsartan (Diovan -) 80 mg PO [facility] Last Admin: 09/20/17 22:43 Dose: 80 mg - Objective Vital Signs: Vital Signs Temperature 98.2 F 09/21/17 18:00 Pulse Rate 87 09/21/17 18:00 Respiratory Rate 18 09/21/17 18:00 Blood Pressure 107/62 09/21/17 18:00 O2 Sat by Pulse Oximetry (%) 97 09/21/17 09:00 Constitutional: Yes: Well Nourished, No Distress, Calm Eyes: Yes: Conjunctiva Clear, EOM Intact HENT: Yes: Atraumatic, Normocephalic Extremities: Yes: Deformity (rheumatoid joints), Other (right lateral lower leg with VAC, sealed at -125mm cont pressure; hyperpigmentation around wound edges) . No: Cool, Cyanosis Integumentary: Yes: Other (RLL wound with VAC). No: Rash Wound/Incision: Yes: Dressing Dry and Intact (VAC - see above), Draining ( serosang in canister). No: Dressing Removed Neurological: Yes: Alert, Oriented Labs: CBC, BMP 09/21/17 06:45 09/21/17 06:45 Problem List - Problems (1) Traumatic hematoma of right lower leg Assessment/Plan: s/p traumatic wound to right lateral lower leg 2 wks ago in diabetic patient on baby aspirin and steroid/biologic for RA, developed large hematoma with full- thickness skin necrosis POD1 s/p OR debridement of wound edges, application of VAC dressing VAC intact with good seal, serosang drainage pain minimal ambulating with assistance, PT plan to change VAC Tuesday will be able to d/c home when home supplies arrive, with VNS to continue VAC changes MWF at home Also discussed possibility that skin graft may be considered at some point in future, depending on how wound closure progresses. Will contact pt's engine wiper (Jin Palmer) tomorrow to discuss holding Cimzia this week and whether medication adjustments might be entertained to maximize wound healing potential. holding aspirin for now Tylenol prn consider tramadol breakthrough, if tylenol is not enough avoid NSAIDs, given renal and bleeding issues ID following culture was from prior to clot evacuation - wound very clean at OR could probably d/c abx by Tuesday Code(s): S80.11XA - CONTUSION OF RIGHT LOWER LEG, INITIAL ENCOUNTER Qualifiers: Encounter type: sequela Qualified Code(s): S80.11XS - Contusion of right lower leg, sequela (2) S/p total knee replacement, bilateral Code(s): Z96.653 - PRESENCE OF ARTIFICIAL KNEE JOINT, BILATERAL (3) Rheumatoid arthritis Assessment/Plan: on chronic low-dose prednisone and biologic agent monthly consider vitamin A supplementation (50K units daily) Code(s): M06.9 - RHEUMATOID ARTHRITIS, UNSPECIFIED Qualifiers: Rheumatoid arthritis location: multiple sites Rheumatoid factor presence: unspecified presence Qualified Code(s): M06.9 - Rheumatoid arthritis, unspecified (4) Diabetes mellitus type 2 in obese Assessment/Plan: maintain glucose control consider checking A1C Code(s): E11.69 - TYPE 2 DIABETES MELLITUS WITH OTHER SPECIFIED COMPLICATION; E66.9 - OBESITY, UNSPECIFIED (5) HLD (hyperlipidemia) Code(s): E78.5 - HYPERLIPIDEMIA, UNSPECIFIED Qualifiers: Hyperlipidemia type: unspecified Qualified Code(s): E78.5 - Hyperlipidemia , unspecified (6) HTN (hypertension) Assessment/Plan: continue home meds Code(s): I10 - ESSENTIAL (PRIMARY) HYPERTENSION Qualifiers: Hypertension type: essential hypertension Qualified Code(s): I10 - Essential (primary) hypertension (7) H/O malignant neoplasm of kidney Code(s): Z85.528 - PERSONAL HISTORY OF OTHER MALIGNANT NEOPLASM OF KIDNEY
[2017-09-21] MEDS: VALSARTAN 80 MG TABLET (UD) PO SCH (21:15)
[2017-09-21] MEDS: ATORVASTATIN CA 40 MG TABLET (FP) PO SCH (21:15)
[2017-09-22] MEDS ORDERED: MAGNESIUM OXIDE 400 MG TABLET (FP) PO ONE (05:13)
[2017-09-22] MEDS: INSULIN SLIDING SCALE (NOVOLOG) 1 VIAL SQ SCH ×3 (06:40→17:17)
[2017-09-22 07:15] LABS: BASO % 0.5 % (0-2.0); EOS % 2.5 % (0-4.5); HEMATOCRIT 22.4 % (32.4-45.2); HEMOGLOBIN 7.5 GM/dL (10.7-15.3); LYMPH % 26.7 % (8-40); MCH 32.1 pg (25.7-33.7); MCHC 33.7 g/dl (32.0-36.0); MEAN CELL VOLUME 95.1 fl (80-96); MEAN PLT VOLUME 7.3 fl (7.5-11.1); MONO % 11.6 % (3.8-10.2); NEUT % 58.7 % (42.8-82.8); PLATELET COUNT 279 K/MM3 (134-434); RBC 2.35 M/mm3 (3.60-5.2); RDW 14.6 % (11.6-15.6); WHITE BLOOD COUNT 5.3 K/mm3 (4.0-10.0)
[2017-09-22 08:43] LABS: CHLORIDE 104 mmol/L (98-107); SODIUM 140 mmol/L (136-145)
[2017-09-22] MEDS: FERROUS SO4 325 MG TABLET (FP) PO SCH ×2 (08:52→17:26)
[2017-09-22 09:07] LABS: ALBUMIN 2.5 g/dl (3.4-5.0); ALK PHOS 38 U/L (45-117); ANION GAP 9 (8-16); BILIRUBIN,TOTAL 0.4 mg/dL (0.2-1.0); BLOOD UREA NITROGEN 27 mg/dL (7-18); CALCIUM 8.1 mg/dL (8.5-10.1); CO2 27 mmol/L (21-32); CREATININE 1.6 mg/dL (0.55-1.02); GLUCOSE,RANDOM 89 mg/dL (74-106); MAGNESIUM 1.8 mg/dL (1.8-2.4); SGOT/AST 14 U/L (15-37); SGPT/ALT 9 U/L (12-78); TOT PROT 6.6 g/dl (6.4-8.2)
[2017-09-22] MEDS: RANITIDINE HCL 150 MG TABLET (FP) PO SCH (09:28)
[2017-09-22] MEDS: predniSONE 5 MG TABLET (UD) PO SCH (09:28)
[2017-09-22] MEDS: amLODIPine BESYLATE 10 MG TABLET (FP) PO SCH (09:28)
--- NOTE | 2017-09-22 13:54 | PN ---
Teaching Attending Note Name of Resident: Polly Larsen ATTENDING PHYSICIAN STATEMENT I saw and evaluated the patient. I reviewed the resident's note and discussed the case with the resident. I agree with the resident's findings and plan as documented with exceptions below. SUBJECTIVE: Patient seen and examined. No pain or complaints. OBJECTIVE: Vital Signs Period Temp Pulse Resp BP Sys/Olson Pulse Ox Last 24 Hr 98.2 F-98.5 F 86-92 18-20 105-116/59-65 96-98 Intake & Output 09/19/17 09/20/17 09/21/17 09/22/17 23:59 23:59 23:59 23:59 Intake Total 50 200 220 Output Total 400 405 400 Balance -350 -205 -180 General: sitting in bed in no acute distress Extremities: right leg wound with wound vac in place, exam unchanged Home Medications Medication Instructions Recorded Aspirin [ASA -] 81 mg PO HS 08/09/15 Atorvastatin Ca [Lipitor] 40 mg PO HS 08/09/15 Certolizumab Pegol [Cimzia] 400 mg SQ MONTHLY 08/09/15 Metoprolol Succinate [Toprol XL -] 100 mg PO DAILY 08/09/15 Nateglinide [Starlix (Nf) -] 120 mg PO ASDIR 08/09/15 Ranitidine HCl [Zantac] 150 mg PO DAILY 08/09/15 Sitagliptin Phosphate [Januvia] 100 mg PO DAILY 08/09/15 Valsartan [Diovan] 80 mg PO HS 08/09/15 predniSONE [Deltasone -] 5 mg PO DAILY 08/09/15 Amlodipine Besylate 10 mg PO DAILY 12/01/16 Active Medications Acetaminophen (Tylenol -) 650 mg PO Q6H PRN PRN Reason: Pain Level 4-10 Last Admin: 09/21/17 06:34 Dose: 650 mg Amlodipine Besylate (Norvasc -) 10 mg PO DAILY [facility] Last Admin: 09/22/17 09:28 Dose: 10 mg Atorvastatin Calcium (Lipitor -) 40 mg PO [facility] Last Admin: 09/21/17 21:15 Dose: 40 mg Ferrous Sulfate (Feosol -) 325 mg PO BIDWM [facility] Last Admin: 09/22/17 08:52 Dose: 325 mg Levofloxacin (Levaquin 250 Mg Premixed Ivpb -) 250 mg in 50 mls @ 50 mls/hr IVPB DAILY [facility] Last Admin: 09/22/17 09:28 Dose: 50 mls/hr Insulin Aspart (Novolog Vial Sliding Scale -) 1 vial SQ TIDAC [facility]; Protocol Last Admin: 09/22/17 11:45 Dose: Not Given Metoprolol Succinate (Toprol Xl -) 100 mg PO DAILY [facility] Last Admin: 09/22/17 09:28 Dose: 100 mg Prednisone (Deltasone -) 5 mg PO DAILY [facility] Last Admin: 09/22/17 09:28 Dose: 5 mg Ranitidine HCl (Zantac -) 150 mg PO DAILY [facility] Last Admin: 09/22/17 09:28 Dose: 150 mg Tramadol HCl (Ultram -) 50 mg PO Q8H PRN PRN Reason: Pain Level 8-10 BREAKTHROUGH Last Admin: 09/20/17 20:04 Dose: 50 mg Valsartan (Diovan -) 80 mg PO [facility] Last Admin: 09/21/17 21:15 Dose: Not Given Laboratory Results - last 24 hr 09/21/17 09/22/1718 16:28 06:00 06:00 WBC 5.3 RBC 2.35 L Hgb 7.5 L Hct 22.4 L MCV 95.1 MCH 32.1 MCHC 33.7 RDW 14.6 Plt Count 279 MPV 7.3 L Absolute Neuts (auto) 3.1 Neutrophils % 58.7 Lymphocytes % 26.7 Monocytes % 11.6 H Eosinophils % 2.5 Basophils % 0.5 Nucleated RBC % 0 Sodium 140 Potassium 4.0 Chloride 104 Carbon Dioxide 27 Anion Gap 9 BUN 27 H Creatinine 1.6 H Creat Clearance w eGFR 31.34 POC Glucometer 192 Random Glucose 89 Calcium 8.1 L Phosphorus 3.0 Magnesium 1.8 Total Bilirubin 0.4 D AST 14 L ALT 9 L Alkaline Phosphatase 38 L Total Protein 6.6 Albumin 2.5 L Blood Type Antibody Screen Crossmatch 09/22/17 09/22/17 09/22/17 06:38 09:35 11:32 WBC RBC Hgb Hct MCV MCH MCHC RDW Plt Count MPV Absolute Neuts (auto) Neutrophils % Lymphocytes % Monocytes % Eosinophils % Basophils % Nucleated RBC % Sodium Potassium Chloride Carbon Dioxide Anion Gap BUN Creatinine Creat Clearance w eGFR POC Glucometer 111 110 Random Glucose Calcium Phosphorus Magnesium Total Bilirubin AST ALT Alkaline Phosphatase Total Protein Albumin Blood Type A POSITIVE Antibody Screen Negative Crossmatch See Detail ASSESSMENT AND PLAN: 76F with DM2, RA on chronic steroids, RCCC s/p nephrectomy, dyslipidema and HTN presented to the ER with RLE wound after trauma and found to have a large hematoma. -RLE hematoma s/p trauma s/p bedside clot evaluation and OR debridement with wound vac (09/20) -BRENNEN on CKD stage III (baseline Cr 1.7) -Acute blood loss anemia from blood loss in leg, suspect now equilibrating, also with iron deficiency -NIDDM -RA -HTN -HLD plan: Transfuse 1 unit pRBC, Monitor CBC, suspect is equilibrating. Discussed with Dr. Mckeon, ordered for home wound vac supplies, planfor d/c home with VNS when available . ID input noted. levaquin with PO transition on d/c per ID. Fe suppl, colonoscopy scheduled this summer. Statin Amlodipine/metoprolol/valsartan. Continue prednisone. DVTPPX with SCDs dispo home with VNS when wound vac arrangements made. plan discussed with patient in detail, all questions answered.
--- NOTE | 2017-09-22 14:53 | PN ---
Physical Exam: SUBJECTIVE: Patient seen and examined. No fevers, overnight, tolerating PO. Pain managed with medications. OBJECTIVE: Vital Signs Period Temp Pulse Resp BP Sys/Olson Pulse Ox Last 24 Hr 98.2 F-98.5 F 86-92 18-20 105-116/59-65 96-98 Vital Signs Temp 98.3 F 09/22/17 10:00 Pulse 92 H 09/22/17 10:00 Resp 18 09/22/17 10:00 BP 116/64 09/22/17 10:00 Pulse Ox 98 09/22/17 09:00 Intake & Output 09/21/17 09/22/17 09/22/17 23:59 11:59 23:59 Intake Total 170 Output Total 400 Balance -230 Intake: IVPB 50 Oral 120 Output: Urine 400 Void 400 Other: Voiding Method Bedpan Bedpan # Unmeasured Voids Void 1 Bowel Movement No # Bowel Movements 1 Intake & Output 09/19/17 09/20/17 09/21/17 09/22/17 23:59 23:59 23:59 23:59 Intake Total 50 200 220 Output Total 400 405 400 Balance -350 -205 -180 GENERAL: The patient is awake, alert, and fully oriented, in no acute distress. LUNGS: Breath sounds equal, clear to auscultation bilaterally HEART: Regular rate and rhythm, S1, S2 without murmur ABDOMEN: obese, Soft, nontender, nondistended, normoactive bowel sounds EXTREMITIES:R mathew wound dressed and to wound vac NEUROLOGICAL: AAOx3, normal tone and strength globally. No facial droop. Normal speech. Reduced hearing. CBC, BMP 09/22/17 06:00 09/22/17 06:00 Laboratory Results - last 24 hr 09/21/17 09/22/17 09/22/17 16:28 06:00 06:00 WBC 5.3 RBC 2.35 L Hgb 7.5 L Hct 22.4 L MCV 95.1 MCH 32.1 MCHC 33.7 RDW 14.6 Plt Count 279 MPV 7.3 L Absolute Neuts (auto) 3.1 Neutrophils % 58.7 Lymphocytes % 26.7 Monocytes % 11.6 H Eosinophils % 2.5 Basophils % 0.5 Nucleated RBC % 0 Sodium 140 Potassium 4.0 Chloride 104 Carbon Dioxide 27 Anion Gap 9 BUN 27 H Creatinine 1.6 H Creat Clearance w eGFR 31.34 POC Glucometer 192 Random Glucose 89 Calcium 8.1 L Phosphorus 3.0 Magnesium 1.8 Total Bilirubin 0.4 D AST 14 L ALT 9 L Alkaline Phosphatase 38 L Total Protein 6.6 Albumin 2.5 L Blood Type Antibody Screen Crossmatch 09/22/17 09/22/17 09/22/17 06:38 09:35 11:32 WBC RBC Hgb Hct MCV MCH MCHC RDW Plt Count MPV Absolute Neuts (auto) Neutrophils % Lymphocytes % Monocytes % Eosinophils % Basophils % Nucleated RBC % Sodium Potassium Chloride Carbon Dioxide Anion Gap BUN Creatinine Creat Clearance w eGFR POC Glucometer 111 110 Random Glucose Calcium Phosphorus Magnesium Total Bilirubin AST ALT Alkaline Phosphatase Total Protein Albumin Blood Type A POSITIVE Antibody Screen Negative Crossmatch See Detail Current Medications Acetaminophen (Tylenol -) 650 mg PO Q6H PRN PRN Reason: Pain Level 4-10 Last Admin: 09/21/17 06:34 Dose: 650 mg Amlodipine Besylate (Norvasc -) 10 mg PO DAILY [facility] Last Admin: 09/22/17 09:28 Dose: 10 mg Atorvastatin Calcium (Lipitor -) 40 mg PO HS [facility] Last Admin: 09/21/17 21:15 Dose: 40 mg Ferrous Sulfate (Feosol -) 325 mg PO BIDWM [facility] Last Admin: 09/22/17 08:52 Dose: 325 mg Levofloxacin (Levaquin 250 Mg Premixed Ivpb -) 250 mg in 50 mls @ 50 mls/hr IVPB DAILY [facility] Last Admin: 09/22/17 09:28 Dose: 50 mls/hr Insulin Aspart (Novolog Vial Sliding Scale -) 1 vial SQ TIDAC [facility]; Protocol Last Admin: 09/22/17 11:45 Dose: Not Given Metoprolol Succinate (Toprol Xl -) 100 mg PO DAILY [facility] Last Admin: 09/22/17 09:28 Dose: 100 mg Prednisone (Deltasone -) 5 mg PO DAILY [facility] Last Admin: 09/22/17 09:28 Dose: 5 mg Ranitidine HCl (Zantac -) 150 mg PO DAILY [facility] Last Admin: 09/22/17 09:28 Dose: 150 mg Tramadol HCl (Ultram -) 50 mg PO Q8H PRN PRN Reason: Pain Level 8-10 BREAKTHROUGH Last Admin: 09/20/17 20:04 Dose: 50 mg Valsartan (Diovan -) 80 mg PO HS [facility] Last Admin: 09/21/17 21:15 Dose: Not Given Ambulatory Orders Aspirin [ASA -] 81 mg PO HS 08/09/15 Atorvastatin Ca [Lipitor] 40 mg PO HS 08/09/15 Certolizumab Pegol [Cimzia] 400 mg SQ MONTHLY 08/09/15 Metoprolol Succinate [Toprol XL -] 100 mg PO DAILY 08/09/15 Nateglinide [Starlix (Nf) -] 120 mg PO ASDIR 08/09/15 Ranitidine HCl [Zantac] 150 mg PO DAILY 08/09/15 Sitagliptin Phosphate [Januvia] 100 mg PO DAILY 08/09/15 Valsartan [Diovan] 80 mg PO HS 08/09/15 predniSONE [Deltasone -] 5 mg PO DAILY 08/09/15 Amlodipine Besylate 10 mg PO DAILY 12/01/16 Microbiology 09/16/17 23:33 Blood - Peripheral Venous Blood Culture - Final NO GROWTH AFTER 5 DAYS INCUBATION 09/16/17 23:33 Blood - Peripheral Venous Blood Culture - Final NO GROWTH AFTER 5 DAYS INCUBATION ASSESSMENT/PLAN: 76 yo F h/o HTN, HLD, DM, RA, kidney CA s/p nephrectomy admitted for non- healing RLE wound 2/2 trauma. R mathew traumatic wound with hematoma - large hematoma now s/p blood clot evacuation and debridement (09/20/17) - Now on wound vac - For vac change by Dr Mckeon on Tuesday and then dc planning - Cefazolin (started 09/17/17) day 5- ID on board- changed to levaquin - Superficial Wound culture and sensitivity resistant to cefazolin, orgs pansensitive to quinolones (per Dr Mckeon- ID following, culture was from prior to clot evacuation - wound very clean at OR could probably d/c abx by Tuesday) - Cont to hold asa - Tylenol for pain scale 1-5, tramadol 6-10 - Avoid NSAID -Per Dr Mckeon-Home vac to be delivered to bedside and applied here by Dr Mckeon prior to discharge -Pt to be discharged with VNS to continue VAC changes MWF at home -Dr Mckeon- discussed possibility that skin graft may be considered at some point in future, depending on how wound closure progresses. HTN - meds held with low BP yesterday - cont home norvasc, topolol, HLD - Cont. home med Reumatoid arthritis - Cont. predisone, -certolizumab on hold pt's security system administrator ([facility]) to be contacted about medication adjustments to maximize wound healing DM - BGM and ISS CKD -S/p nephrectomy - Likely 2/2 kidney CA - At baseline Anemia - Iron def at baseline -cont iron supplement FEN - Lytes normal - Na+ and DM diet - NPO after midnight DVT ppx - Early ambulation Dispo - Will need wound vac and VNS on discharge -Likely Dc Tuesday Visit type - Emergency Visit Emergency Visit: Yes ED Registration Date: 09/17/17 Care time: The patient presented to the Emergency Department on the above date and was hospitalized for further evaluation of their emergent condition. - New Patient This patient is new to me today: No - Critical Care Critical Care patient: No - Discharge Referral Referred to [facility] No
--- NOTE | 2017-09-22 18:13 | PN ---
Progress Note, Physician History of Present Illness: Pt with large traumatic hematoma right lateral lower leg, s/p OR debridement and VAC application. Pain minimal. Pt has been OOB and ambulated. On Ancef per ID. Wound is clean and granulating. VAC has been showing blockage in tubing, canister replaced by nursing without complete resolution. I was able to manipulate trac-pad at the sponge and clear the path with resumption of full suction, but it started alarming again per nurse. Pt has no complaints. - Current Medication List Current Medications: Active Medications Acetaminophen (Tylenol -) 650 mg PO Q6H PRN PRN Reason: Pain Level 4-10 Last Admin: 09/21/17 06:34 Dose: 650 mg Amlodipine Besylate (Norvasc -) 10 mg PO DAILY [facility] Last Admin: 09/22/17 09:28 Dose: 10 mg Atorvastatin Calcium (Lipitor -) 40 mg PO HS [facility] Last Admin: 09/21/17 21:15 Dose: 40 mg Ferrous Sulfate (Feosol -) 325 mg PO BIDWM [facility] Last Admin: 09/22/17 17:26 Dose: 325 mg Levofloxacin (Levaquin 250 Mg Premixed Ivpb -) 250 mg in 50 mls @ 50 mls/hr IVPB DAILY [facility] Last Admin: 09/22/17 09:28 Dose: 50 mls/hr Insulin Aspart (Novolog Vial Sliding Scale -) 1 vial SQ TIDAC [facility]; Protocol Last Admin: 09/22/17 17:17 Dose: Not Given Metoprolol Succinate (Toprol Xl -) 100 mg PO DAILY [facility] Last Admin: 09/22/17 09:28 Dose: 100 mg Prednisone (Deltasone -) 5 mg PO DAILY [facility] Last Admin: 09/22/17 09:28 Dose: 5 mg Ranitidine HCl (Zantac -) 150 mg PO DAILY [facility] Last Admin: 09/22/17 09:28 Dose: 150 mg Tramadol HCl (Ultram -) 50 mg PO Q8H PRN PRN Reason: Pain Level 8-10 BREAKTHROUGH Last Admin: 09/20/17 20:04 Dose: 50 mg Valsartan (Diovan -) 80 mg PO [facility] Last Admin: 09/21/17 21:15 Dose: Not Given - Objective Vital Signs: Vital Signs Temperature 98.0 F 09/22/17 15:21 Pulse Rate 87 09/22/17 15:21 Respiratory Rate 18 09/22/17 15:21 Blood Pressure 133/82 09/22/17 15:21 O2 Sat by Pulse Oximetry (%) 98 09/22/17 09:00 Constitutional: Yes: No Distress, Calm, Obese Eyes: Yes: Conjunctiva Clear, EOM Intact HENT: Yes: Atraumatic, Normocephalic Extremities: Yes: Deformity (rheumatoid joints), Other (RLL with VAC). No: Cool , Cyanosis Integumentary: Yes: Other (VAC on RLL, dressing intact with good seal but intermittent blockage of tubing, serosang drainage in canister). No: Erythema, Rash Wound/Incision: Yes: Dressing Dry and Intact (VAC RLL) Neurological: Yes: Alert, Oriented Labs: CBC, BMP 09/22/17 06:00 09/22/17 06:00 Problem List - Problems (1) Traumatic hematoma of right lower leg Assessment/Plan: s/p traumatic wound to right lateral lower leg 2 wks ago in diabetic patient on baby aspirin and steroid/biologic for RA, developed large hematoma with full- thickness skin necrosis POD2 s/p OR debridement of wound edges, application of VAC dressing VAC intact with good seal, serosang drainage replaced trac-pad at bedside and reinforced drape with stable suction at -125mm pressure no pain ambulating with assistance, PT plan to change VAC tomorrow with home supplies will be able to d/c home when home supplies arrive, with VNS to continue VAC changes MWF at home Also discussed possibility that skin graft may be considered at some point in future, depending on how wound closure progresses. Will contact pt's car worker helper (Jin Palmer) to discuss holding Cimzia this week and whether medication adjustments might be entertained to maximize wound healing potential. holding aspirin for now Tylenol prn avoid NSAIDs, given renal and bleeding issues ID following culture was from prior to clot evacuation - wound very clean at OR could probably d/c abx by Tuesday Code(s): S80.11XA - CONTUSION OF RIGHT LOWER LEG, INITIAL ENCOUNTER Qualifiers: Encounter type: sequela Qualified Code(s): S80.11XS - Contusion of right lower leg, sequela (2) S/p total knee replacement, bilateral Code(s): Z96.653 - PRESENCE OF ARTIFICIAL KNEE JOINT, BILATERAL (3) Rheumatoid arthritis Code(s): M06.9 - RHEUMATOID ARTHRITIS, UNSPECIFIED Qualifiers: Rheumatoid arthritis location: multiple sites Rheumatoid factor presence: unspecified presence Qualified Code(s): M06.9 - Rheumatoid arthritis, unspecified (4) Diabetes mellitus type 2 in obese Code(s): E11.69 - TYPE 2 DIABETES MELLITUS WITH OTHER SPECIFIED COMPLICATION; E66.9 - OBESITY, UNSPECIFIED (5) HLD (hyperlipidemia) Code(s): E78.5 - HYPERLIPIDEMIA, UNSPECIFIED Qualifiers: Hyperlipidemia type: unspecified Qualified Code(s): E78.5 - Hyperlipidemia , unspecified (6) HTN (hypertension) Code(s): I10 - ESSENTIAL (PRIMARY) HYPERTENSION Qualifiers: Hypertension type: essential hypertension Qualified Code(s): I10 - Essential (primary) hypertension (7) H/O malignant neoplasm of kidney Code(s): Z85.528 - PERSONAL HISTORY OF OTHER MALIGNANT NEOPLASM OF KIDNEY
[2017-09-22 18:20] LABS: HEMATOCRIT 26.4 % (32.4-45.2); HEMOGLOBIN 8.8 GM/dL (10.7-15.3); MCH 31.6 pg (25.7-33.7); MCHC 33.5 g/dl (32.0-36.0); MEAN CELL VOLUME 94.3 fl (80-96); MEAN PLT VOLUME 7.4 fl (7.5-11.1); PLATELET COUNT 315 K/MM3 (134-434); WHITE BLOOD COUNT 5.9 K/mm3 (4.0-10.0)
[2017-09-22] MEDS ORDERED: PT OWN MED DRAWER 7, Y5N ONE (19:35)
[2017-09-22] MEDS: VALSARTAN 80 MG TABLET (UD) PO SCH (21:14)
[2017-09-22] MEDS: ATORVASTATIN CA 40 MG TABLET (FP) PO SCH (21:14)
[2017-09-23] MEDS: INSULIN SLIDING SCALE (NOVOLOG) 1 VIAL SQ SCH ×3 (06:05→16:42)
[2017-09-23 07:16] LABS: BASO % 0.6 % (0-2.0); EOS % 3.1 % (0-4.5); HEMATOCRIT 26.5 % (32.4-45.2); MCH 31.8 pg (25.7-33.7); MEAN CELL VOLUME 93.5 fl (80-96); MEAN PLT VOLUME 7.2 fl (7.5-11.1); MONO % 10.4 % (3.8-10.2); NEUT % 55.9 % (42.8-82.8); PLATELET COUNT 294 K/MM3 (134-434); RBC 2.83 M/mm3 (3.60-5.2); RDW 14.9 % (11.6-15.6)
[2017-09-23] MEDS: FERROUS SO4 325 MG TABLET (FP) PO SCH ×2 (08:52→17:17)
[2017-09-23] MEDS: predniSONE 5 MG TABLET (UD) PO SCH (09:45)
[2017-09-23] MEDS: RANITIDINE HCL 150 MG TABLET (FP) PO SCH (09:45)
[2017-09-23] MEDS: amLODIPine BESYLATE 10 MG TABLET (FP) PO SCH (09:45)
[2017-09-23] MEDS: ACETAMINOPHEN 325 MG TABLET (FP) PO PRN (12:32)
--- NOTE | 2017-09-23 13:25 | DS ---
Physical Exam: SUBJECTIVE: Patient seen and examined. No fevers, pain is controlled. OBJECTIVE: Vital Signs Period Temp Pulse Resp BP Sys/Olson Pulse Ox Last 24 Hr 97.5 F-98.5 F 73-87 18-18 118-133/64-82 96-97 Vital Signs Temp 97.9 F 09/23/17 17:05 Pulse 74 09/23/17 17:05 Resp 18 09/23/17 17:05 BP 113/66 09/23/17 17:05 Pulse Ox 96 09/23/17 09:00 Intake & Output 09/22/17 09/23/17 09/23/17 23:59 11:59 23:59 Intake Total 620 360 50 Balance 620 360 50 Intake: IVPB 150 120 50 Oral 120 240 Packed Cells 350 Other: Voiding Method Bedpan Bedpan Toilet PHYSICAL EXAM GENERAL: The patient is awake, alert, and fully oriented, in no acute distress. LUNGS: Breath sounds equal, clear to auscultation bilaterally HEART: Regular rate and rhythm, S1, S2 without murmur ABDOMEN: obese, Soft, nontender, nondistended, normoactive bowel sounds EXTREMITIES: Rt Benson with wound with transparent dressing, up to 20cm by about 15cm with wound vac applied. L benson normal. 2+ pulses bilat. NEUROLOGICAL: AAOx3, normal tone and strength globally. No facial droop. Normal speech. Reduced hearing. LABS Laboratory Results - last 24 hr 09/22/17 09/22/17 09/23/17 16:55 18:00 05:47 WBC 5.9 RBC 2.80 L Hgb 8.8 L D Hct 26.4 L D MCV 94.3 MCH 31.6 MCHC 33.5 RDW 15.0 Plt Count 315 MPV 7.4 L Absolute Neuts (auto) Neutrophils % Lymphocytes % Monocytes % Eosinophils % Basophils % Nucleated RBC % POC Glucometer 148 98 09/23/17 09/23/17 06:40 12:02 WBC 5.0 RBC 2.83 L Hgb 9.0 L Hct 26.5 L MCV 93.5 MCH 31.8 MCHC 34.0 RDW 14.9 Plt Count 294 MPV 7.2 L Absolute Neuts (auto) 2.8 Neutrophils % 55.9 Lymphocytes % 30.0 Monocytes % 10.4 H Eosinophils % 3.1 Basophils % 0.6 Nucleated RBC % 0 POC Glucometer 119 Current Medications Acetaminophen (Tylenol -) 650 mg PO Q6H PRN PRN Reason: Pain Level 4-10 Last Admin: 09/21/17 06:34 Dose: 650 mg Amlodipine Besylate (Norvasc -) 10 mg PO DAILY [facility] Last Admin: 09/22/17 09:28 Dose: 10 mg Atorvastatin Calcium (Lipitor -) 40 mg PO HS [facility] Last Admin: 09/21/17 21:15 Dose: 40 mg Ferrous Sulfate (Feosol -) 325 mg PO BIDWM [facility] Last Admin: 09/22/17 08:52 Dose: 325 mg Levofloxacin (Levaquin 250 Mg Premixed Ivpb -) 250 mg in 50 mls @ 50 mls/hr IVPB DAILY [facility] Last Admin: 09/22/17 09:28 Dose: 50 mls/hr Insulin Aspart (Novolog Vial Sliding Scale -) 1 vial SQ TIDAC [facility]; Protocol Last Admin: 09/22/17 11:45 Dose: Not Given Metoprolol Succinate (Toprol Xl -) 100 mg PO DAILY [facility] Last Admin: 09/22/17 09:28 Dose: 100 mg Prednisone (Deltasone -) 5 mg PO DAILY [facility] Last Admin: 09/22/17 09:28 Dose: 5 mg Ranitidine HCl (Zantac -) 150 mg PO DAILY [facility] Last Admin: 09/22/17 09:28 Dose: 150 mg Tramadol HCl (Ultram -) 50 mg PO Q8H PRN PRN Reason: Pain Level 8-10 BREAKTHROUGH Last Admin: 09/20/17 20:04 Dose: 50 mg Valsartan (Diovan -) 80 mg PO [facility] Last Admin: 09/21/17 21:15 Dose: Not Given Ambulatory Orders Atorvastatin Ca [Lipitor] 40 mg PO HS 08/09/15 Metoprolol Succinate [Toprol XL -] 100 mg PO DAILY 08/09/15 Nateglinide [Starlix (Nf) -] 120 mg PO ASDIR 08/09/15 Ranitidine HCl [Zantac] 150 mg PO DAILY 08/09/15 Sitagliptin Phosphate [Januvia] 100 mg PO DAILY 08/09/15 Valsartan [Diovan] 80 mg PO HS 08/09/15 predniSONE [Deltasone -] 5 mg PO DAILY 08/09/15 Amlodipine Besylate 10 mg PO DAILY 12/01/16 Acetaminophen [Tylenol .Regular Strength -] 650 mg PO Q6H PRN tablet 09/23/17 Docusate Sodium [Colace] 100 mg PO DAILY #30 capsule 09/23/17 Ferrous Sulfate [Feosol] 325 mg PO DAILY #30 tablet 09/23/17 HOSPITAL COURSE: Date of Admission:09/17/17 Date of Discharge: 09/23/17 76 yo F h/o HTN, HLD, DM, RA, kidney CA s/p nephrectomy admitted for non- healing RLE wound 2/2 trauma. Pt had a R lateral benson traumatic wound with hematoma with evacuation of clots following full-thickness skin necrosis and POD3 s/p OR debridement of wound edges (09/20/17), with application of VAC dressing. Per surgery-VAC intact with good seal, serosang drainage, with medium Simplace black foam vac dressing, with good seal obtained at -125mm pressure. Pt noted to ambulate with assistance. Antibiotics to be d/cd (pt used cefazolin then levaquin ) at discharge - wound is very clean, healthy, red, granulating. She is to continue to HOLD ASPIRIN until cleared by surgery. She will go home with VNS to continue VAC changes MWF at home. October 05 week, VNS/VAC may be changed Tue, and Tuesday if possible. Skin graft may be considered at some point in future, depending on how wound closure progresses. Dr Mckeon (surgeon) spoke with pt's software client architect (Dr. Ian Pan, [facility]), who will hold Cimzia until wound is healed. She should still f/u with him soon. Pt will follow up with her PMD, Dr. Jeffry Bernal within 1-2 weeks. Tylenol prn, avoid NSAIDs, given renal and bleeding issues Pt is to continue her BP/HLD med- norvasc, topolol, lipitor. She will continue her oral hypoglycemics-Nateglinide and Sitagliptin Phosphate. She will continue iron supplement, with daily colace. She will continue prednisone for Rheumatoid arthritis, but hold certolizumab, see above. Copies of discharge summary to be sent to Drs. Pan and Dolores Pt was discharged home with VNS see above Minutes to complete discharge: 40 Discharge Summary Reason For Visit: DEHISCENCE OF WOUND Current Active Problems Diabetes mellitus type 2 in obese (Acute) H/O malignant neoplasm of kidney (Acute) Hematoma (Acute) Traumatic hematoma of right lower leg (Acute) Wound of skin (Acute) HLD (hyperlipidemia) (Chronic) HTN (hypertension) (Chronic) NIDDY (non-insulin dependent diabetes mellitus in young) (Chronic) Obesity (BMI 30.0-34.9) (Chronic) Rheumatoid arthritis (Chronic) S/p total knee replacement, bilateral (Chronic) Condition: Good - Instructions Diet, Activity, Other Instructions: Postoperative instructions: You had operative debridement of your right lower leg wound with VAC placement on 09/20/[address] Reyes Mckeon of [facility]. Activity/Wound Care: You may not shower with the VAC dressing in place. When the nurse is there to change the VAC, you could shower with the dressing OFF - it is ok to use soap and water on your wound, but no ointments or creams. The VAC dressing must be replaced just after cleansing. Alternatively, the nurse may cleanse the area with saline or soap and water. You may sponge bathe the rest of your body while VAC therapy is being used. The visiting nurse will continue VAC changes at home three times weekly. When you come to Dr. Mckeon's office, BRING VAC SUPPLIES WITH YOU - package with sponge in it, extra canister if needed, skin prep pads. Dr. Mckeon will change the VAC that day in the office. Pain: For pain, you may use Tylenol (acetaminophen) every 6 hours as needed. Do not take more than 4000mg of acetaminophen in a day. Take medications as prescribed or indicated on the labeling. DO NOT TAKE your baby aspirin until cleared by the surgeon. Continue taking your prednisone as usual. Follow-up: Call Dr. Mckeon's office at [phone] to make your postop appointment (on Tuesday as advised). Clinic is held in the [facility] on the first floor of [facility]. Call the office if you have: * increasing pain not responsive to pain medication * fever of 101F or higher * vomiting * unusual or increasing bleeding or drainage from wounds * increasing redness or swelling at wound sites You should see your software client architect (Dr. Ian Pan [facility]) within a week or two after discharge. Your Cimzia will be held until your wound is healed. You have been prescribed iron tablets by mouth. Note that they can make you constipated and turn your stool black. Also, see your primary medical doctor (Dr. Jeffry Bernal) within the next 2 weeks. Referrals: Ian Pan [Non Staff, Medical] - 1 Week Reyes Mckeon MD [Staff Physician] - 1 Week Jeffry Bernal [Non Staff, Medical] - Disposition: VNS/HOME HEALTH CARE - Home Medications Comprehensive Discharge Medication List: Ambulatory Orders Aspirin [ASA -] 81 mg PO HS 08/09/15 Atorvastatin Ca [Lipitor] 40 mg PO HS 08/09/15 Certolizumab Pegol [Cimzia] 400 mg SQ MONTHLY 08/09/15 Metoprolol Succinate [Toprol XL -] 100 mg PO DAILY 08/09/15 Nateglinide [Starlix (Nf) -] 120 mg PO ASDIR 08/09/15 Ranitidine HCl [Zantac] 150 mg PO DAILY 08/09/15 Sitagliptin Phosphate [Januvia] 100 mg PO DAILY 08/09/15 Valsartan [Diovan] 80 mg PO HS 08/09/15 predniSONE [Deltasone -] 5 mg PO DAILY 08/09/15 Amlodipine Besylate 10 mg PO DAILY 12/01/16 Acetaminophen [Tylenol .Regular Strength -] 650 mg PO Q6H PRN tablet 09/23/17 This patient is new to me today: No Emergency Visit: Yes ED Registration Date: 09/17/17 Care time: The patient presented to the Emergency Department on the above date and was hospitalized for further evaluation of their emergent condition. Critical Care patient: No - Discharge Referral Referred to [facility] No
--- NOTE | 2017-09-23 13:36 | PN ---
Progress Note, Physician History of Present Illness: Pt with large traumatic hematoma right lateral lower leg, s/p OR debridement and VAC application. Pain minimal. Pt has been OOB and ambulating. On abx per ID. VAC in place with good seal. Pt has no complaints. Got blood yesterday. - Current Medication List Current Medications: Active Medications Acetaminophen (Tylenol -) 650 mg PO Q6H PRN PRN Reason: Pain Level 4-10 Last Admin: 09/23/17 12:32 Dose: 650 mg Amlodipine Besylate (Norvasc -) 10 mg PO DAILY [facility] Last Admin: 09/23/17 09:45 Dose: 10 mg Atorvastatin Calcium (Lipitor -) 40 mg PO HS [facility] Last Admin: 09/22/17 21:14 Dose: 40 mg Ferrous Sulfate (Feosol -) 325 mg PO BIDWM [facility] Last Admin: 09/23/17 08:52 Dose: 325 mg Levofloxacin (Levaquin 250 Mg Premixed Ivpb -) 250 mg in 50 mls @ 50 mls/hr IVPB DAILY [facility] Last Admin: 09/23/17 09:45 Dose: 50 mls/hr Insulin Aspart (Novolog Vial Sliding Scale -) 1 vial SQ TIDAC [facility]; Protocol Last Admin: 09/23/17 12:27 Dose: Not Given Metoprolol Succinate (Toprol Xl -) 100 mg PO DAILY [facility] Last Admin: 09/23/17 09:45 Dose: 100 mg Prednisone (Deltasone -) 5 mg PO DAILY [facility] Last Admin: 09/23/17 09:45 Dose: 5 mg Ranitidine HCl (Zantac -) 150 mg PO DAILY [facility] Last Admin: 09/23/17 09:45 Dose: 150 mg Tramadol HCl (Ultram -) 50 mg PO Q8H PRN PRN Reason: Pain Level 8-10 BREAKTHROUGH Last Admin: 09/20/17 20:04 Dose: 50 mg Valsartan (Diovan -) 80 mg PO [facility] Last Admin: 09/22/17 21:14 Dose: 80 mg - Objective Vital Signs: Vital Signs Temperature 97.6 F 09/23/17 10:00 Pulse Rate 75 09/23/17 10:00 Respiratory Rate 18 09/23/17 10:00 Blood Pressure 133/64 09/23/17 10:00 O2 Sat by Pulse Oximetry (%) 96 09/23/17 09:00 Constitutional: Yes: No Distress, Calm, Obese Eyes: Yes: Conjunctiva Clear, EOM Intact HENT: Yes: Atraumatic, Normocephalic Extremities: Yes: Deformity (rheumatoid joints). No: Cool, Cyanosis, Erythema Integumentary: Yes: Other (VAC on R lower leg wound). No: Rash Wound/Incision: Yes: Dressing Dry and Intact (VAC intact), Dressing Removed ( and VAC dressing replaced with medium Simplace black foam (two pieces), good seal obtained at -125mm pressure; skin prep used around entire wound area first) , Draining (serosang in canister), Bleeding (very healthy oozing from beefy red granular surface of most of wound, stopped with pressure and time), Unapproximated (wound very clean, red, granulating 95-100%, oozes with sponge removal; no undermining at inferior edge, almost at skin surface; superior residual pocket ~1-1.5cm under edge only) Neurological: Yes: Alert, Oriented Labs: CBC, BMP 09/23/17 06:40 Problem List - Problems (1) Traumatic hematoma of right lower leg Assessment/Plan: s/p traumatic wound to right lateral lower leg 2 wks ago in diabetic patient on baby aspirin and steroid/biologic for RA, developed large hematoma with full- thickness skin necrosis POD3 s/p OR debridement of wound edges, application of VAC dressing VAC intact with good seal, serosang drainage VAC dressing replaced with medium Simplace black foam, good seal obtained at - 125mm pressure minimal pain ambulating well with assistance, PT walked past nursing station earlier can stop antibiotics - wound is very clean, healthy, red, granulating she should not need abx on discharge continue to HOLD ASPIRIN until cleared by surgery d/c home today with VNS to continue VAC changes MWF at home October 05 week, VNS/VAC may be changed Tue, and Tuesday if possible details are in d/c plan Skin graft may be considered at some point in future, depending on how wound closure progresses. Spoke with pt's wire straightener (Dr. Ian Pan [facility]), who will hold Cimzia until wound is healed. She should still f/u with him soon. Also, she should see her PMD, Dr. Jeffry Bernal within 1-2 weeks. Please send Drs. Pan and Dolores cc:s of discharge summary. Tylenol prn avoid NSAIDs, given renal and bleeding issues Code(s): S80.11XA - CONTUSION OF RIGHT LOWER LEG, INITIAL ENCOUNTER Qualifiers: Encounter type: sequela Qualified Code(s): S80.11XS - Contusion of right lower leg, sequela (2) S/p total knee replacement, bilateral Code(s): Z96.653 - PRESENCE OF ARTIFICIAL KNEE JOINT, BILATERAL (3) Rheumatoid arthritis Assessment/Plan: on chronic low-dose prednisone - to continue, has been on for many years Cimzia to be held by rheumatology see above Code(s): M06.9 - RHEUMATOID ARTHRITIS, UNSPECIFIED Qualifiers: Rheumatoid arthritis location: multiple sites Rheumatoid factor presence: unspecified presence Qualified Code(s): M06.9 - Rheumatoid arthritis, unspecified (4) Diabetes mellitus type 2 in obese Code(s): E11.69 - TYPE 2 DIABETES MELLITUS WITH OTHER SPECIFIED COMPLICATION; E66.9 - OBESITY, UNSPECIFIED (5) HLD (hyperlipidemia) Code(s): E78.5 - HYPERLIPIDEMIA, UNSPECIFIED Qualifiers: Hyperlipidemia type: unspecified Qualified Code(s): E78.5 - Hyperlipidemia , unspecified (6) HTN (hypertension) Code(s): I10 - ESSENTIAL (PRIMARY) HYPERTENSION Qualifiers: Hypertension type: essential hypertension Qualified Code(s): I10 - Essential (primary) hypertension (7) H/O malignant neoplasm of kidney Code(s): Z85.528 - PERSONAL HISTORY OF OTHER MALIGNANT NEOPLASM OF KIDNEY
--- NOTE | 2017-09-23 14:06 | PN ---
Teaching Attending Note Name of Resident: Polly Larsen ATTENDING PHYSICIAN STATEMENT I saw and evaluated the patient. I reviewed the resident's note and discussed the case with the resident. I agree with the resident's findings and plan as documented with exceptions below. SUBJECTIVE: Patient seen and examined. no pain or new complaints. OBJECTIVE: Vital Signs Period Temp Pulse Resp BP Sys/Olson Pulse Ox Last 24 Hr 97.5 F-98.5 F 73-87 18-18 118-133/64-82 96-97 Intake & Output 09/20/17 09/21/17 09/22/17 09/23/17 23:59 23:59 23:59 23:59 Intake Total 200 220 620 360 Output Total 405 400 Balance -205 -180 620 360 General: sitting in bed in no acute distress Extremities: right wound vac present, no surrounding swelling/erythema/ tenderness or discharge Laboratory Results - last 24 hr 09/22/17 09/22/17 09/23/17 16:55 18:00 05:47 WBC 5.9 RBC 2.80 L Hgb 8.8 L D Hct 26.4 L D MCV 94.3 MCH 31.6 MCHC 33.5 RDW 15.0 Plt Count 315 MPV 7.4 L Absolute Neuts (auto) Neutrophils % Lymphocytes % Monocytes % Eosinophils % Basophils % Nucleated RBC % POC Glucometer 148 98 09/23/17 09/23/17 06:40 12:02 WBC 5.0 RBC 2.83 L Hgb 9.0 L Hct 26.5 L MCV 93.5 MCH 31.8 MCHC 34.0 RDW 14.9 Plt Count 294 MPV 7.2 L Absolute Neuts (auto) 2.8 Neutrophils % 55.9 Lymphocytes % 30.0 Monocytes % 10.4 H Eosinophils % 3.1 Basophils % 0.6 Nucleated RBC % 0 POC Glucometer 119 ASSESSMENT AND PLAN: 76F with DM2, RA on chronic steroids, RCCC s/p nephrectomy, dyslipidema and HTN presented to the ER with RLE wound after trauma and found to have a large hematoma. -RLE hematoma s/p trauma s/p bedside clot evaluation and OR debridement with wound vac (09/20) -BRENNEN on CKD stage III (baseline Cr 1.7) -Acute blood loss anemia from blood loss in leg, suspect now equilibrating, also with iron deficiency -NIDDM -RA -HTN -HLD plan: Appropriate response to PRBC. doing well. Wound VAC dressing changed, home VNS arranged. Hold ASA till further instructed by surgery. Discussed by Dr. Mckeon with Dr. Pan, plan to hold Cimizia. D/c home with VNS for wound care. plan discussed with patient in detail, all questions answered.
[2017-09-23 17:06] VITALS: BP 113/66; PULSE 74; TEMP 97.9
== END 2017-09-23 19:39 | disposition home health service (06) | DRG 571 ==
LOC: JER 21:11 → JERBED 09-17 00:54 → UNDOADMIN 09-17 00:57 → JERBED 09-17 00:57 → UNDOADMIN 09-17 01:04 → JERBED 09-17 01:04 → J7W 09-17 02:44
PROVIDERS: ADMIT Internal Medicine; ATTEND Hospitalist
PROC: 2W1LX6Z Compression of Right Lower Extremity using Pressure Dressing (ICD-10-PCS; 2017-09-20)
PROC: 0JBN0ZZ Excision of Right Lower Leg Subcutaneous Tissue and Fascia, Open Approach (ICD-10-PCS; principal; 2017-09-20 13:00)
PROC: 30233N1 Transfusion of Nonautologous Red Blood Cells into Peripheral Vein, Percutaneous Approach (ICD-10-PCS; 2017-09-22)
DX: S80.11XA Contusion of right lower leg, initial encounter (principal); D62 Acute posthemorrhagic anemia; N17.9 Acute kidney failure, unspecified; E11.9 Type 2 diabetes mellitus without complications; E78.5 Hyperlipidemia, unspecified; K21.9 Gastro-esophageal reflux disease without esophagitis; M06.9 Rheumatoid arthritis, unspecified; D21.9 Benign neoplasm of connective and other soft tissue, unspecified; H93.11 Tinnitus, right ear; D50.9 Iron deficiency anemia, unspecified; H91.8X1 Other specified hearing loss, right ear; M19.90 Unspecified osteoarthritis, unspecified site; I12.9 Hypertensive chronic kidney disease with stage 1 through stage 4 chronic kidney disease, or unspecified chronic kidney disease; E11.22 Type 2 diabetes mellitus with diabetic chronic kidney disease; N18.3 Chronic kidney disease, stage 3 (moderate); E66.8 Other obesity; Z68.31 Body mass index [BMI] 31.0-31.9, adult; Z90.5 Acquired absence of kidney; X58.XXXA Exposure to other specified factors, initial encounter; Y92.098 Other place in other non-institutional residence as the place of occurrence of the external cause; Z96.653 Presence of artificial knee joint, bilateral; Z85.53 Personal history of malignant neoplasm of renal pelvis
CPT/HCPCS: 36415; 36430; 36511; 73590-TC-RT-FY; 73700-TC-RT; 80048; 80053; 82962; 83735; 84100; 85025; 85027; 85610; 85651; 86850; 86900; 86901; 86922; 87040; 87070; 87186; 87205; 90715; 93005; 93010; 93971-TC; 94760; 97116-GP; 97162-GP; 99281-25; J0131; P9038; P9058